=== PATIENT | male | born 1930 | race Hispanic/Latino ===

== ENCOUNTER 2016-12-30 07:24 | Day surgery (SDC) | payer MEDICARE ==
[2016-11-22 19:06] VITALS: BMI 16.4
[2016-12-30 14:43] VITALS: RESP 18; O2SAT 96
--- NOTE | 2016-12-30 14:44 | CP.SDSHP ---
Same Day Surgery H & P - History Proposed Procedure: Removal of right tunneled PICC Pre-Op Diagnosis: Completion of IV medication - Allergies Allergies: Allergies No Known Allergies Allergy (Verified 12/30/16 08:41) - Physical Exam Vital Signs: Vital Signs 12/30/16 12/30/16 12/30/16 08:21 14:34 14:42 Temperature 97.9 F 97.5 F L 98.3 F Pulse Rate 82 88 71 Respiratory 18 16 18 Rate Blood Pressure 117/77 159/70 H 160/93 H O2 Sat by Pulse 98 98 96 Oximetry Short Stay Discharge - Short Stay Discharge Admitting Diagnosis/Reason for Visit: PICC LINE, DEHYDRATION, SEPSIS Disposition: HOME/ ROUTINE Referrals: Gareth Kent MD [Primary Care Provider] -
--- NOTE | 2016-12-30 14:45 | PCM.SURG1 ---
Surgeon's Initial Post Op Note - Surgeon's Notes Surgeon: Mayte [employer]: None Type of Anesthesia: Local Pre-Operative Diagnosis: Completion of the IV medication Operative Findings: Right tunneled PICC Post-Operative Diagnosis: Completion of IV medication Operation Performed: Removal of right tunneled PICC Specimen/Specimens Removed: Right tunneled PICC Estimated Blood Loss: EBL {In ML}: 1 Date of Surgery/Procedure: 12/30/16 Time of Surgery/Procedure: 14:00
[2016-12-30 15:22] VITALS: BP 148/72; PULSE 75; TEMP 97.8
--- NOTE | 2016-12-30 16:30 | VASCULAR ---
Removal of right-sided tunneled PICC History: Completion of long-term IV access. Comparison: Images from 08/01/2016. Procedure and findings: Informed consent was obtained after explaining relative risks and benefits of the procedure. A warehouse packer image of the right-sided tunneled PICC was obtained. The right neck was then prepped and draped in the usual sterile techniques. 1 % lidocaine was used to anesthetize and hydro dissect the tunneled segment of the existing catheter. Blunt and sharp dissection was used to free the cuffed segment. Eventually the PICC was removed. Compression over the venotomy site in the right IJV was performed to achieve hemostasis. A sterile dressing was placed over the tunneling site in the right upper chest. A fluoroscopic image demonstrating removal of the catheter was obtained. Impression: Successful removal of right-sided tunneled PICC.
== END 2016-12-30 15:41 | disposition home or self-care (01) ==
LOC: H.OPSURG 07:24
PROVIDERS: ATTEND Family Medicine
DX: Z45.2 Encounter for adjustment and management of vascular access device (principal)
CPT/HCPCS: 36589; A4310

== ENCOUNTER 2017-12-25 09:54 | Inpatient (IN) | payer MEDICARE ==
[2017-12-25 09:54] VITALS: BMI 16.4
[2017-12-25] MEDS ORDERED: Iohexol 240 (50 ml) PO ONE (10:32)
[2017-12-25] MEDS ORDERED: Sodium Chloride 0.9% 1,000 ML IV STA (10:33)
[2017-12-25] MEDS ORDERED: Iohexol 240 (50 ml) ONE (10:42)
--- NOTE | 2017-12-25 10:52 | ED PDOC ---
HPI: Abdomen Time Seen by Provider: 12/25/17 10:00 Chief Complaint (Nursing): Abdominal Pain Chief Complaint (Provider): Abdominal pain, diarrhea History Per: Patient History/Exam Limitations: no limitations Onset/Duration Of Symptoms: Days (x6) Current Symptoms Are (Timing): Still Present Quality Of Discomfort: Cramping Associated Symptoms: Vomiting, Diarrhea. denies: Fever, Chills, Chest Pain Additional Complaint(s): Ravinrda Engel is an 87 year old male with a past medical history of sinus, prostate, and kidney problems, who is presenting to the ER with complains of diarrhea with associated abdominal pain and cramping, onset 6 days ago. Patient reports that his last episode of diarrhea was at 4 am, and he also states he had one episode of vomiting. He denies any fevers, chills, headache, chest pain , or shortness of breath. Patient offers no other medical complaints at this time. PMD: none provided Past Medical History Reviewed: Historical Data, Nursing Documentation, Vital Signs Vital Signs: Last Vital Signs Temp 97.3 F L 12/28/17 20:00 Pulse 72 12/28/17 22:00 Resp 22 12/28/17 22:00 BP 115/62 12/28/17 22:00 Pulse Ox 100 12/28/17 22:00 - Medical History PMH: Benign Prostatic Hyperplasia, Cardia Arrhythmia (ATRIAL FIB.), HTN, Hypothyroidism, Chronic Kidney Disease Denies: Atrial Fibrillation, Bipolar Disorder - Surgical History Surgical History: No Surg Hx - Family History Family History: States: Unknown Family Hx - Social History Current smoker - smoking cessation education provided: No Alcohol: None Drugs: Denies - Immunization History Hx Tetanus Toxoid Vaccination: No Hx Influenza Vaccination: Yes Hx Pneumococcal Vaccination: Yes - Home Medications Home Medications: Ambulatory Orders Medication Instructions Recorded Calcitriol [Rocaltrol] 0.25 mcg PO DAILY 10/18/16 Calcium Acetate [Phoslo] 667 mg PO TID 12/30/16 Folic Acid/Vit B Complex and C 1 tab PO DAILY 12/30/16 [Renal Vitamin Tablet] Levothyroxine [Synthroid] 75 mcg PO DAILY 12/30/16 Ergocalciferol (Vitamin D2) 50,000 unit PO QWK 12/25/17 [Vitamin D2] Finasteride [Proscar] 5 mg PO QPM 12/25/17 Metoprolol Succinate [Toprol XL] 25 mg PO DAILY 12/25/17 Tamsulosin [Flomax] 0.4 mg PO QPM 12/25/17 - Allergies Allergies/Adverse Reactions: Allergies Allergy/AdvReac Type Severity Reaction Status Date / Time No Known Allergies Allergy Verified 12/25/17 10:03 Review of Systems ROS Statement: Except As Marked, All Systems Reviewed And Found Negative Constitutional: Negative for: Fever, Chills Cardiovascular: Negative for: Chest Pain Respiratory: Negative for: Shortness of Breath Gastrointestinal: Positive for: Vomiting, Abdominal Pain, Diarrhea Physical Exam - Reviewed Nursing Documentation Reviewed: Yes Vital Signs Reviewed: Yes - Physical Exam Appears: Positive for: Non-toxic, No Acute Distress Head Exam: Positive for: ATRAUMATIC, NORMAL INSPECTION, NORMOCEPHALIC Skin: Positive for: Normal Color, Warm, Dry Eye Exam: Positive for: EOMI, Normal appearance, PERRL ENT: Positive for: Other (dry mucous membranes) Neck: Positive for: Normal, Painless ROM, Supple Cardiovascular/Chest: Positive for: Regular Rate, Rhythm. Negative for: Murmur Respiratory: Positive for: Normal Breath Sounds. Negative for: Respiratory Distress Gastrointestinal/Abdominal: Positive for: Normal Exam, Soft. Negative for: Tenderness Back: Positive for: Normal Inspection. Negative for: L CVA Tenderness, R CVA Tenderness, Vertebral Tenderness Extremity: Positive for: Normal ROM. Negative for: Pedal Edema, Deformity Neurologic/Psych: Positive for: Alert, Oriented. Negative for: Motor/Sensory Deficits - Laboratory Results Result Diagrams: 12/28/17 04:20 12/28/17 04:20 - ECG O2 Sat by Pulse Oximetry: 98 (RA) Pulse Ox Interpretation: Normal Medical Decision Making Medical Decision Making: Time: 10:32 Plan: --CT Abd/Pelvis --CMP --CBC --IV Fluids --Omnipaque 240 50 ml PO Labs [address] CT ordered to rule out diverticulitis and colitis. Time: 15:04 Patient feeling gassy. Will order Pepcid. Low potassium noted due to diarrhea and will replete. Awaiting CT. Discussed all findings and plan with family. Patient is aware of chronic renal insufficiency. Time: 16:[address] Perez. Patient has a high grade small bowel obstruction. Calling patient's PMD Dr. Kent. CT ABDOMEN AND PELVIS FINDINGS: LOWER THORAX: Unremarkable. LIVER: Unremarkable. No gross lesion or ductal dilatation. Incidental finding(s): Simple cyst right hepatic lobe a finding identified previously and unchanged. GALLBLADDER AND BILE DUCTS: Unremarkable. PANCREAS: Unremarkable. No gross lesion or ductal dilatation. SPLEEN: Unremarkable. ADRENALS: Unremarkable. No mass. KIDNEYS AND URETERS: Unremarkable. No hydronephrosis. No solid mass. VASCULATURE: Unremarkable. No aortic aneurysm. BOWEL: Distal high-grade small bowel obstruction associate with "Whirl sign" APPENDIX: A normal appendix is not visualized PERITONEUM: Trace intra-abdominal pelvic ascites. No free air identified. LYMPH NODES: Unremarkable. No enlarged lymph nodes. BLADDER: Anterior bladder diverticulum. Otherwise unremarkable. REPRODUCTIVE: Unremarkable. BONES: Spell er right greater right high sec [place] [facility] daycare view in view HGB OTHER FINDINGS: None. IMPRESSION: High-grade distal small bowel obstruction with secondary signs suggestive of closed loop obstruction including rotation of the mesenteries and associated vessels. Communication of results: I discussed findings directly with attending physician in the emergency department, Dr. Espinoza. Results conveyed verbally at 16:14 Time: 16:19 Dr. Kent contacted, requesting Dr. Copeland for surgery. Time: 16:[address] Copeland. Ordered fluids, gilbert, NPO, NG tube. Dr. Copeland asked I contact the surgical garment fitter. spoke with the resident who placed the NGT in the ER. pt admitted to [facility] for surgery pt made aware and nephew made aware as well of plan. Scribe Attestation: Documented by Sanna Marroquni, acting as a scribe for Cierra Espinoza MD. Provider Scribe Attestation: All medical record entries made by the Scribe were at my direction and personally dictated by me. I have reviewed the chart and agree that the record accurately reflects my personal performance of the history, physical exam, medical decision making, and the department course for this patient. I have also personally directed, reviewed, and agree with the discharge instructions and disposition. Disposition - Clinical Impression Clinical Impression: Abdominal pain, Intestinal obstruction - Patient ED Disposition Is Patient to be Admitted: Yes Counseled Patient/Family Regarding: Studies Performed, Diagnosis - Disposition Disposition Time: 14:00 Condition: GUARDED - Pt Status Changed To: Hospital Disposition Of: Inpatient - Admit Certification Admit to Inpatient:: After my assessment, the patient will require hospitalization for at least two midnights. This is because of the severity of symptoms shown, intensity of services needed, and/or the medical risk in this patient being treated as an outpatient.
[2017-12-25 11:12] LABS: BASO % 0.4 % (0.0-2.0); EOS % 0.4 % (0.0-4.0); HEMOGLOBIN 13.1 g/dL (12.0-18.0); LYMPH # 0.9 K/uL (1.0-4.3); LYMPH % 11.1 % (20.0-40.0); MEAN CELL VOLUME 98.5 fl (80.0-94.0); MEAN CORPUSCULAR HEMOGLOBIN 33.2 pg (27.0-31.0); MEAN CORPUSCULAR HGB CONC 33.7 g/dL (33.0-37.0); MEAN PLATELET VOLUME 8.9 fl (7.2-11.7); MONO # 0.9 K/uL (0.0-0.8); MONO % 11.4 % (0.0-10.0); NEUT # 5.9 K/uL (1.8-7.0); NEUT % 76.7 % (50.0-75.0); RBC 3.95 Mil/uL (4.40-5.90); RED CELL DISTRIBUTION WIDTH 12.6 % (11.5-14.5); WHITE BLOOD COUNT 7.7 K/uL (4.8-10.8)
[2017-12-25 11:24] LABS: ALB/GLOB RATIO 1.3 (1.0-2.1); ALBUMIN 3.4 g/dL (3.5-5.0)
--- NOTE | 2017-12-25 14:49 | CARD ---
APPROVED REPORT EKG Measurement Heart [id number] <Conclusion> Sinus rhythm with occasional premature ventricular complexes Otherwise normal ECG
[2017-12-25] MEDS ORDERED: Potassium Chloride 20 mEq ER Tab PO ONE (14:57)
--- NOTE | 2017-12-25 16:23 | CT ---
PROCEDURE: CT Abdomen and Pelvis with contrast HISTORY: Diarrhea, abdominal pain COMPARISON: 07/27/2016 TECHNIQUE: Oral contrast only. Hepatic and are Radiation dose: Total exam DLP = 235.29 mGy-cm. This CT exam was performed using one or more of the following dose reduction techniques: Automated exposure control, adjustment of the mA and/or kV according to patient size, and/or use of iterative reconstruction technique. FINDINGS: LOWER THORAX: Unremarkable. LIVER: Unremarkable. No gross lesion or ductal dilatation. Incidental finding(s): Simple cyst right hepatic lobe a finding identified previously and unchanged. GALLBLADDER AND BILE DUCTS: Unremarkable. PANCREAS: Unremarkable. No gross lesion or ductal dilatation. SPLEEN: Unremarkable. ADRENALS: Unremarkable. No mass. KIDNEYS AND URETERS: Unremarkable. No hydronephrosis. No solid mass. VASCULATURE: Unremarkable. No aortic aneurysm. BOWEL: Distal high-grade small bowel obstruction associate with "Whirl sign" APPENDIX: A normal appendix is not visualized PERITONEUM: Trace intra-abdominal pelvic ascites. No free air identified. LYMPH NODES: Unremarkable. No enlarged lymph nodes. BLADDER: Anterior bladder diverticulum. Otherwise unremarkable. REPRODUCTIVE: Unremarkable. BONES: Spell er right greater right high sec [facility] daycare view in view HGB OTHER FINDINGS: None. IMPRESSION: High-grade distal small bowel obstruction with secondary signs suggestive of closed loop obstruction including rotation of the mesenteries and associated vessels. Communication of results: I discussed findings directly with attending physician in the emergency department, Dr. Espinoza. Results conveyed verbally at 16:14
--- NOTE | 2017-12-25 17:10 | CP.PCM.CON ---
History of Present Illness - History of Present Illness History of Present Illness: SURGERY CONSULT NOTE FOR DR. MURRAY 87M presents with abdominal distention and discomfort. He states he has been having these symptoms for the past 6 days. He states the symptoms have been associated with diarrhea with has also been going on for 6 days. He admits to nausea and vomiting. He vomited once yesterday and it consisted of food. He denies fevers and chills. PMH: Benign Prostatic Hyperplasia, Cardia Arrhythmia (ATRIAL FIB.), HTN, Hypothyroidism, Chronic Kidney Disease PSH: Denies Social: Denies tobacco, alcohol and illicit drugs Allergies: NKDA Past Patient History - Past Medical History & Family History Past Medical History?: Yes - Past Social History Smoking Status: Former Smoker - CARDIAC Hx Cardiac Disorders: Yes - PULMONARY Hx Respiratory Disorders: No - NEUROLOGICAL Hx Neurological Disorder: No - HEENT Hx HEENT Problems: No - RENAL Hx Chronic Kidney Disease: Yes - ENDOCRINE/METABOLIC Hx Endocrine Disorders: Yes - HEMATOLOGICAL/ONCOLOGICAL Hx Blood Disorders: No - INTEGUMENTARY Hx Dermatological Problems: No - MUSCULOSKELETAL/RHEUMATOLOGICAL Hx Musculoskeletal Disorders: No - GENITOURINARY/GYNECOLOGICAL Hx Genitourinary Disorders: No - PSYCHIATRIC Hx Psychophysiologic Disorder: No - SURGICAL HISTORY Hx Surgeries: Yes Hx Cataract Extraction: Yes (Left eye) Other/Comment: HX: PROSTATE BIOPSY. HX: CMG; CYSTO 10/23/16 - ANESTHESIA Hx Anesthesia: Yes Hx Anesthesia Reactions: No Hx Malignant Hyperthermia: No Meds Allergies/Adverse Reactions: Allergies Allergy/AdvReac Type Severity Reaction Status Date / Time No Known Allergies Allergy Verified 12/25/17 10:03 Physical Exam - Constitutional Appears: Other (uncomfortable) - Head Exam Head Exam: ATRAUMATIC - Eye Exam Eye Exam: EOMI, PERRL - ENT Exam ENT Exam: Mucous Membranes Moist - Respiratory Exam Respiratory Exam: Clear to Auscultation Bilateral, NORMAL BREATHING PATTERN - Cardiovascular Exam Cardiovascular Exam: REGULAR RHYTHM, +S1, +S2 - GI/Abdominal Exam GI & Abdominal Exam: Distended, Soft, Tenderness. absent: Firm, Guarding, Rebound, Rigid - Neurological Exam Neurological exam: Alert, Oriented x3 - Psychiatric Exam Psychiatric exam: Normal Affect, Normal Mood - Skin Skin Exam: Dry, Intact, Normal Color, Warm Results - Vital Signs Recent Vital Signs: Last Vital Signs Temp 97.9 F 12/25/17 16:40 Pulse 88 12/25/17 16:40 Resp 14 12/25/17 16:40 BP 118/75 12/25/17 16:40 Pulse Ox 98 12/25/17 16:33 - Labs Result Diagrams: 12/25/17 11:03 12/25/17 11:03 Labs: Laboratory Results - last 24 hr 12/25/17 12/25/17 12/25/17 10:19 11:03 11:03 WBC 7.7 RBC 3.95 L Hgb 13.1 D Hct 38.9 MCV 98.5 H D MCH 33.2 H MCHC 33.7 RDW 12.6 Plt Count 130 MPV 8.9 Neut % (Auto) 76.7 H Lymph % (Auto) 11.1 L [place] % (Auto) 11.4 H Eos % (Auto) 0.4 Baso % (Auto) 0.4 Neut # (Auto) 5.9 Lymph # (Auto) 0.9 L [place] # (Auto) 0.9 H Eos # (Auto) 0.0 Baso # (Auto) 0.0 Sodium 139 Potassium 3.2 L Chloride 96 L Carbon Dioxide 29 Anion Gap 17 BUN 36 H Creatinine 1.6 H Est GFR ( Amer) 50 Est GFR (Non-Af Amer) 41 POC Glucose (mg/dL) 85 Random Glucose 92 Calcium 9.0 Total Bilirubin 0.8 AST 28 ALT 47 Alkaline Phosphatase 45 Total Protein 6.0 L Albumin 3.4 L Globulin 2.7 Albumin/Globulin Ratio 1.3 Assessment & Plan - Assessment and Plan (Free Text) Assessment: 87M presents with small bowel obstruction Plan: - NPO, IVF - Pain control, anti-emetic - Placement of NGT, monitor output - serial abdominal exams Further recs discuss with Dr. Dinorah Silva, PGY2
[2017-12-25] MEDS ORDERED: Sodium Chloride 0.9% 1,000 ML IV SCH (17:30)
[2017-12-25] MEDS ORDERED: Etomidate 20 mg/10ml Inj IV ONE (18:43)
[2017-12-25] MEDS ORDERED: Rocuronium 10 mg/ml (5 ml) ONE (18:43)
[2017-12-25] MEDS ORDERED: Succinylcholine 200 mg/10 ml Inj IV ONE (18:43)
[2017-12-25] MEDS ORDERED: Lidocaine 1% Inj (20ml) ONE (18:46)
[2017-12-25] MEDS ORDERED: Bupivacaine 0.5% Inj(30mL) ONE (18:46)
[2017-12-25] MEDS ORDERED: Ketamine 50 mg/ml Inj (10 ml) ONE (18:47)
[2017-12-25] MEDS ORDERED: Ciprofloxacin 400mg/200ml D5W 0 MG/0 ML BAG IVPB ONE (18:47)
[2017-12-25] MEDS ORDERED: metroNIDAZOLE 500mg/100ml NS 0 ML IVPB ONE (18:47)
[2017-12-25 18:49] LABS: PARTIAL THROMBOPLASTIN TIME 30.2 Seconds (25.6-37.1); PROTHROMBIN TIME 11.6 Seconds (9.8-13.1)
--- NOTE | 2017-12-25 18:57 | RAD ---
HISTORY: s/p NGT COMPARISON: CT abdomen and pelvis performed earlier the same day. TECHNIQUE: Chest, one view. FINDINGS: Nasogastric tube extends beyond the hemidiaphragm towards expected location of the stomach. LUNGS: No focal consolidation. Please note that chest x-ray has limited sensitivity for the detection of pulmonary masses. PLEURA: No significant pleural effusion identified. No definite pneumothorax . CARDIOVASCULAR: Heart size appears within normal limits. OSSEOUS STRUCTURES: Degenerative changes. VISUALIZED UPPER ABDOMEN: Nonspecific prominence of bowel loops within the upper abdomen. Question vague lucent appearance within the upper abdomen; free air cannot be excluded. OTHER FINDINGS: None. IMPRESSION: Nasogastric tube extends to the expected location of the stomach, distal tip excluded from view. Nonspecific prominence of bowel loops within the upper abdomen. Question vague lucent appearance within the upper abdomen; free air cannot be excluded. Correlate clinically. Findings discussed with MARGUERITE Cárdenas on 12/25/17 at 6:54 p.m..
[2017-12-25] MEDS ORDERED: cefOXitin IV 1 gm in Dextrose 2 GM/100 ML BAG IVPB ONE (19:17)
[2017-12-25] MEDS ORDERED: Lactated Ringer's 500 ML IV ONE ×4 (19:20→20:00)
[2017-12-25] MEDS ORDERED: Neostigmine 1:1000 (1 mg/ml) Inj ONE (20:24)
--- NOTE | 2017-12-25 20:31 | PCM.SURG1 ---
Surgeon's Initial Post Op Note - Surgeon's Notes Surgeon: MD Dinorah [employer] Officer: Ricardo PGY2. NOEMI HernandezY1 Pre-Operative Diagnosis: Closed loop small bowel obstruction Operative Findings: Omental band causing bowel obstruction, dilated small bowel , mesenteric torsion Post-Operative Diagnosis: Closed loop small bowel obstruction, Mesenteric torsion Operation Performed: Exploratomy laparotomy, lysis of omental band, reduction of mesenteric torsion Specimen/Specimens Removed: n/a Estimated Blood Loss: EBL {In ML}: 10 Date of Surgery/Procedure: 12/25/17 Time of Surgery/Procedure: 19:45
[2017-12-25] MEDS ORDERED: HYDROmorphone 0.5 mg/0.5 ml ISec IVP PRN ×3 (20:33→21:27)
[2017-12-25] MEDS ORDERED: HYDROmorphone 0.5 mg/0.5 ml ISec ONE (20:54)
[2017-12-25] MEDS ORDERED: Lactated Ringer's 1,000 ML IV SCH (21:30)
--- NOTE | 2017-12-25 21:33 | PCM.ANESB5 ---
Transverse Abdominis Block - Transverse Abdominis Plane Date of Procedure: 12/25/17 Anesthesiologist: Adele Pre-Procedure Diagnosis: Small Bowel Obstruction Procedure Performed: Transverse Abdominis Plane Nerve Block Left, Transverse Abdominis Plane Nerve Block Right - Procedure Transverse Abdominis Plane Nerve Block: The procedure was explained to the patient that it is for post-operative pain management and would be performed after surgery. Consent was obtained prior to surgery after a thorough discussion with the patient regarding the benefits and possible complications of transverse abdominis plane block. After the surgery had concluded and before the patient emerged from general anesthesia, time-out was held with the circulating nurse to re-confirm the appropriate block. With the patient in supine position, the ultrasound probe was placed transverse to the abdominal wall at the mid-axillary line above the iliac crest of the appropriate side. The skin, subcutaneous tissue, fat, external oblique muscle, internal oblique muscle, and the transverse abdominis muscle were identified. The general area of the block site was then prepped with Betadine three times. At this point, a # 21-gauge Stimuplex 4-inch needle was inserted posterior to and in plane with the ultrasound probe and directed anteriorly. Needle was advanced under direct ultrasound visualization until it reached the plane between the internal oblique and transverse abdominis muscles. After appropriate placement, 2mL of local anesthetic solution was injected. When the transverse abdominis plane was observed expanding in an ellipsoid way, the rest of the solution was slowly injected. A total of __18____ mL of _0.25____ % __ bupivicaine with 1:200,000 epinephrine was used for this block. The needle was then removed and sterile dressing was applied. Similarly, the same procedure was performed on the other side using the same medications. The patient had stable vital signs throughout and had no untoward complications after emergence from general anesthesia in the recovery room.
[2017-12-25] MEDS ORDERED: Lactated Ringer's 1,000 ML IV ONE (22:00)
[2017-12-25] MEDS: HYDROmorphone 0.5 mg/0.5 ml ISec IVP PRN (23:41)
[2017-12-26 00:53] LABS: ALB/GLOB RATIO 0.8 (1.0-2.1); ALBUMIN 1.4 g/dL (3.5-5.0); ALT/SGPT 30 U/L (21-72); AST/SGOT 15 U/L (17-59); BLOOD UREA NITROGEN 18 mg/dl (9-20); CALCIUM 6.2 mg/dL (8.4-10.2); GFR AFRICAN-AMERICAN > 60; GFR NON-AFRICAN AMERICAN > 60
[2017-12-26 05:08] LABS: ABG ALLEN TEST YES
[2017-12-26 05:34] LABS: ARTERIAL BLOOD GAS HCO3 25.5 mmol/L (21-28); ARTERIAL BLOOD GAS HEMOGLOBIN 12.9 g/dL (11.7-17.4); ARTERIAL BLOOD GAS O2 CAPACITY 17.4 mL/dL (16-24); ARTERIAL BLOOD GAS O2 CONTENT 17.5 ML/dL (15-23); ARTERIAL BLOOD GAS O2 SAT 100.6 % (95-98); ARTERIAL BLOOD GAS PCO2 49 mm/Hg (35-45); ARTERIAL BLOOD GAS PH 7.35 (7.35-7.45); ARTERIAL BLOOD GAS PO2 106 mm/Hg (80-100); ARTERIAL BLOOD GAS TCO2 28.6 mmol/L (22-28)
[2017-12-26] MEDS ORDERED: Lactated Ringer's 1,000 ML IV SCH ×2 (06:01→07:39)
[2017-12-26 06:07] LABS: ALB/GLOB RATIO 1.1 (1.0-2.1); ALBUMIN 2.7 g/dL (3.5-5.0); ALT/SGPT 38 U/L (21-72); AST/SGOT 35 U/L (17-59); BLOOD UREA NITROGEN 28 mg/dl (9-20); CALCIUM 8.2 mg/dL (8.4-10.2); GFR AFRICAN-AMERICAN > 60; GFR NON-AFRICAN AMERICAN 57
[2017-12-26 06:19] LABS: BASO % 0.3 % (0.0-2.0); EOS % 0.1 % (0.0-4.0); HEMOGLOBIN 12.7 g/dL (12.0-18.0); LYMPH # 0.3 K/uL (1.0-4.3); LYMPH % 2.1 % (20.0-40.0); MEAN CORPUSCULAR HEMOGLOBIN 32.6 pg (27.0-31.0); MEAN CORPUSCULAR HGB CONC 32.9 g/dL (33.0-37.0); MEAN PLATELET VOLUME 9.2 fl (7.2-11.7); MONO # 0.7 K/uL (0.0-0.8); NEUT # 13.2 K/uL (1.8-7.0); NEUT % 92.5 % (50.0-75.0); PLATELET COUNT 108 K/uL (130-400); RBC 3.89 Mil/uL (4.40-5.90); RED CELL DISTRIBUTION WIDTH 12.7 % (11.5-14.5); WHITE BLOOD COUNT 14.2 K/uL (4.8-10.8)
--- NOTE | 2017-12-26 07:34 | RAD ---
HISTORY: tachypnea COMPARISON: Portable chest 12/25/2017 FINDINGS: The nasogastric tube appears slightly retracted with the side hole at the esophagogastric junction. Consider advancing the catheter antegrade some 10 - 15 cm into the stomach further. LUNGS: Limited medial basilar atelectasis left base. PLEURA: No significant pleural effusion identified, no pneumothorax apparent. CARDIOVASCULAR: Normal. OSSEOUS STRUCTURES: No significant abnormalities. VISUALIZED UPPER ABDOMEN: Likely postoperative ileus pattern visualized in the upper abdomen once again. Clinically correlate as differential diagnosis would be bowel obstruction. Skin griffin again noted midline abdomen. OTHER FINDINGS: None. IMPRESSION: No acute infiltrate bilaterally. Limited atelectasis seen the medial left base. Nasogastric tube is retracted slightly with the side hole at the esophagogastric junction. Advancement of the catheter further into the stomach is advised following confirmation radiography. Incidental probable postoperative ileus upper abdomen. Clinically correlate further.
[2017-12-26] MEDS: HYDROmorphone 0.5 mg/0.5 ml ISec IVP PRN ×2 (07:53→17:17)
--- NOTE | 2017-12-26 08:09 | CP.PCM.PN ---
Subjective - Date & Time of Evaluation Date of Evaluation: 12/26/17 Time of Evaluation: 08:06 - Subjective Subjective: SURGERY CONSULT NOTE FOR DR. MURRAY Patient seen and evaluated at bedside. Denies of any acute overnight events. Denies of any pain today. Denies of having any F/N/V/C/SOB/CP. No other complains now. Objective - Vital Signs/Intake and Output Vital Signs (last 24 hours): Temp Pulse Resp BP Pulse Ox 99.1 F 75 20 115/72 97 12/26/17 07:55 12/26/17 07:55 12/26/17 07:55 12/26/17 07:55 12/26/17 07:55 Intake and Output: 12/26/17 12/26/17 06:59 18:59 Intake Total 2650 Output Total 489 Balance 2161 - Medications Medications: Current Medications Acetaminophen (Tylenol 650 Mg Supp) [address] Q6 PRN PRN Reason: Pain, Mild (1-3) Heparin Sodium (Porcine) (Heparin) 5,000 units SC Q8 TERRY PRN Reason: Protocol Last Admin: 12/26/17 04:15 Dose: Not Given Hydromorphone HCl (Dilaudid) 0.25 mg IVP Q4 PRN PRN Reason: Pain, severe (8-10) Last Admin: 12/26/17 07:53 Dose: 0.25 mg Lactated Ringer's (Lactated Ringer's) 1,000 mls @ 80 mls/hr IV .[id number] COUNTS INCLUDE 234 BEDS AT THE [facility] Last Admin: 12/26/17 07:58 Dose: 80 mls/hr Ondansetron HCl (Zofran Inj) 4 mg IVP Q6 PRN PRN Reason: Nausea/Vomiting Pantoprazole Sodium (Protonix Inj) 40 mg IVP DAILY COUNTS INCLUDE 234 BEDS AT THE [facility] - Labs Labs: 12/26/17 04:25 12/26/17 04:25 PT 11.6 Seconds (9.8-13.1) 12/25/17 18:27 INR 1.0 (0.9-1.2) 12/25/17 18:27 APTT 30.2 Seconds (25.6-37.1) 12/25/17 18:27 - Constitutional Appears: Well, Non-toxic, No Acute Distress - Head Exam Head Exam: ATRAUMATIC - Eye Exam Eye Exam: Normal appearance - ENT Exam ENT Exam: Normal Exam - Neck Exam Neck Exam: Full ROM - Respiratory Exam Respiratory Exam: NORMAL BREATHING PATTERN - GI/Abdominal Exam GI & Abdominal Exam: Soft, Tenderness. absent: Rigid, Hernia, Mass - Rectal Exam Rectal Exam: Deferred - Extremities Exam Extremities Exam: Normal Inspection. absent: Calf Tenderness - Back Exam Back Exam: NORMAL INSPECTION - Neurological Exam Neurological Exam: Alert, Awake, Oriented x3 - Psychiatric Exam Psychiatric exam: Normal Affect, Normal Mood - Skin Skin Exam: Intact, Normal Color, Warm Assessment and Plan - Assessment and Plan (Free Text) Assessment: 87 year old male s/p Exploratomy laparotomy, lysis of omental band, reduction of mesenteric torsion POD#1 Plan: Pain control Remove NG tube off suction Start liquid diet Monitor urine output
[2017-12-26 09:32] LABS: BANDS 9 % (0-2); EOSINOPHIL 1 % (0-7); LYMPHOCYTE 4 % (20-50); MONOCYTE 6 % (0-10); NEUTROPHIL 80 % (42-75); TOTAL CELLS COUNTED 100
[2017-12-26 09:33] LABS: PLATELET ESTIMATE NORMAL (NORMAL)
[2017-12-26 09:38] LABS: ANISOCYTOSIS SLIGHT; BURR CELLS SLIGHT; LARGE PLATELETS PRESENT; POIKILOCYTOSIS SLIGHT
--- NOTE | 2017-12-26 10:20 | CP.PCM.HP ---
History of Present Illness - History of Present Illness History of Present Illness: 87 y/o M with Hx of prostate problems, a.fib, hypothyroid, dysarthria, and CKD presented to ED c/o abd pain and NMNM diarrhea for 6 days. He had 1 NBNB vomiting. As per patient pain progressively increased in intensity over the past week. Denies CP, SOB, palpitations or fever. CT abd at ED showed high grade SBO EKG: PVCs normal sinus rhythm CXR no active disease CMP: CKD St 3A, Hypokalemia likely to GI losses Present on Admission - Present on Admission Any Indicators Present on Admission: No Review of Systems - Review of Systems All systems: reviewed and no additional remarkable complaints except - Gastrointestinal Gastrointestinal: Abdominal Pain, Diarrhea, Vomiting Past Patient History - Past Medical History & Family History Past Medical History?: Yes - Past Social History Smoking Status: Former Smoker - CARDIAC Hx Cardiac Disorders: Yes Hx Atrial Fibrillation: Yes Hx Hypertension: Yes (pt denies) - PULMONARY Hx Respiratory Disorders: No - NEUROLOGICAL Hx Neurological Disorder: No - HEENT Hx HEENT Problems: No - RENAL Hx Chronic Kidney Disease: Yes - ENDOCRINE/METABOLIC Hx Endocrine Disorders: Yes Hx Hypothyroidism: Yes - HEMATOLOGICAL/ONCOLOGICAL Hx Blood Disorders: No - INTEGUMENTARY Hx Dermatological Problems: No - MUSCULOSKELETAL/RHEUMATOLOGICAL Hx Musculoskeletal Disorders: No Hx Falls: No - GASTROINTESTINAL Hx Gastrointestinal Disorders: No - GENITOURINARY/GYNECOLOGICAL Hx Genitourinary Disorders: Yes Hx Prostate Problems: Yes Other/Comment: BPH - PSYCHIATRIC Hx Psychophysiologic Disorder: No - SURGICAL HISTORY Hx Surgeries: Yes Hx Cataract Extraction: Yes (Left eye) Hx Tonsillectomy: Yes Other/Comment: HX: PROSTATE BIOPSY. HX: CMG; CYSTO 10/23/16 - ANESTHESIA Hx Anesthesia: Yes Hx Anesthesia Reactions: No Hx Malignant Hyperthermia: No Meds Allergies/Adverse Reactions: Allergies Allergy/AdvReac Type Severity Reaction Status Date / Time No Known Allergies Allergy Verified 12/25/17 10:03 Physical Exam - Constitutional Appears: In Acute Distress (pain), Chronically Ill - Eye Exam Eye Exam: EOMI, PERRL - ENT Exam ENT Exam: Mucous Membranes Moist - Respiratory Exam Respiratory Exam: Clear to Auscultation Bilateral, NORMAL BREATHING PATTERN. absent: Rales, Respiratory Distress - Cardiovascular Exam Cardiovascular Exam: +S1, +S2. absent: Gallop - GI/Abdominal Exam GI & Abdominal Exam: Distended (mild), Guarding, Tenderness. absent: Rebound - Extremities Exam Extremities exam: Positive for: normal capillary refill. Negative for: calf tenderness, pedal edema, tenderness - Back Exam Back exam: absent: CVA tenderness (L), CVA tenderness (R) - Neurological Exam Neurological exam: Alert, Oriented x3 - Psychiatric Exam Psychiatric exam: Normal Affect, Normal Mood - Skin Skin Exam: Normal Color, Warm Results - Vital Signs Recent Vital Signs: Last Vital Signs Temp 99.1 F 12/26/17 07:55 Pulse 72 12/26/17 08:59 Resp 18 12/26/17 08:59 BP 120/75 12/26/17 08:59 Pulse Ox 99 12/26/17 08:59 - Labs Result Diagrams: 12/26/17 04:25 12/26/17 04:25 Labs: Laboratory Results - last 24 hr 12/25/17 12/25/17 12/25/17 10:19 11:03 11:03 WBC 7.7 RBC 3.95 L Hgb 13.1 D Hct 38.9 MCV 98.5 H D MCH 33.2 H MCHC 33.7 RDW 12.6 Plt Count 130 MPV 8.9 Neut % (Auto) 76.7 H Lymph % (Auto) 11.1 L [place] % (Auto) 11.4 H Eos % (Auto) 0.4 Baso % (Auto) 0.4 Neut # (Auto) 5.9 Lymph # (Auto) 0.9 L [place] # (Auto) 0.9 H Eos # (Auto) 0.0 Baso # (Auto) 0.0 Neutrophils % (Manual) Band Neutrophils % Lymphocytes % (Manual) Monocytes % (Manual) Eosinophils % (Manual) Platelet Estimate Large Platelets Poikilocytosis (manual Anisocytosis (manual) Valentin Cells PT INR APTT pCO2 pO2 HCO3 ABG pH ABG Total CO2 ABG O2 Saturation ABG O2 Content ABG Base Excess ABG Hemoglobin ABG Carboxyhemoglobin POC ABG HHb (Measured) ABG Methemoglobin ABG O2 Capacity Jose Test A-a O2 Difference Hgb O2 Saturation Vent Mode FiO2 Sodium 139 Potassium 3.2 L Chloride 96 L Carbon Dioxide 29 Anion Gap 17 BUN 36 H Creatinine 1.6 H Est GFR ( Amer) 50 Est GFR (Non-Af Amer) 41 POC Glucose (mg/dL) 85 Random Glucose 92 Lactic Acid Calcium 9.0 Total Bilirubin 0.8 AST 28 ALT 47 Alkaline Phosphatase 45 Total Protein 6.0 L Albumin 3.4 L Globulin 2.7 Albumin/Globulin Ratio 1.3 Blood Type Antibody Screen BBK History Checked 12/25/17 12/25/17 12/25/17 18:00 18:08 18:27 WBC RBC Hgb Hct MCV MCH MCHC RDW Plt Count MPV Neut % (Auto) Lymph % (Auto) [place] % (Auto) Eos % (Auto) Baso % (Auto) Neut # (Auto) Lymph # (Auto) [place] # (Auto) Eos # (Auto) Baso # (Auto) Neutrophils % (Manual) Band Neutrophils % Lymphocytes % (Manual) Monocytes % (Manual) Eosinophils % (Manual) Platelet Estimate Large Platelets Poikilocytosis (manual Anisocytosis (manual) Rex Cells PT 11.6 INR 1.0 APTT 30.2 pCO2 pO2 HCO3 ABG pH ABG Total CO2 ABG O2 Saturation ABG O2 Content ABG Base Excess ABG Hemoglobin ABG Carboxyhemoglobin POC ABG HHb (Measured) ABG Methemoglobin ABG O2 Capacity Jose Test A-a O2 Difference Hgb O2 Saturation Vent Mode FiO2 Sodium Potassium Chloride Carbon Dioxide Anion Gap BUN Creatinine Est GFR ( Amer) Est GFR (Non-Af Amer) POC Glucose (mg/dL) Random Glucose Lactic Acid 1.3 Calcium Total Bilirubin AST ALT Alkaline Phosphatase Total Protein Albumin Globulin Albumin/Globulin Ratio Blood Type B POSITIVE Antibody Screen Negative BBK History Checked Patient has bt 12/26/17 12/26/17 12/26/17 00:31 04:25 04:25 WBC 14.2 H D RBC 3.89 L Hgb 12.7 Hct 38.5 MCV 99.0 H MCH 32.6 H MCHC 32.9 L RDW 12.7 Plt Count 108 L D MPV 9.2 Neut % (Auto) 92.5 H Lymph % (Auto) 2.1 L [place] % (Auto) 5.0 Eos % (Auto) 0.1 Baso % (Auto) 0.3 Neut # (Auto) 13.2 H Lymph # (Auto) 0.3 L [place] # (Auto) 0.7 Eos # (Auto) 0.0 Baso # (Auto) 0.0 Neutrophils % (Manual) 80 H Band Neutrophils % 9 H Lymphocytes % (Manual) 4 L Monocytes % (Manual) 6 Eosinophils % (Manual) 1 Platelet Estimate Normal Large Platelets Present Poikilocytosis (manual Slight Anisocytosis (manual) Slight Rex Cells Slight PT INR APTT pCO2 pO2 HCO3 ABG pH ABG Total CO2 ABG O2 Saturation ABG O2 Content ABG Base Excess ABG Hemoglobin ABG Carboxyhemoglobin POC ABG HHb (Measured) ABG Methemoglobin ABG O2 Capacity Jose Test A-a O2 Difference Hgb O2 Saturation Vent Mode FiO2 Sodium 141 140 Potassium 3.0 L 4.0 Chloride 105 101 Carbon Dioxide 18 L 27 Anion Gap 21 H 16 BUN 18 28 H Creatinine 0.7 L 1.2 Est GFR ( Amer) > 60 > 60 Est GFR (Non-Af Amer) > 60 57 POC Glucose (mg/dL) Random Glucose 54 L 70 L Lactic Acid Calcium 6.2 L 8.2 L Total Bilirubin 0.6 1.1 AST 15 L D 35 ALT 30 38 Alkaline Phosphatase < 20 L D 37 L D Total Protein 3.2 L 5.1 L Albumin 1.4 L D 2.7 L D Globulin 1.8 L 2.4 Albumin/Globulin Ratio 0.8 L 1.1 Blood Type Antibody Screen BBK History Checked 12/26/17 04:53 WBC RBC Hgb Hct MCV MCH MCHC RDW Plt Count MPV Neut % (Auto) Lymph % (Auto) [place] % (Auto) Eos % (Auto) Baso % (Auto) Neut # (Auto) Lymph # (Auto) [place] # (Auto) Eos # (Auto) Baso # (Auto) Neutrophils % (Manual) Band Neutrophils % Lymphocytes % (Manual) Monocytes % (Manual) Eosinophils % (Manual) Platelet Estimate Large Platelets Poikilocytosis (manual Anisocytosis (manual) Valentin Cells PT INR APTT pCO2 49 H pO2 106 H HCO3 25.5 ABG pH 7.35 ABG Total CO2 28.6 H ABG O2 Saturation 100.6 H ABG O2 Content 17.5 ABG Base Excess 0.8 ABG Hemoglobin 12.9 ABG Carboxyhemoglobin 2.7 H POC ABG HHb (Measured) -0.6 L ABG Methemoglobin 2.2 ABG O2 Capacity 17.4 Jose Test Yes A-a O2 Difference 32.0 Hgb O2 Saturation 95.6 Vent Mode N/c FiO2 28.0 Sodium Potassium Chloride Carbon Dioxide Anion Gap BUN Creatinine Est GFR ( Amer) Est GFR (Non-Af Amer) POC Glucose (mg/dL) Random Glucose Lactic Acid Calcium Total Bilirubin AST ALT Alkaline Phosphatase Total Protein Albumin Globulin Albumin/Globulin Ratio Blood Type Antibody Screen BBK History Checked Assessment & Plan - Assessment and Plan (Free Text) Assessment: 87 y/o admitted for SBO Surgery consult stat NPO, bowel rest Pain control IV fluids Supportive treatment EKG: Sinus rhythm with unifocal PVCs Medically cleared for Sx CKD St 3A: Monitor Hypothyroid: C/w home med BPH: C/w home meds Hx of afib: Rate and rhythm controlled. C/W low dose BB Hypokalemia: potassium replaced at ED/Monitor
[2017-12-26] MEDS ORDERED: Dextrose 50% SYRINGE Inj (50 ml) IVP PRN (10:28)
[2017-12-26] MEDS ORDERED: Glucagon Recombinant 1 mg Inj IM PRN (10:28)
--- NOTE | 2017-12-26 10:37 | CP.PCM.PN ---
Subjective - Date & Time of Evaluation Date of Evaluation: 12/26/17 Time of Evaluation: 09:40 - Subjective Subjective: POD1 S/P SBO. Stable Alert and awake Pain controlled Denies nausea or vomiting Denies CP, palpitations, SOB NG tube in place Afebrile Objective - Vital Signs/Intake and Output Vital Signs (last 24 hours): Temp Pulse Resp BP Pulse Ox 99.1 F 72 18 120/75 99 12/26/17 07:55 12/26/17 08:59 12/26/17 08:59 12/26/17 08:59 12/26/17 08:59 Intake and Output: 12/26/17 12/26/17 06:59 18:59 Intake Total 2650 Output Total 489 85 Balance 2161 -85 - Medications Medications: Current Medications Acetaminophen (Tylenol 650 Mg Supp) 650 mg VA Q6 PRN PRN Reason: Pain, Mild (1-3) Dextrose (Dextrose 50% Inj) 0 ml IVP STAT PRN; Protocol PRN Reason: Hypoglycemia Protocol Finasteride (Proscar) 5 mg PO QPM [facility] Glucagon (Glucagen Diagnostic Kit) 0 mg IM STAT PRN; Protocol PRN Reason: Hypoglycemia Protocol Heparin Sodium (Porcine) (Heparin) 5,000 units SC Q8 TERRY PRN Reason: Protocol Last Admin: 12/26/17 09:40 Dose: 5,000 units Hydromorphone HCl (Dilaudid) 0.25 mg IVP Q4 PRN PRN Reason: Pain, severe (8-10) Last Admin: 12/26/17 07:53 Dose: 0.25 mg Lactated Ringer's (Lactated Ringer's) 1,000 mls @ 80 mls/hr IV .[id number] [facility] Last Admin: 12/26/17 07:58 Dose: 80 mls/hr Levothyroxine Sodium (Synthroid) 75 mcg PO DAILY@0630 [facility] Metoprolol Succinate (Toprol Xl) 25 mg PO DAILY [facility] Ondansetron HCl (Zofran Inj) 4 mg IVP Q6 PRN PRN Reason: Nausea/Vomiting Pantoprazole Sodium (Protonix Inj) 40 mg IVP DAILY [facility] Last Admin: 12/26/17 09:41 Dose: 40 mg Tamsulosin HCl (Flomax) 0.4 mg PO QPM [facility] - Labs Labs: 12/26/17 04:25 12/26/17 04:25 PT 11.6 Seconds (9.8-13.1) 12/25/17 18:27 INR 1.0 (0.9-1.2) 12/25/17 18:27 APTT 30.2 Seconds (25.6-37.1) 12/25/17 18:27 - Constitutional Appears: Non-toxic, Chronically Ill - Eye Exam Eye Exam: EOMI, PERRL - ENT Exam ENT Exam: Mucous Membranes Moist - Respiratory Exam Respiratory Exam: Clear to Ausculation Bilateral, NORMAL BREATHING PATTERN. absent: Decreased Breath Sounds, Rales, Respiratory Distress - Cardiovascular Exam Cardiovascular Exam: +S1, +S2. absent: Gallop - GI/Abdominal Exam GI & Abdominal Exam: Distended (Slightly), Tenderness. absent: Guarding, Rigid , Rebound - Extremities Exam Extremities Exam: Normal Capillary Refill. absent: Calf Tenderness, Pedal Edema - Neurological Exam Neurological Exam: Alert, Awake, Oriented x3 - Psychiatric Exam Psychiatric exam: Normal Affect, Normal Mood - Skin Skin Exam: Normal Color, Warm Assessment and Plan - Assessment and Plan (Free Text) Assessment: POD1 SBO C/W Supportive treatment Surgery consult appreciated I&O Advance diet as tolerated as per Sx team C/W home meds Hypokalemia resolved Transfer to Telemetry unit
--- NOTE | 2017-12-26 15:10 | PQF GENQUE ---
Dr. Kent, Is there an associated diagnosis to go along with the following lab findings? BUN: 36->18->28 Creatinine:1.6->0.7->1.2 GFR : 50/41->>60/>60->60/57 OR: Disagree OR: Other explanation of clinical finding H and P: diagnoses include: Stage 3 CKD 12/25: post-op note; Operation Performed: Exploratomy laparotomy, lysis of omental band, reduction of mesenteric torsion IVF's This form is a permanent part of the medical record Clarification of your documentation is requested to better reflect the severity of illness and intensity of treatment of your patient. Indicators present [] Specify: [] [] Specify: [] [] Specify: [] [] Specify: [] Location in the medical record that reflects the above clinical findings: [] Treatment Provided: [] PHYSICIAN'S RESPONSE Based on your medical judgment of the clinical indicators outlined above please clarify the following: [] Practitioner response [] If unable to determine, please check the box, sign and date. Present On Admission (POA) Indicator: [] Present at the time of admission [] Not present at the time of admission [] Clinically Undetermined In responding to this query, please exercise your independent professional judgment. The fact that a question is asked does not imply that any particular answer is desired or expected. Thank you for your clarification on this documentation. If you have any questions please call. * Thank you, Kalli Levine RN ext. #[phone] MTDD
[2017-12-26] MEDS ORDERED: Influenza Vaccine(65YR UP)/PF 180 MCG/0.5 ML SYRINGE IM ONE (15:32)
[2017-12-26] MEDS ORDERED: Pneumococcal 23-Valent Vaccine IM ONE (15:32)
--- NOTE | 2017-12-27 05:08 | CP.PCM.PN ---
Subjective - Date & Time of Evaluation Date of Evaluation: 12/27/17 Time of Evaluation: 05:06 - Subjective Subjective: SURGERY PROGRESS NOTE FOR DR. MURRAY 87M seen and examined at bedside. Patient states is pain is controlled. denies nausea/vomiting, but admits to hiccups. He states he has been having flatus but denies bowel movements. Tolerating liquid diet. Objective - Vital Signs/Intake and Output Vital Signs (last 24 hours): Temp Pulse Resp BP Pulse Ox 98.3 F 79 29 H 131/78 97 12/27/17 01:00 12/27/17 01:00 12/27/17 01:00 12/27/17 01:00 12/27/17 01:00 Intake and Output: 12/26/17 12/27/17 18:59 06:59 Intake Total 1840 Output Total 760 155 Balance 1080 -155 - Medications Medications: Current Medications Acetaminophen (Tylenol 325mg Tab) 650 mg PO Q6 PRN PRN Reason: Fever >100.4 F Dextrose (Dextrose 50% Inj) 0 ml IVP STAT PRN; Protocol PRN Reason: Hypoglycemia Protocol Finasteride (Proscar) 5 mg PO QPM [facility] Last Admin: 12/26/17 17:21 Dose: 5 mg Glucagon (Glucagen Diagnostic Kit) 0 mg IM STAT PRN; Protocol PRN Reason: Hypoglycemia Protocol Heparin Sodium (Porcine) (Heparin) 5,000 units SC Q8 TERRY PRN Reason: Protocol Last Admin: 12/26/17 17:21 Dose: 5,000 units Hydromorphone HCl (Dilaudid) 0.25 mg IVP Q4 PRN PRN Reason: Pain, severe (8-10) Last Admin: 12/26/17 17:17 Dose: 0.25 mg Levothyroxine Sodium (Synthroid) 75 mcg PO DAILY@0630 [facility] Metoprolol Succinate (Toprol Xl) 25 mg PO DAILY [facility] Ondansetron HCl (Zofran Inj) 4 mg IVP Q6 PRN PRN Reason: Nausea/Vomiting Pantoprazole Sodium (Protonix Inj) 40 mg IVP DAILY [facility] Last Admin: 12/26/17 09:41 Dose: 40 mg Tamsulosin HCl (Flomax) 0.4 mg PO QPM [facility] Last Admin: 12/26/17 17:20 Dose: 0.4 mg - Labs Labs: 12/26/17 04:25 12/26/17 04:25 PT 11.6 Seconds (9.8-13.1) 12/25/17 18:27 INR 1.0 (0.9-1.2) 12/25/17 18:27 APTT 30.2 Seconds (25.6-37.1) 12/25/17 18:27 - Constitutional Appears: Non-toxic, No Acute Distress - Respiratory Exam Respiratory Exam: Clear to Ausculation Bilateral, NORMAL BREATHING PATTERN - Cardiovascular Exam Cardiovascular Exam: REGULAR RHYTHM, +S1, +S2 - GI/Abdominal Exam GI & Abdominal Exam: Soft, Tenderness (mildly tender). absent: Firm, Guarding, Rigid, Rebound Additional comments: incision clean dry intact abdomen mildly distended, but reduced from previous days - Neurological Exam Neurological Exam: Alert, Awake, Oriented x3 - Psychiatric Exam Psychiatric exam: Normal Affect, Normal Mood - Skin Skin Exam: Dry, Intact, Normal Color, Warm Assessment and Plan - Assessment and Plan (Free Text) Assessment: 87M s/p ex-laparotomy, lysis of omental band, detorsion of small bowel mesentery POD2 Plan: Await bowel movement pain control, anti-emetics Advance diet as tolerated Monitor urine output Further recs discuss with Dr. Dinorah Silva, PGY2
[2017-12-27] MEDS: Levothyroxine 75 MCG TAB PO SCH (05:33)
[2017-12-27 05:38] LABS: BASO % 0.2 % (0.0-2.0); EOS % 0.1 % (0.0-4.0); HEMOGLOBIN 12.9 g/dL (12.0-18.0); LYMPH # 0.4 K/uL (1.0-4.3); LYMPH % 2.8 % (20.0-40.0); MEAN CELL VOLUME 98.4 fl (80.0-94.0); MEAN CORPUSCULAR HGB CONC 33.6 g/dL (33.0-37.0); MEAN PLATELET VOLUME 9.7 fl (7.2-11.7); MONO # 1.6 K/uL (0.0-0.8); MONO % 11.2 % (0.0-10.0); NEUT # 12.4 K/uL (1.8-7.0); NEUT % 85.7 % (50.0-75.0); RBC 3.92 Mil/uL (4.40-5.90); RED CELL DISTRIBUTION WIDTH 12.8 % (11.5-14.5); WHITE BLOOD COUNT 14.5 K/uL (4.8-10.8)
[2017-12-27 05:51] LABS: BLOOD UREA NITROGEN 26 mg/dl (9-20); CALCIUM 8.8 mg/dL (8.4-10.2); GFR AFRICAN-AMERICAN > 60; GFR NON-AFRICAN AMERICAN 52
[2017-12-27] MEDS: Metoprolol Succinate 25 mg XL Tab PO SCH (09:29)
--- NOTE | 2017-12-27 17:04 | CP.PCM.PN ---
Subjective - Date & Time of Evaluation Date of Evaluation: 12/27/17 Time of Evaluation: 12:30 - Subjective Subjective: Patient complains of reflux sx Has no fever but noted to have elevated WBC. Has minimal bs. Tolerated clear liquids. Objective - Vital Signs/Intake and Output Vital Signs (last 24 hours): Temp Pulse Resp BP Pulse Ox 98.1 F 90 27 H 131/73 99 12/27/17 16:13 12/27/17 16:13 12/27/17 16:13 12/27/17 16:13 12/27/17 16:13 Intake and Output: 12/27/17 12/27/17 06:59 18:59 Intake Total 150 Output Total 605 300 Balance -605 -150 - Medications Medications: Current Medications Acetaminophen (Tylenol 325mg Tab) 650 mg PO Q6 PRN PRN Reason: Fever >100.4 F Dextrose (Dextrose 50% Inj) 0 ml IVP STAT PRN; Protocol PRN Reason: Hypoglycemia Protocol Finasteride (Proscar) 5 mg PO QPM [facility] Last Admin: 12/26/17 17:21 Dose: 5 mg Glucagon (Glucagen Diagnostic Kit) 0 mg IM STAT PRN; Protocol PRN Reason: Hypoglycemia Protocol Heparin Sodium (Porcine) (Heparin) 5,000 units SC Q8 TERRY PRN Reason: Protocol Last Admin: 12/27/17 09:28 Dose: 5,000 units Hydromorphone HCl (Dilaudid) 0.25 mg IVP Q4 PRN PRN Reason: Pain, severe (8-10) Last Admin: 12/26/17 17:17 Dose: 0.25 mg Cefazolin Sodium 1 gm/ (Dextrose) 100 mls @ 100 mls/hr IVPB Q12 TERRY PRN Reason: Protocol Metronidazole (Flagyl 500mg/100ml Ns) 100 mls @ 100 mls/hr IVPB Q8 TERRY PRN Reason: Protocol Levothyroxine Sodium (Synthroid) 75 mcg PO DAILY@0630 [facility] Last Admin: 12/27/17 05:33 Dose: 75 mcg Metoclopramide HCl (Reglan) 5 mg PO BID [facility] Metoprolol Succinate (Toprol Xl) 25 mg PO DAILY [facility] Last Admin: 12/27/17 09:29 Dose: 25 mg Ondansetron HCl (Zofran Inj) 4 mg IVP Q6 PRN PRN Reason: Nausea/Vomiting Last Admin: 12/27/17 05:33 Dose: 4 mg Pantoprazole Sodium (Protonix Inj) 40 mg IVP DAILY [facility] Last Admin: 12/27/17 09:29 Dose: 40 mg Tamsulosin HCl (Flomax) 0.4 mg PO QPM [facility] Last Admin: 12/26/17 17:20 Dose: 0.4 mg - Labs Labs: 12/27/17 04:39 12/27/17 04:39 PT 11.6 Seconds (9.8-13.1) 12/25/17 18:27 INR 1.0 (0.9-1.2) 12/25/17 18:27 APTT 30.2 Seconds (25.6-37.1) 12/25/17 18:27 Assessment and Plan - Assessment and Plan (Free Text) Plan: start empirical Ancef and flagyl repeat cbc cmp start reglan 5 mg bid OOB to chair phys therapy
[2017-12-27] MEDS: metroNIDAZOLE 500mg/100ml NS 100 ML IVPB SCH (17:56)
[2017-12-28] MEDS: metroNIDAZOLE 500mg/100ml NS 100 ML IVPB SCH ×3 (00:08→18:04)
[2017-12-28] MEDS ORDERED: Albuterol 0.083% Inhal Sol (2.5 mg/3 mL) UD INH STA (04:54)
[2017-12-28] MEDS: Levothyroxine 75 MCG TAB PO SCH (05:40)
[2017-12-28 06:12] LABS: BASO % 0.2 % (0.0-2.0); EOS % 0.1 % (0.0-4.0); HEMOGLOBIN 12.5 g/dL (12.0-18.0); LYMPH # 0.5 K/uL (1.0-4.3); MEAN CELL VOLUME 98.2 fl (80.0-94.0); MEAN CORPUSCULAR HEMOGLOBIN 32.7 pg (27.0-31.0); MEAN CORPUSCULAR HGB CONC 33.3 g/dL (33.0-37.0); MEAN PLATELET VOLUME 9.9 fl (7.2-11.7); MONO # 1.4 K/uL (0.0-0.8); MONO % 11.1 % (0.0-10.0); NEUT # 10.4 K/uL (1.8-7.0); NEUT % 84.6 % (50.0-75.0); RBC 3.82 Mil/uL (4.40-5.90); RED CELL DISTRIBUTION WIDTH 12.8 % (11.5-14.5); WHITE BLOOD COUNT 12.3 K/uL (4.8-10.8)
[2017-12-28 06:29] LABS: ALBUMIN 2.8 g/dL (3.5-5.0); CALCIUM 8.7 mg/dL (8.4-10.2)
[2017-12-28] MEDS: Metoprolol Succinate 25 mg XL Tab PO SCH (08:36)
--- NOTE | 2017-12-28 08:38 | CP.PCM.PN ---
Subjective - Date & Time of Evaluation Date of Evaluation: 12/28/17 Time of Evaluation: 08:37 - Subjective Subjective: Started having wheezing Has no hx of asthma. Has no chest pain Has no fever. On Metoprolol Had one short run of V tach Had not had any b, yet Had urinary retention in the past 24 hrs Objective - Vital Signs/Intake and Output Vital Signs (last 24 hours): Temp Pulse Resp BP Pulse Ox 98.1 F 90 19 116/86 89 L 12/28/17 08:00 12/28/17 08:36 12/28/17 08:00 12/28/17 08:36 12/28/17 08:00 Intake and Output: 12/28/17 12/28/17 06:59 18:59 Intake Total 320 50 Output Total 350 Balance -30 50 - Medications Medications: Current Medications Acetaminophen (Tylenol 325mg Tab) 650 mg PO Q6 PRN PRN Reason: Fever >100.4 F Acetylcysteine (Mucomyst 10% 4ml) 2 ml IH RBID TERRY Albuterol Sulfate (Albuterol 0.083% Inhal [place] (2.5 Mg/3 Ml) Ud) 2.5 mg INH RQ4 PRN PRN Reason: Shortness of Breath Dextrose (Dextrose 50% Inj) 0 ml IVP STAT PRN; Protocol PRN Reason: Hypoglycemia Protocol Finasteride (Proscar) 5 mg PO QPM [facility] Last Admin: 12/27/17 17:51 Dose: 5 mg Furosemide (Lasix) 40 mg IVP ONCE ONE Stop: 12/28/17 08:29 Glucagon (Glucagen Diagnostic Kit) 0 mg IM STAT PRN; Protocol PRN Reason: Hypoglycemia Protocol Heparin Sodium (Porcine) (Heparin) 5,000 units SC Q8 TERRY PRN Reason: Protocol Last Admin: 12/28/17 00:08 Dose: 5,000 units Hydromorphone HCl (Dilaudid) 0.25 mg IVP Q4 PRN PRN Reason: Pain, severe (8-10) Last Admin: 12/26/17 17:17 Dose: 0.25 mg Cefazolin Sodium 1 gm/ (Dextrose) 100 mls @ 100 mls/hr IVPB Q12 TERRY PRN Reason: Protocol Last Admin: 12/27/17 20:55 Dose: 100 mls/hr Metronidazole (Flagyl 500mg/100ml Ns) 100 mls @ 100 mls/hr IVPB Q8 TERRY PRN Reason: Protocol Last Admin: 12/28/17 00:08 Dose: 100 mls/hr Sodium Chloride (Sodium Chloride 0.9%) 1,000 mls @ 80 mls/hr IV .[id number] [facility] Stop: 12/29/17 08:35 Levothyroxine Sodium (Synthroid) 75 mcg PO DAILY@0630 [facility] Last Admin: 12/28/17 05:40 Dose: 75 mcg Metoclopramide HCl (Reglan) 5 mg PO BID [facility] Last Admin: 12/28/17 08:36 Dose: 5 mg Metoprolol Succinate (Toprol Xl) 25 mg PO DAILY [facility] Last Admin: 12/28/17 08:36 Dose: 25 mg Ondansetron HCl (Zofran Inj) 4 mg IVP Q6 PRN PRN Reason: Nausea/Vomiting Last Admin: 12/28/17 04:20 Dose: 4 mg Pantoprazole Sodium (Protonix Inj) 40 mg IVP DAILY [facility] Last Admin: 12/27/17 09:29 Dose: 40 mg Tamsulosin HCl (Flomax) 0.4 mg PO QPM [facility] Last Admin: 12/27/17 17:51 Dose: 0.4 mg - Labs Labs: 12/28/17 04:20 12/28/17 04:20 PT 11.6 Seconds (9.8-13.1) 12/25/17 18:27 INR 1.0 (0.9-1.2) 12/25/17 18:27 APTT 30.2 Seconds (25.6-37.1) 12/25/17 18:27 - Head Exam Head Exam: NORMAL INSPECTION - Eye Exam Eye Exam: Normal appearance - Respiratory Exam Respiratory Exam: Wheezes - Cardiovascular Exam Cardiovascular Exam: Irregular Rhythm - GI/Abdominal Exam GI & Abdominal Exam: Normal Bowel Sounds - Neurological Exam Neurological Exam: Awake, Oriented x3 - Psychiatric Exam Psychiatric exam: Normal Mood Assessment and Plan (1) Intestinal obstruction Status: Acute (2) Hypothyroidism Status: Acute (3) HTN (hypertension) Status: Acute (4) Asthma attack Status: Acute (5) Pneumonia Status: Acute - Assessment and Plan (Free Text) Plan: Cont meds Copnt antibiotics solumedrol neb tx cardiology eval Pulmonary eval
[2017-12-28] MEDS ORDERED: Sodium Chloride 0.9% 1,000 ML IV SCH (08:45)
--- NOTE | 2017-12-28 08:53 | RAD ---
HISTORY: Abdominal pain, recent surgery postoperative evaluation COMPARISON: No prior. FINDINGS: BOWEL: Supine and erect views of the abdomen were obtained. Surgical griffin are seen overlying the abdomen. Residual oral contrast is seen in the in the bowel. Mild diffuse small bowel dilatation is noted as well as some probable mild air within the colon. Finding may suggest postoperative ileus although partial small bowel obstruction is not excluded. Further clinical follow-up is suggested. No appreciable free intraperitoneal air. Lung bases are grossly clear. Bony structures are intact. BONES: Intact. OTHER FINDINGS: None. IMPRESSION: Diffuse dilated small bowel but some additional probable air within the colon. Finding probably reflects postoperative ileus although partial small bowel obstruction is not excluded. Further clinical follow-up is suggested. Study was placed in the PA review folder.
--- NOTE | 2017-12-28 09:30 | CP.PCM.PN ---
Subjective - Date & Time of Evaluation Date of Evaluation: 12/28/17 Time of Evaluation: 09:23 - Subjective Subjective: SURGERY NOTE FOR DR. MURRAY 87M seen and examined at bedside. Patient was straight cath'd yesterday after failed voided trial, 300cc output. States he is passing flatus but no bowel movement yet. Tolerating liquid diet but no having enough input. Denies pain, nausea, or vomiting. Objective - Vital Signs/Intake and Output Vital Signs (last 24 hours): Temp Pulse Resp BP Pulse Ox 98.1 F 90 19 116/86 89 L 12/28/17 08:00 12/28/17 08:36 12/28/17 08:00 12/28/17 08:36 12/28/17 08:00 Intake and Output: 12/28/17 12/28/17 06:59 18:59 Intake Total 320 50 Output Total 350 Balance -30 50 - Medications Medications: Current Medications Acetaminophen (Tylenol 325mg Tab) 650 mg PO Q6 PRN PRN Reason: Fever >100.4 F Acetylcysteine (Mucomyst 10% 4ml) 2 ml IH RBID TERRY Albuterol Sulfate (Albuterol 0.083% Inhal [place] (2.5 Mg/3 Ml) Ud) 2.5 mg INH RQ4 PRN PRN Reason: Shortness of Breath Dextrose (Dextrose 50% Inj) 0 ml IVP STAT PRN; Protocol PRN Reason: Hypoglycemia Protocol Finasteride (Proscar) 5 mg PO QPM [facility] Last Admin: 12/27/17 17:51 Dose: 5 mg Glucagon (Glucagen Diagnostic Kit) 0 mg IM STAT PRN; Protocol PRN Reason: Hypoglycemia Protocol Heparin Sodium (Porcine) (Heparin) 5,000 units SC Q8 TERRY PRN Reason: Protocol Last Admin: 12/28/17 00:08 Dose: 5,000 units Hydromorphone HCl (Dilaudid) 0.25 mg IVP Q4 PRN PRN Reason: Pain, severe (8-10) Last Admin: 12/26/17 17:17 Dose: 0.25 mg Cefazolin Sodium 1 gm/ (Dextrose) 100 mls @ 100 mls/hr IVPB Q12 TERRY PRN Reason: Protocol Last Admin: 12/28/17 08:37 Dose: 100 mls/hr Metronidazole (Flagyl 500mg/100ml Ns) 100 mls @ 100 mls/hr IVPB Q8 TERRY PRN Reason: Protocol Last Admin: 12/28/17 08:38 Dose: 100 mls/hr Sodium Chloride (Sodium Chloride 0.9%) 1,000 mls @ 80 mls/hr IV .[id number] [facility] Stop: 12/29/17 08:35 Levothyroxine Sodium (Synthroid) 75 mcg PO DAILY@0630 [facility] Last Admin: 12/28/17 05:40 Dose: 75 mcg Metoclopramide HCl (Reglan) 5 mg PO BID [facility] Last Admin: 12/28/17 08:36 Dose: 5 mg Metoprolol Succinate (Toprol Xl) 25 mg PO DAILY [facility] Last Admin: 12/28/17 08:36 Dose: 25 mg Ondansetron HCl (Zofran Inj) 4 mg IVP Q6 PRN PRN Reason: Nausea/Vomiting Last Admin: 12/28/17 04:20 Dose: 4 mg Pantoprazole Sodium (Protonix Inj) 40 mg IVP DAILY [facility] Last Admin: 12/28/17 08:39 Dose: 40 mg Tamsulosin HCl (Flomax) 0.4 mg PO QPM [facility] Last Admin: 12/27/17 17:51 Dose: 0.4 mg - Labs Labs: 12/28/17 04:20 12/28/17 04:20 PT 11.6 Seconds (9.8-13.1) 12/25/17 18:27 INR 1.0 (0.9-1.2) 12/25/17 18:27 APTT 30.2 Seconds (25.6-37.1) 12/25/17 18:27 - Constitutional Appears: Well, Non-toxic, No Acute Distress - Respiratory Exam Respiratory Exam: Rales, NORMAL BREATHING PATTERN - Cardiovascular Exam Cardiovascular Exam: REGULAR RHYTHM, +S1, +S2 - GI/Abdominal Exam GI & Abdominal Exam: Soft. absent: Distended, Firm, Guarding, Rigid, Tenderness , Rebound Additional comments: incision CDI, griffin in place - Neurological Exam Neurological Exam: Alert, Awake, Oriented x3 - Psychiatric Exam Psychiatric exam: Normal Affect, Normal Mood - Skin Skin Exam: Dry, Intact, Normal Color, Warm Assessment and Plan - Assessment and Plan (Free Text) Assessment: 87M s/p ex-laparotomy, lysis of omental band, detorsion of small bowel mesentery POD3 Plan: - IVF, continue CLD - out of bed, ambulating - await bowel function - monitor urine output Further recs discuss with Dr Dinorah Silva, PGY2
--- NOTE | 2017-12-28 10:15 | RAD ---
HISTORY: wheezing COMPARISON: 12/26/2017 FINDINGS: LUNGS: There is possible mild new patchy alveolar density or volume loss at the right lung base when compared to the prior study. PLEURA: No significant pleural effusion identified, no pneumothorax apparent. CARDIOVASCULAR: Unchanged. OSSEOUS STRUCTURES: No significant abnormalities. VISUALIZED UPPER ABDOMEN: Normal. OTHER FINDINGS: None. IMPRESSION: Mild new patchy alveolar infiltrate or volume loss at the right lung base when compared to the prior study.
--- NOTE | 2017-12-28 12:28 | CP.PCM.CON ---
History of Present Illness - History of Present Illness History of Present Illness: I was asked to evaluate patient by Dr Kent. Patient is an 87 year ld male with PMH HTN, hypercholesterolemia, COPD chronic LV systolic dysfunction who presents with abdominal pain. He was found to have a bowel obstruction and went urgently to the ER. The patient has been managed in ICU developed dyspnea and wheezing. He had a period of SVT/PAF. He is currently comfortable in bed. He denies chest pain. Review of Systems - Constitutional Constitutional: absent: As Per HPI, Anorexia, Chills, Daytime Sleepiness, Excessive Sweating, Fatigue, Fever, Frequent Falls, Headache, Increased Appetite , Lethargy, Malaise, Night Sweats, Snoring, Sleep Apnea, Weight Gain, Weight Loss, Weakness, Other - EENT Eyes: absent: As Per HPI, Blind Spots, Blurred Vision, Change in Vision, Decreased Night Vision, Diplopia, Discharge, Dry Eye, Exophthalmos, Floaters, Irritation, Itchy Eyes, Loss of Peripheral Vision, Pain, Photophobia, Requires Corrective Lenses, Sees Flashes, Spots in Vision, Tunnel Vision, Other Visual Disturbances, Loss of Vision, Other Ears: absent: As Per HPI, Decreased Hearing, Ear Discharge, Ear Pain, Tinnitus, Abnormal Hearing, Disequilibrium, Dizziness, Other Nose/Mouth/Throat: absent: As Per HPI, Epistaxis, Nasal Congestion, Nasal Discharge, Nasal Obstruction, Nasal Trauma, Nose Pain, Post Nasal Drip, Sinus Pain, Sinus Pressure, Bleeding Gums, Change in Voice, Dental Pain, Dry Mouth, Dysphagia, Halitosis, Hoarsness, Lip Swelling, Mouth Lesions, Mouth Pain, Odynophagia, Sore Throat, Throat Swelling, Tongue Swelling, Facial Pain, Neck Pain, Neck Mass, Other - Cardiovascular Cardiovascular: Irregular Heart Rhythm, Palpitations - Respiratory Respiratory: absent: As Per HPI, Cough, Dyspnea, Hemoptysis, Dyspnea on Exertion , Wheezing, Snoring, Stridor, Pain on Inspiration, Chest Congestion, Excessive Mucous Production, Change in Mucous Color, Pain with Coughing, Other - Gastrointestinal Gastrointestinal: absent: As Per HPI, Abdominal Pain, Belching, Bloating, Change in Bowel Habits, Change in Stool Character, Coffee Ground Emesis, Constipation, Cramping, Diarrhea, Dyspepsia, Dysphagia, Early Satiety, Excessive Flatus, Fecal Incontinence, Heartburn, Hematemesis, Hematochezia, Loose Stools, Melena, Nausea, Odynophagia, Temesmus, Vomiting, Other - Genitourinary Genitourinary: absent: As Per HPI, Change in Urinary Stream, Difficulty Urinating, Dysuria, Flank Pain, Hematuria, Pyuria, Nocturia, Urinary Incontinence, Urinary Frequency, Urinary Hesitance, Urinary Urgency, Voiding Freq/Small Amts, Freq UTI, Hx Renal/Bladder Calculi, Hx /Renal Surgery, Bladder Distension, Other - Musculoskeletal Musculoskeletal: absent: As Per HPI, Abnormal Gait, Arthralgias, Atrophy, Back Pain, Deformity, Joint Swelling, Limited Range of Motion, Loss of Height, Muscle Cramps, Muscle Weakness, Myalgias, Neck Pain, Numbness, Radiating Pain into Limb, Stiffness, Tingling, Other - Integumentary Integumentary: absent: As Per HPI, Acne, Alopecia, Bleeding Lesions, Change in Hair, Change in Nails, Change in Pigmentation, Changing Lesions, Dry Skin, Erythema, Furuncle, Hirsutism, Lesions, New Lesions, Non-Healing Lesions, Photosensitivity, Pruritus, Rash, Skin Pain, Skin Ulcer, Sores, Striae, Swelling , Unusual Bruising, Wounds, Jaundice, Other - Neurological Neurological: absent: As Per HPI, Abnormal Gait, Abnormal Hearing, Abnormal Movements, Abnormal Speech, Behavioral Changes, Burning Sensations, Confusion, Convulsions, Disequilibrium, Dizziness, Numbness, Focal Weakness, Frequent Falls , Headaches, Lack of Coordination, Loss of Vision, Memory Loss, Paresthesias, Radicular Pain, Restless Legs, Sensory Deficit, Syncope, Tingling, Tremor, Vertigo, Weakness, Other Visual Disturbances, Other - Psychiatric Psychiatric: absent: As Per HPI, Abnormal Sleep Pattern, Anhedonia, Anxiety, Auditory Hallucinations, Behavioral Changes, Change in Appetite, Change in Libido, Confusion, Depression, Difficulty Concentrating, Hallucinations, Homicidal Ideation, Hopelessness, Irritability, Memory Loss, Mood Swings, Panic Attacks, Paranoia, Suicidal Ideation, Visual Hallucinations, Tactile Hallucinations, Other - Endocrine Endocrine: absent: As Per HPI, Change in Body Appearance, Change in Libido, Cold Intolorance, Deepening of Voice, Excessive Sweating, Fatigue, Flushing, Heat Intolorance, Increase in Ring/Shoe/Hat Size, Palpitations, Polydipsia, Polyphagia, Polyuria, Other - Hematologic/Lymphatic Hematologic: absent: As Per HPI, Easy Bleeding, Easy Bruising, Lymphadenopathy, Other Past Patient History - Past Medical History & Family History Past Medical History?: Yes - Past Social History Smoking Status: Former Smoker - CARDIAC Hx Cardiac Disorders: Yes Hx Atrial Fibrillation: Yes Hx Hypertension: Yes (pt denies) - PULMONARY Hx Respiratory Disorders: No - NEUROLOGICAL Hx Neurological Disorder: No - HEENT Hx HEENT Problems: No - RENAL Hx Chronic Kidney Disease: Yes - ENDOCRINE/METABOLIC Hx Endocrine Disorders: Yes Hx Hypothyroidism: Yes - HEMATOLOGICAL/ONCOLOGICAL Hx Blood Disorders: No - INTEGUMENTARY Hx Dermatological Problems: No - MUSCULOSKELETAL/RHEUMATOLOGICAL Hx Musculoskeletal Disorders: No Hx Falls: No - GASTROINTESTINAL Hx Gastrointestinal Disorders: No - GENITOURINARY/GYNECOLOGICAL Hx Genitourinary Disorders: Yes Hx Prostate Problems: Yes Other/Comment: BPH - PSYCHIATRIC Hx Psychophysiologic Disorder: No - SURGICAL HISTORY Hx Surgeries: Yes Hx Cataract Extraction: Yes (Left eye) Hx Tonsillectomy: Yes Other/Comment: HX: PROSTATE BIOPSY. HX: CMG; CYSTO 10/23/16 - ANESTHESIA Hx Anesthesia: Yes Hx Anesthesia Reactions: No Hx Malignant Hyperthermia: No Meds Allergies/Adverse Reactions: Allergies Allergy/AdvReac Type Severity Reaction Status Date / Time No Known Allergies Allergy Verified 12/25/17 10:03 - Medications Medications: Current Medications Acetaminophen (Tylenol 325mg Tab) 650 mg PO Q6 PRN PRN Reason: Fever >100.4 F Acetylcysteine (Mucomyst 10% 4ml) 2 ml IH RBID TERRY Albuterol Sulfate (Albuterol 0.083% Inhal [place] (2.5 Mg/3 Ml) Ud) 2.5 mg INH RQ4 PRN PRN Reason: Shortness of Breath Dextrose (Dextrose 50% Inj) 0 ml IVP STAT PRN; Protocol PRN Reason: Hypoglycemia Protocol Finasteride (Proscar) 5 mg PO QPM [facility] Last Admin: 12/27/17 17:51 Dose: 5 mg Glucagon (Glucagen Diagnostic Kit) 0 mg IM STAT PRN; Protocol PRN Reason: Hypoglycemia Protocol Heparin Sodium (Porcine) (Heparin) 5,000 units SC Q8 TERRY PRN Reason: Protocol Last Admin: 12/28/17 09:49 Dose: 5,000 units Hydromorphone HCl (Dilaudid) 0.25 mg IVP Q4 PRN PRN Reason: Pain, severe (8-10) Last Admin: 12/26/17 17:17 Dose: 0.25 mg Cefazolin Sodium 1 gm/ (Dextrose) 100 mls @ 100 mls/hr IVPB Q12 TERRY PRN Reason: Protocol Last Admin: 12/28/17 08:37 Dose: 100 mls/hr Metronidazole (Flagyl 500mg/100ml Ns) 100 mls @ 100 mls/hr IVPB Q8 TERRY PRN Reason: Protocol Last Admin: 12/28/17 08:38 Dose: 100 mls/hr Sodium Chloride (Sodium Chloride 0.9%) 1,000 mls @ 80 mls/hr IV .[id number] [facility] Stop: 12/29/17 08:35 Levothyroxine Sodium (Synthroid) 75 mcg PO DAILY@0630 [facility] Last Admin: 12/28/17 05:40 Dose: 75 mcg Metoclopramide HCl (Reglan) 5 mg PO BID [facility] Last Admin: 12/28/17 08:36 Dose: 5 mg Metoprolol Succinate (Toprol Xl) 25 mg PO DAILY [facility] Last Admin: 12/28/17 08:36 Dose: 25 mg Ondansetron HCl (Zofran Inj) 4 mg IVP Q6 PRN PRN Reason: Nausea/Vomiting Last Admin: 12/28/17 04:20 Dose: 4 mg Pantoprazole Sodium (Protonix Inj) 40 mg IVP DAILY [facility] Last Admin: 12/28/17 08:39 Dose: 40 mg Tamsulosin HCl (Flomax) 0.4 mg PO QPM [facility] Last Admin: 12/27/17 17:51 Dose: 0.4 mg Physical Exam - Constitutional Appears: Chronically Ill - Head Exam Head Exam: NORMAL INSPECTION - Eye Exam Eye Exam: Normal appearance - ENT Exam ENT Exam: Mucous Membranes Moist - Neck Exam Neck exam: Positive for: Full Rom - Respiratory Exam Respiratory Exam: Decreased Breath Sounds - Cardiovascular Exam Cardiovascular Exam: REGULAR RHYTHM - GI/Abdominal Exam GI & Abdominal Exam: Normal Bowel Sounds - Rectal Exam Rectal Exam: Deferred - Extremities Exam Extremities exam: Negative for: pedal edema - Back Exam Back exam: NORMAL INSPECTION - Neurological Exam Neurological exam: Alert, Oriented x3 - Psychiatric Exam Psychiatric exam: Normal Affect - Skin Skin Exam: Normal Color Results - Vital Signs Recent Vital Signs: Last Vital Signs Temp 98.1 F 12/28/17 12:00 Pulse 84 12/28/17 12:00 Resp 21 12/28/17 12:00 BP 113/79 12/28/17 12:00 Pulse Ox 96 12/28/17 12:00 - Labs Result Diagrams: 12/28/17 04:20 12/28/17 04:20 Labs: Laboratory Results - last 24 hr 12/28/17 12/28/17 04:20 04:20 WBC 12.3 H RBC 3.82 L Hgb 12.5 Hct 37.5 MCV 98.2 H MCH 32.7 H MCHC 33.3 RDW 12.8 Plt Count 134 MPV 9.9 Neut % (Auto) 84.6 H Lymph % (Auto) 4.0 L [place] % (Auto) 11.1 H Eos % (Auto) 0.1 Baso % (Auto) 0.2 Neut # (Auto) 10.4 H Lymph # (Auto) 0.5 L [place] # (Auto) 1.4 H Eos # (Auto) 0.0 Baso # (Auto) 0.0 Sodium 139 Potassium 3.8 Chloride 100 Carbon Dioxide 28 Anion Gap 15 BUN 37 H Creatinine 1.5 Est GFR ( Amer) 54 Est GFR (Non-Af Amer) 44 Random Glucose 127 H Calcium 8.7 Total Bilirubin 0.5 AST 38 ALT 46 Alkaline Phosphatase 39 Total Protein 5.6 L Albumin 2.8 L Globulin 2.8 Albumin/Globulin Ratio 1.0 - EKG Data EKG Interpreted by: Myself EKG shows normal: Sinus rhythm Assessment & Plan (1) Left ventricular systolic dysfunction, chronic Assessment and Plan: will need to repeat echocardiogram. Echo form 2016 reveals severe LV dysfunction. If persistent LV dysfunction patient would be a candidate for AICD. He may not be optimal candidate for AICD at this time givne recent bowel surgery. He may need Lifevest untill recovery of bowel function. I will reeval after echo. continue betablocker. Status: Acute (2) HTN (hypertension) Status: Acute
--- NOTE | 2017-12-28 14:37 | CP.PCM.CON ---
History of Present Illness - History of Present Illness History of Present Illness: pt is a 87 YOM with h/o prox afib and HTN, was admitted on 12/25 with abdominal pain and had SBO, undewent laparotomy which was uneventful, pt was extuabted same day, he was admitted to tele but physically in ICU due to unavailability of tele bed. He has been stable but this morning had an episode of SOB, with tachypnea and wheezing and was in afib for short period of time . As patient was physically in ICU , I examine the patient, had ronchi bilaterally but no crackles, no pain , no fever. He was given nebulizor and steroids and after an hour he became asymptomatic and now back in SR. He was seen by sexologist Dr Jensen. No clinical signs of PE as pt improved. Review of Systems - Review of Systems Systems not reviewed;Unavailable: Respiratory Distress - Constitutional Constitutional: As Per HPI - EENT Eyes: As Per HPI - Cardiovascular Cardiovascular: As Per HPI - Respiratory Respiratory: Dyspnea - Gastrointestinal Gastrointestinal: As Per HPI - Genitourinary Genitourinary: As Per HPI Past Patient History - Past Medical History & Family History Past Medical History?: Yes - Past Social History Smoking Status: Former Smoker - CARDIAC Hx Cardiac Disorders: Yes Hx Atrial Fibrillation: Yes Hx Hypertension: Yes (pt denies) - PULMONARY Hx Respiratory Disorders: No - NEUROLOGICAL Hx Neurological Disorder: No - HEENT Hx HEENT Problems: No - RENAL Hx Chronic Kidney Disease: Yes - ENDOCRINE/METABOLIC Hx Endocrine Disorders: Yes Hx Hypothyroidism: Yes - HEMATOLOGICAL/ONCOLOGICAL Hx Blood Disorders: No - INTEGUMENTARY Hx Dermatological Problems: No - MUSCULOSKELETAL/RHEUMATOLOGICAL Hx Musculoskeletal Disorders: No Hx Falls: No - GASTROINTESTINAL Hx Gastrointestinal Disorders: No - GENITOURINARY/GYNECOLOGICAL Hx Genitourinary Disorders: Yes Hx Prostate Problems: Yes Other/Comment: BPH - PSYCHIATRIC Hx Psychophysiologic Disorder: No - SURGICAL HISTORY Hx Surgeries: Yes Hx Cataract Extraction: Yes (Left eye) Hx Tonsillectomy: Yes Other/Comment: HX: PROSTATE BIOPSY. HX: CMG; CYSTO 10/23/16 - ANESTHESIA Hx Anesthesia: Yes Hx Anesthesia Reactions: No Hx Malignant Hyperthermia: No Meds Allergies/Adverse Reactions: Allergies Allergy/AdvReac Type Severity Reaction Status Date / Time No Known Allergies Allergy Verified 12/25/17 10:03 - Medications Medications: Current Medications Acetaminophen (Tylenol 325mg Tab) 650 mg PO Q6 PRN PRN Reason: Fever >100.4 F Acetylcysteine (Mucomyst 10% 4ml) 2 ml IH RBID [facility] Albuterol Sulfate (Albuterol 0.083% Inhal [place] (2.5 Mg/3 Ml) Ud) 2.5 mg INH RQ4 PRN PRN Reason: Shortness of Breath Dextrose (Dextrose 50% Inj) 0 ml IVP STAT PRN; Protocol PRN Reason: Hypoglycemia Protocol Finasteride (Proscar) 5 mg PO QPM [facility] Last Admin: 12/27/17 17:51 Dose: 5 mg Glucagon (Glucagen Diagnostic Kit) 0 mg IM STAT PRN; Protocol PRN Reason: Hypoglycemia Protocol Heparin Sodium (Porcine) (Heparin) 5,000 units SC Q8 TERRY PRN Reason: Protocol Last Admin: 12/28/17 09:49 Dose: 5,000 units Hydromorphone HCl (Dilaudid) 0.25 mg IVP Q4 PRN PRN Reason: Pain, severe (8-10) Last Admin: 12/26/17 17:17 Dose: 0.25 mg Cefazolin Sodium 1 gm/ (Dextrose) 100 mls @ 100 mls/hr IVPB Q12 TERRY PRN Reason: Protocol Last Admin: 12/28/17 08:37 Dose: 100 mls/hr Metronidazole (Flagyl 500mg/100ml Ns) 100 mls @ 100 mls/hr IVPB Q8 [facility] PRN Reason: Protocol Last Admin: 12/28/17 08:38 Dose: 100 mls/hr Sodium Chloride (Sodium Chloride 0.9%) 1,000 mls @ 80 mls/hr IV .[id number] [facility] Stop: 12/29/17 08:35 Levothyroxine Sodium (Synthroid) 75 mcg PO DAILY@0630 [facility] Last Admin: 12/28/17 05:40 Dose: 75 mcg Metoclopramide HCl (Reglan) 5 mg PO BID [facility] Last Admin: 12/28/17 08:36 Dose: 5 mg Metoprolol Succinate (Toprol Xl) 25 mg PO DAILY [facility] Last Admin: 12/28/17 08:36 Dose: 25 mg Ondansetron HCl (Zofran Inj) 4 mg IVP Q6 PRN PRN Reason: Nausea/Vomiting Last Admin: 12/28/17 04:20 Dose: 4 mg Pantoprazole Sodium (Protonix Inj) 40 mg IVP DAILY [facility] Last Admin: 12/28/17 08:39 Dose: 40 mg Tamsulosin HCl (Flomax) 0.4 mg PO QPM [facility] Last Admin: 12/27/17 17:51 Dose: 0.4 mg Physical Exam - Head Exam Head Exam: ATRAUMATIC - Eye Exam Pupil Exam: NORMAL ACCOMODATION - Neck Exam Neck exam: Positive for: Full Rom - Respiratory Exam Respiratory Exam: Rhonchi, Wheezes - Cardiovascular Exam Cardiovascular Exam: Tachycardia - GI/Abdominal Exam GI & Abdominal Exam: Soft Results - Vital Signs Recent Vital Signs: Last Vital Signs Temp 98.1 F 12/28/17 12:00 Pulse 84 12/28/17 12:00 Resp 21 12/28/17 12:00 BP 113/79 12/28/17 12:00 Pulse Ox 96 12/28/17 12:00 - Labs Result Diagrams: 12/28/17 04:20 12/28/17 04:20 Labs: Laboratory Results - last 24 hr 12/28/17 12/28/17 04:20 04:20 WBC 12.3 H RBC 3.82 L Hgb 12.5 Hct 37.5 MCV 98.2 H MCH 32.7 H MCHC 33.3 RDW 12.8 Plt Count 134 MPV 9.9 Neut % (Auto) 84.6 H Lymph % (Auto) 4.0 L [place] % (Auto) 11.1 H Eos % (Auto) 0.1 Baso % (Auto) 0.2 Neut # (Auto) 10.4 H Lymph # (Auto) 0.5 L [place] # (Auto) 1.4 H Eos # (Auto) 0.0 Baso # (Auto) 0.0 Sodium 139 Potassium 3.8 Chloride 100 Carbon Dioxide 28 Anion Gap 15 BUN 37 H Creatinine 1.5 Est GFR ( Amer) 54 Est GFR (Non-Af Amer) 44 Random Glucose 127 H Calcium 8.7 Total Bilirubin 0.5 AST 38 ALT 46 Alkaline Phosphatase 39 Total Protein 5.6 L Albumin 2.8 L Globulin 2.8 Albumin/Globulin Ratio 1.0 Assessment & Plan - Assessment and Plan (Free Text) Assessment: Pt had episode of bronchospasm and a fib, bronchspasm improved with bronchodilators/nebulizors and in SR now. Clinical findings not suggesting PE, although patient is po-op. He is aymptomatic now, . 1-Episode of bronchospams: acute: resolved 2-Prox a fib 3-Po-Op, s/p laparotomy for SMO Plan Pt is stable, does not need to transfer to ICU, will keep in tele and will stay in ICU till bed in tele available Continue current meds, reviewed CXR ordered and reviewed. Nebulizors and steroid given and also gave one dose of lasix 40 mg .
[2017-12-28] MEDS: Albuterol 0.083% Inhal Sol (2.5 mg/3 mL) UD INH PRN (19:12)
[2017-12-28] MEDS: Acetylcysteine 10% 4 ML IH SCH (19:12)
[2017-12-29] MEDS: metroNIDAZOLE 500mg/100ml NS 100 ML IVPB SCH ×3 (01:20→17:28)
[2017-12-29 05:24] LABS: HEMOGLOBIN 11.1 g/dL (12.0-18.0); MEAN CORPUSCULAR HEMOGLOBIN 33.1 pg (27.0-31.0); MEAN CORPUSCULAR HGB CONC 33.5 g/dL (33.0-37.0); RBC 3.34 Mil/uL (4.40-5.90); RED CELL DISTRIBUTION WIDTH 12.8 % (11.5-14.5)
[2017-12-29 05:32] LABS: ALB/GLOB RATIO 1.1 (1.0-2.1); ALBUMIN 2.6 g/dL (3.5-5.0); CALCIUM 8.4 mg/dL (8.4-10.2)
[2017-12-29] MEDS: Levothyroxine 75 MCG TAB PO SCH (06:25)
[2017-12-29] MEDS: Acetylcysteine 10% 4 ML IH SCH ×2 (08:28→19:25)
[2017-12-29] MEDS: Albuterol 0.083% Inhal Sol (2.5 mg/3 mL) UD INH PRN ×2 (08:29→19:25)
[2017-12-29] MEDS ORDERED: Sodium Chloride 3% for Inhalation 4 ML VIAL.NEB IH PRN (08:41)
--- NOTE | 2017-12-29 09:03 | PCM.OP ---
Operative Report - Operative Report Date of Surgery/Procedure: 12/25/17 Time of Surgery/Procedure: 21:00 Surgeon: Dr. Sen Copeland [employer] Associate: Dr. Hunter Anesthesia/Sedation: general/Dr. 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 2-Reduction of 360 degree rotation of mesenteric torsion. 3- Drain ascites. Brief History: This is an 87 year old man admitted through the ED with abdominal pain and CT scan evidence of closed lop obstruction. No previous abdominal surgery, however, had pelvis radiation for prostate cancer. Description of the Procedure: The patient was brought to the operating room and after induction of general endotracheal anesthesia he waas prepped and drapped in the usual sterile manner. A generous midline incision was made and the subcutaneous tissue and periotneum was enterd with electrocautery. Immediately approximately 1000 cc of ascites was drained from the abdomen. After careful and gentle exploration a closed loop was discoverd in the left upper quadrant with an omental band. This was lysed with electrocautery. the bowel was released and was viable. The bowel was run from the ligament of Treitz and approxiamtely at the distal end of the jejunum it was noticed that the mesentery was completely in torsion for 360 degrees. The torsion was gently reduced and the bowel was released. The remainder of the small bowel and colon was run and exmained. The bowel was deemed vialble throughout. The bowel was placed back into the abdomianl cavity and the facia was clsoed with continuous 1PDS. Greg were placed on the sklin and a clean dressing was applied. The patient tolerated the procedure, was awakened, extubated and brought to the recovery room in stable condition. Estimated Blood Loss: 20 cc Blood Replaced: 1000 cc crystalloids Sponge/Instrument Count: correct Complications: none Discharge & Condition: stable
--- NOTE | 2017-12-29 09:38 | CP.PCM.PN ---
Subjective - Date & Time of Evaluation Date of Evaluation: 12/29/17 Time of Evaluation: 07:00 - Subjective Subjective: Patient seen and examined this morning. Patient found to have SVTs yesterday. Seen by cardiology, at this time they are recommending echocardiogram and possible lifevest. Patient denies abdominal pain. Denies nausea/vomiting. Reports he is ambulating to bathroom. Objective - Vital Signs/Intake and Output Vital Signs (last 24 hours): Temp Pulse Resp BP Pulse Ox 98.8 F 61 25 H 99/57 L 97 12/29/17 04:00 12/29/17 06:00 12/29/17 06:00 12/29/17 06:00 12/29/17 06:00 Intake and Output: 12/29/17 12/29/17 06:59 18:59 Intake Total 0 Balance 0 - Medications Medications: Current Medications Acetaminophen (Tylenol 325mg Tab) 650 mg PO Q6 PRN PRN Reason: Fever >100.4 F Acetylcysteine (Mucomyst 10% 4ml) 2 ml IH RBID [facility] Last Admin: 12/29/17 08:28 Dose: 2 ml Albuterol Sulfate (Albuterol 0.083% Inhal Kaykay (2.5 Mg/3 Ml) Ud) 2.5 mg INH RQ4 PRN PRN Reason: Shortness of Breath Last Admin: 12/29/17 08:29 Dose: 2.5 mg Dextrose (Dextrose 50% Inj) 0 ml IVP STAT PRN; Protocol PRN Reason: Hypoglycemia Protocol Finasteride (Proscar) 5 mg PO QPM [facility] Last Admin: 12/28/17 18:06 Dose: 5 mg Glucagon (Glucagen Diagnostic Kit) 0 mg IM STAT PRN; Protocol PRN Reason: Hypoglycemia Protocol Heparin Sodium (Porcine) (Heparin) 5,000 units SC Q8 TERRY PRN Reason: Protocol Last Admin: 12/29/17 01:43 Dose: 5,000 units Cefazolin Sodium 1 gm/ (Dextrose) 100 mls @ 100 mls/hr IVPB Q12 TERRY PRN Reason: Protocol Last Admin: 12/28/17 21:30 Dose: 100 mls/hr Metronidazole (Flagyl 500mg/100ml Ns) 100 mls @ 100 mls/hr IVPB Q8 TERRY PRN Reason: Protocol Last Admin: 03/19/18 01:20 Dose: 100 mls/hr Levothyroxine Sodium (Synthroid) 75 mcg PO DAILY@0630 [facility] Last Admin: 12/29/17 06:25 Dose: 75 mcg Metoclopramide HCl (Reglan) 5 mg PO BID [facility] Last Admin: 12/28/17 18:07 Dose: 5 mg Metoprolol Succinate (Toprol Xl) 25 mg PO DAILY [facility] Last Admin: 12/28/17 08:36 Dose: 25 mg Ondansetron HCl (Zofran Inj) 4 mg IVP Q6 PRN PRN Reason: Nausea/Vomiting Last Admin: 12/28/17 04:20 Dose: 4 mg Pantoprazole Sodium (Protonix Inj) 40 mg IVP DAILY [facility] Last Admin: 12/28/17 08:39 Dose: 40 mg Tamsulosin HCl (Flomax) 0.4 mg PO QPM [facility] Last Admin: 12/28/17 18:05 Dose: 0.4 mg - Labs Labs: 12/29/17 04:20 12/29/17 04:20 PT 11.6 Seconds (9.8-13.1) 12/25/17 18:27 INR 1.0 (0.9-1.2) 12/25/17 18:27 APTT 30.2 Seconds (25.6-37.1) 12/25/17 18:27 - Constitutional Appears: No Acute Distress - Head Exam Head Exam: NORMOCEPHALIC - Eye Exam Eye Exam: EOMI, Normal appearance - ENT Exam ENT Exam: Mucous Membranes Moist - Respiratory Exam Respiratory Exam: NORMAL BREATHING PATTERN - Cardiovascular Exam Cardiovascular Exam: +S1, +S2 - GI/Abdominal Exam GI & Abdominal Exam: Soft - Neurological Exam Neurological Exam: Alert, Awake, Oriented x3 - Psychiatric Exam Psychiatric exam: Normal Mood - Skin Skin Exam: Normal Color, Warm Assessment and Plan - Assessment and Plan (Free Text) Assessment: 87M s/p ex-laparotomy, lysis of omental band, detorsion of small bowel mesentery POD4 Plan: - Regular diet -Encourage incentive spirometer use - Patient to be out of bed to chair -Encourage ambulation -PT - monitor urine output -Cardio recs appreciated -DVT ppx -Further recs per Dr. Dinorah Mcallister PGY2
[2017-12-29] MEDS: Metoprolol Succinate 25 mg XL Tab PO SCH (10:08)
--- NOTE | 2017-12-29 10:39 | CON ---
DATE: HISTORY OF PRESENT ILLNESS: Mr. Engel is an 87-year-old male who was referred for pulmonary evaluation by Dr. Kent. He was admitted with intestinal obstruction and status post surgical resection of the bowel. He is referred for pulmonary evaluation because of new onset pneumonia, right lung. He has been lying in bed for the past several days and has not moved around so much. Chest x-ray incidentally shows new pneumonia right lower lobe. PAST MEDICAL HISTORY: The patient has past medical history of hypertension, hyperlipidemia, chronic obstructive pulmonary disease, and questionable coronary artery disease. FAMILY HISTORY: Noncontributory. SOCIAL HISTORY: He used to smoke, quit several years ago. Does not use drugs. Does not use alcohol. 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 REVIEW OF SYSTEMS: Essentially unremarkable except for abdominal pain. PHYSICAL EXAMINATION: GENERAL: The patient is alert and oriented, appears to be comfortable at present, lying in bed. VITAL SIGNS: Blood pressure of 99/57 with the pulse of 61, respiratory rate of 20-25 per minute. He is afebrile. O2 sat is 97% on room air. SKIN: Shows fair turgor. HEENT: Pupils are equal and reactive to light and accommodation. Mouth shows fair hygiene. NECK: JVP flat. LUNGS: Fair aeration bilaterally with mild bilateral basal dullness and rales. HEART: S1 and S2. ABDOMEN: Soft and nontender. No organomegaly. There is a scar of abdominal surgery noted at the mid abdomen with surgical griffin in place. There are normoactive bowel sounds. EXTREMITIES: Show no edema or cyanosis. CENTRAL NERVOUS SYSTEM: Grossly intact. LABORATORY DATA: WBC 9.0, hemoglobin 11.1, and platelet count 125,000. Sodium of 137, potassium of 3.8, BUN of 43, and creatinine of 1.6. Arterial blood gas; pH of 7.35, pCO2 of 49, pO2 of 106, and O2 sat of 100%. Chest x-ray is remarkable for mild infiltrates of volume loss right lung at the base when compare to prior studies. IMPRESSION: New onset pneumonia, right base, probably secondary to aspiration. The patient was status post abdominal surgery. The patient also has history of mild chronic obstructive pulmonary disease and hypertension. PLAN: I encouraged the patient to get out of bed, bedside incentive spirometry, oxygen p.r.n., we will obtain sputum for Gram-stain and cultures as the patient is able to expectorate sputum. We will continue to follow with you. Further therapy will depend on findings. The patient is already on IV antibiotics. Rancho Cabral MD
--- NOTE | 2017-12-29 12:30 | CP.CCUPN ---
CCU Subjective - Physician Review Subjective (Free Text): 12/29/17 12:27 Today: Saturday, November 18, 2017 The patient was Seen/interviewed and examined by me at the bedside during ICU round, Medical records reviewed and Management issues were discussed and formulated with the house staff. Events reviewed Mr. Engel is 87 Years old Male with PMHx of proximal A-Fib and HTN, was admitted on 12/25 with abdominal pain and had SBO Underwent laparotomy which was uneventful, pt was extuabted same day, he was admitted to tele but physically in ICU due to unavailability of tele bed and has been stable. 12/28 morning had an episode of SOB, with tachypnea and wheezing and was in afib for short period of time. He was given nebulizor and steroids and after an hour he became asymptomatic and now back in SR. He was seen by pastor Dr Jensen. No clinical signs of PE as pt improved. BP has been stable, no fever, electrolytes are improving, also leukocytosis resolving. Sitting comfortable in chair using I Spirometry Echo done this morning Patient stable for transfer out of ICU to telemetry Pain controlled CCU Objective - Vital Signs / Intake & Output Vital Signs (Last 4 hours): Vital Signs Temp Pulse Resp BP Pulse Ox 12/29/17 12:00 98.3 F 83 25 H 113/58 L 93 L 12/29/17 10:08 82 100/54 L 12/29/17 10:00 78 14 100/54 L 100 Intake and Output (Last 8hrs): Intake & Output 12/28/17 12/29/17 12/29/17 22:59 06:59 14:59 Intake Total 0 320 Balance 0 320 Intake: IV 0 Oral 320 - Physical Exam Physical Exam Limitations: Positive for: Clinical Condition Head: Positive for: Atraumatic, Normocephalic Pupils: Positive for: PERRL Extroacular Muscles: Positive for: EOMI Conjunctiva: Positive for: Normal. Negative for: Injected Mouth: Positive for: Moist Mucous Membranes Nose (Internal): Positive for: Normal Inspection Neck: Positive for: Normal Range of Motion, Trachea Midline. Negative for: Meningeal Signs, MIDLINE TENDERNESS, Paraspinal Tenderness, JVD, Lymphadenopathy , Bruit, Other Respiratory/Chest: Positive for: Clear to Auscultation. Negative for: Respiratory Distress Cardiovascular: Positive for: Regular Rate and Rhythm, Normal S1, S2. Negative for: Murmurs Abdomen: Positive for: Distention, Normal Bowel Sounds. Negative for: Peritoneal Signs, Guarding Upper Extremity: Positive for: Normal Inspection, NORMAL PULSES. Negative for: Edema Lower Extremity: Positive for: Normal Inspection, NORMAL PULSES. Negative for: Edema, CALF TENDERNESS Neurological: Positive for: GCS=15, CN II-XII Intact - Medications Active Medications: Active Medications Generic Name Dose Route Start Last Admin Trade Name Freq PRN Reason Stop Dose Admin Acetaminophen 650 mg 12/26/17 17:02 Tylenol 325mg Tab PO Q6 PRN Fever >100.4 F Acetylcysteine 2 ml 12/28/17 20:00 12/29/17 08:28 Mucomyst 10% 4ml IH 2 ml RBID TERRY Administration Albuterol Sulfate 2.5 mg 12/28/17 08:35 12/29/17 08:29 Albuterol 0.083% Inhal Kaykay (2.5 Mg/3 Ml) Ud INH 2.5 mg RQ4 PRN Administration Shortness of Breath Dextrose 0 ml 12/26/17 10:28 Dextrose 50% Inj IVP STAT PRN Hypoglycemia Protocol Protocol Finasteride 5 mg 12/26/17 18:00 12/28/17 18:06 Proscar PO 5 mg QPM TERRY Administration Glucagon 0 mg 12/26/17 10:28 Glucagen Diagnostic Kit IM STAT PRN Hypoglycemia Protocol Protocol Heparin Sodium (Porcine) 5,000 units 12/26/17 01:00 12/29/17 10:06 Heparin SC 5,000 units Q8 TERRY Administration Protocol Cefazolin Sodium 1 gm/ 100 mls @ 100 mls/hr 12/27/17 21:00 12/29/17 10:04 Dextrose IVPB 100 mls/hr Q12 TERRY Administration Protocol Metronidazole 100 mls @ 100 mls/hr 12/27/17 17:00 12/29/17 10:06 Flagyl 500mg/100ml Ns IVPB 100 mls/hr Q8 TERRY Administration Protocol Levothyroxine Sodium 75 mcg 12/27/17 06:30 12/29/17 06:25 Synthroid PO 75 mcg DAILY@0630 TERRY Administration Metoclopramide HCl 5 mg 12/27/17 17:00 12/29/17 10:07 Reglan PO 5 mg BID TERRY Administration Metoprolol Succinate 25 mg 12/27/17 09:00 12/29/17 10:08 Toprol Xl PO 25 mg DAILY TERRY Administration Ondansetron HCl 4 mg 12/25/17 21:33 12/28/17 04:20 Zofran Inj IVP 4 mg Q6 PRN Administration Nausea/Vomiting Pantoprazole Sodium 40 mg 12/26/17 09:00 12/29/17 10:07 Protonix Inj IVP 40 mg DAILY TERRY Administration Tamsulosin HCl 0.4 mg 12/26/17 18:00 12/28/17 18:05 Flomax PO 0.4 mg QPM TERRY Administration - Patient Studies Lab Studies: Lab Studies 12/29/17 12/29/17 Range/Units 04:20 04:20 WBC 9.0 (4.8-10.8) K/uL RBC 3.34 L (4.40-5.90) Mil/uL Hgb 11.1 L (12.0-18.0) g/dL Hct 33.1 L (35.0-51.0) % MCV 99.0 H (80.0-94.0) fl MCH 33.1 H (27.0-31.0) pg MCHC 33.5 (33.0-37.0) g/dL RDW 12.8 (11.5-14.5) % Plt Count 125 L (130-400) K/uL Sodium 137 (132-148) mmol/l Potassium 3.8 (3.6-5.0) MMOL/L Chloride 101 (98-107) mmol/L Carbon Dioxide 27 (22-30) mmol/L Anion Gap 13 (10-20) BUN 43 H (9-20) mg/dl Creatinine 1.6 H (0.8-1.5) mg/dl Est GFR ( Amer) 50 Est GFR (Non-Af Amer) 41 Random Glucose 156 H (75-110) mg/dL Calcium 8.4 (8.4-10.2) mg/dL Total Bilirubin 0.4 (0.2-1.3) mg/dl AST 23 (17-59) U/L ALT 40 (21-72) U/L Alkaline Phosphatase 32 L (38-126) U/L Total Protein 5.0 L (6.3-8.2) G/DL Albumin 2.6 L (3.5-5.0) g/dL Globulin 2.4 (2.2-3.9) gm/dL Albumin/Globulin Ratio 1.1 (1.0-2.1) Laboratory Results - last 24 hr 12/29/17 12/29/17 04:20 04:20 WBC 9.0 RBC 3.34 L Hgb 11.1 L Hct 33.1 L MCV 99.0 H MCH 33.1 H MCHC 33.5 RDW 12.8 Plt Count 125 L Sodium 137 Potassium 3.8 Chloride 101 Carbon Dioxide 27 Anion Gap 13 BUN 43 H Creatinine 1.6 H Est GFR ( Amer) 50 Est GFR (Non-Af Amer) 41 Random Glucose 156 H Calcium 8.4 Total Bilirubin 0.4 AST 23 ALT 40 Alkaline Phosphatase 32 L Total Protein 5.0 L Albumin 2.6 L Globulin 2.4 Albumin/Globulin Ratio 1.1 Fingerstick Blood Sugar Results: 101 Review of Systems - Cardiovascular Cardiovascular: absent: As Per HPI, Acrocyanosis, Chest Pain, Chest Pain at Rest , Chest Pain with Activity, Claudication, Diaphoresis, Dyspnea, Dyspnea on Exertion, Edema, Irregular Heart Rhythm, Pain Radiating to Arm/Neck/Jaw, Leg Edema, Leg Ulcers, Lightheadedness, Orthopnea, Palpitations, Paroxysmal Nocturnal Dyspnea, Pedal Edema, Radiating Pain, Rapid Heart Rate, Slow Heart Rate, Syncope, Other, UNREMARKABLE - Respiratory Respiratory: absent: As Per HPI, Cough, Dyspnea, Hemoptysis, Dyspnea on Exertion , Wheezing, Snoring, Stridor, Pain on Inspiration, Chest Congestion, Excessive Mucous Production, Change in Mucous Color, Pain with Coughing, Other, UNREMARKABLE Critical Care Progress Note - Extremities/Vascular Does the Patient have a Central Venous Catheter?: No Does the Patient need a Central Venous Catheter?: No Does the Patient have a [place] Catheter?: No Does the Patient need a [place] Catheter?: No - Nutrition Nutrition: Nutrition Category Date Time Status Regular Diet [DIET] Diets 12/27/17 Lunch Active Assessment/Plan (1) Intestinal obstruction Current Visit: Yes Status: Acute Comment: S/p Exploratomy laparotomy, lysis of omental band, reduction of mesenteric torsion Clinically improving Out of bed to chair Incentive spirometer PT (2) Asthma attack Current Visit: Yes Status: Acute Comment: Patient received nebulizor and steroids and after an hour he became asymptomatic (3) Left ventricular systolic dysfunction, chronic Current Visit: Yes Status: Acute Comment: Repeat Echo done this gayatrig, the most recent form 2016 shows severe LV dysfunction. Pt dwill need Lifevest untill recovery of bowel function as per cardiology Toprol Xl 25 mg PO DAILY (4) Pneumonia Current Visit: Yes Status: Acute Comment: Continue current meds, Antibiotics Pulmonary consult Sputum collection (5) HTN (hypertension) Current Visit: Yes Status: Acute Comment: Toprol Xl 25 mg PO DAILY
--- NOTE | 2017-12-29 16:33 | CARD ---
APPROVED REPORT EXAM: Two-dimensional and M-mode echocardiogram with Doppler and color Doppler. Other Information Quality : PoorRhythm : NSR Technically limited study due to No Echo Window. INDICATION Abnormal EKG/Arrhythmia Mitral Valve E/A ratio0.0 TDI E/Lateral E'0.0E/Medial E'0.0 LEFT VENTRICLE The left ventricle is normal to mildly dilated in size. There is normal left ventricular wall thickness. The left ventricle is not seen well enough to assess its function. The anterior wall appears to have good contraction but the other segments of the LV are not seen well enough to comment on. Pulsed mitral flow studies were not performed. too poor study to comment on too poor study to comment on too poor study to comment on. too poor study to comment on RIGHT VENTRICLE The right ventricle appears enlarged on the 2D study. There is normal right ventricular wall thickness. too poor study to assess well ATRIA The left atrium size is normal. The right atrium size is normal. The interatrial septum is intact with no evidence for an atrial septal defect. AORTIC VALVE The aortic valve is normal in structure. No aortic regurgitation is present. There is no aortic valvular stenosis. MITRAL VALVE The mitral valve is normal in structure. There is no evidence of mitral valve prolapse. There is no mitral valve stenosis. There is no mitral valve regurgitation noted. TRICUSPID VALVE The tricuspid valve is not well visualized. There is no tricuspid valve regurgitation noted. not seen well not seen well PULMONIC VALVE not visualized doppler studies of the PV were not performed GREAT VESSELS The aortic root is normal in size. The IVC was not visualized. PERICARDIAL EFFUSION The pericardium appears normal. There is no pleural effusion. <Conclusion> The study is of poor quality as a good echo window could not be obtained. The left ventricle is normal to mildly dilated in size. There is normal left ventricular wall thickness. The left ventricle is not seen well enough to assess its function. The right ventricle appears dilated. The aortic and mitral valves appear normal. Consider a mugascan if a LVEF is needed clinically.
--- NOTE | 2017-12-29 19:05 | CP.PCM.PN ---
Subjective - Date & Time of Evaluation Date of Evaluation: 12/29/17 Time of Evaluation: 18:55 - Subjective Subjective: no new complaints. Objective - Vital Signs/Intake and Output Vital Signs (last 24 hours): Temp Pulse Resp BP Pulse Ox 98.5 F 83 14 117/70 93 L 12/29/17 16:00 12/29/17 17:45 12/29/17 17:45 12/29/17 17:45 12/29/17 17:45 Intake and Output: 12/29/17 12/29/17 06:59 18:59 Intake Total 0 320 Balance 0 320 - Medications Medications: Current Medications Acetaminophen (Tylenol 325mg Tab) 650 mg PO Q6 PRN PRN Reason: Fever >100.4 F Acetylcysteine (Mucomyst 10% 4ml) 2 ml IH RBID REPLACED BY [facility] Last Admin: 12/29/17 08:28 Dose: 2 ml Albuterol Sulfate (Albuterol 0.083% Inhal Kaykay (2.5 Mg/3 Ml) Ud) 2.5 mg INH RQ4 PRN PRN Reason: Shortness of Breath Last Admin: 12/29/17 08:29 Dose: 2.5 mg Dextrose (Dextrose 50% Inj) 0 ml IVP STAT PRN; Protocol PRN Reason: Hypoglycemia Protocol Finasteride (Proscar) 5 mg PO QPM [facility]PL[facility] Last Admin: 12/29/17 17:31 Dose: 5 mg Glucagon (Glucagen Diagnostic Kit) 0 mg IM STAT PRN; Protocol PRN Reason: Hypoglycemia Protocol Heparin Sodium (Porcine) (Heparin) 5,000 units SC Q8 TERRY PRN Reason: Protocol Last Admin: 12/29/17 17:29 Dose: 5,000 units Cefazolin Sodium 1 gm/ (Dextrose) 100 mls @ 100 mls/hr IVPB Q12 TERRY PRN Reason: Protocol Last Admin: 12/29/17 10:04 Dose: 100 mls/hr Metronidazole (Flagyl 500mg/100ml Ns) 100 mls @ 100 mls/hr IVPB Q8 TERRY PRN Reason: Protocol Last Admin: 12/29/17 17:28 Dose: 100 mls/hr Levothyroxine Sodium (Synthroid) 75 mcg PO DAILY@0630 [facility]PL[facility] Last Admin: 12/29/17 06:25 Dose: 75 mcg Metoclopramide HCl (Reglan) 5 mg PO BID [facility]PL[facility] BY [facility] Last Admin: 03/19/18 17:30 Dose: 5 mg Metoprolol Succinate (Toprol Xl) 25 mg PO DAILY REPLACED BY [facility] Last Admin: 12/29/17 10:08 Dose: 25 mg Ondansetron HCl (Zofran Inj) 4 mg IVP Q6 PRN PRN Reason: Nausea/Vomiting Last Admin: 12/28/17 04:20 Dose: 4 mg Pantoprazole Sodium (Protonix Inj) 40 mg IVP DAILY REPLACED BY [facility] Last Admin: 12/29/17 10:07 Dose: 40 mg Tamsulosin HCl (Flomax) 0.4 mg PO QPM REPLACED BY [facility] Last Admin: 12/29/17 17:31 Dose: 0.4 mg - Labs Labs: 12/29/17 04:20 12/29/17 04:20 PT 11.6 Seconds (9.8-13.1) 12/25/17 18:27 INR 1.0 (0.9-1.2) 12/25/17 18:27 APTT 30.2 Seconds (25.6-37.1) 12/25/17 18:27 - Constitutional Appears: Non-toxic - Head Exam Head Exam: NORMAL INSPECTION - Eye Exam Eye Exam: Normal appearance - ENT Exam ENT Exam: Mucous Membranes Moist - Neck Exam Neck Exam: Normal Inspection - Respiratory Exam Respiratory Exam: NORMAL BREATHING PATTERN - Cardiovascular Exam Cardiovascular Exam: REGULAR RHYTHM - GI/Abdominal Exam GI & Abdominal Exam: Normal Bowel Sounds - Rectal Exam Rectal Exam: Deferred - Extremities Exam Extremities Exam: absent: Pedal Edema - Back Exam Back Exam: NORMAL INSPECTION - Neurological Exam Neurological Exam: Alert - Psychiatric Exam Psychiatric exam: Normal Affect - Skin Skin Exam: Normal Color Assessment and Plan (1) Left ventricular systolic dysfunction, chronic Assessment & Plan: The echocardiogram is of poor quality. There does not appear to be severe LV dysfunction by echocardiogram. I will continue with current medical therapy no indication for AICD at this time. Status: Acute (2) HTN (hypertension) Status: Acute
--- NOTE | 2017-12-29 23:57 | CP.PCM.PN ---
Subjective - Date & Time of Evaluation Date of Evaluation: 12/29/17 Time of Evaluation: 11:20 - Subjective Subjective: Patient feels better Has no wheezing Has not had any bm yet Objective - Vital Signs/Intake and Output Vital Signs (last 24 hours): Temp Pulse Resp BP Pulse Ox 99.0 F 84 18 106/65 93 L 12/29/17 21:05 12/29/17 21:05 12/29/17 21:05 12/29/17 21:05 12/29/17 21:05 Intake and Output: 12/29/17 12/30/17 18:59 06:59 Intake Total 320 Balance 320 - Medications Medications: Current Medications Acetaminophen (Tylenol 325mg Tab) 650 mg PO Q6 PRN PRN Reason: Fever >100.4 F Acetylcysteine (Mucomyst 10% 4ml) 2 ml IH RBID [facility] Last Admin: 12/29/17 19:25 Dose: 2 ml Albuterol Sulfate (Albuterol 0.083% Inhal Kaykay (2.5 Mg/3 Ml) Ud) 2.5 mg INH RQ4 PRN PRN Reason: Shortness of Breath Last Admin: 12/29/17 19:25 Dose: 2.5 mg Dextrose (Dextrose 50% Inj) 0 ml IVP STAT PRN; Protocol PRN Reason: Hypoglycemia Protocol Finasteride (Proscar) 5 mg PO QPM [facility] Last Admin: 12/29/17 17:31 Dose: 5 mg Glucagon (Glucagen Diagnostic Kit) 0 mg IM STAT PRN; Protocol PRN Reason: Hypoglycemia Protocol Heparin Sodium (Porcine) (Heparin) 5,000 units SC Q8 TERRY PRN Reason: Protocol Last Admin: 12/29/17 17:29 Dose: 5,000 units Cefazolin Sodium 1 gm/ (Dextrose) 100 mls @ 100 mls/hr IVPB Q12 TERRY PRN Reason: Protocol Last Admin: 12/29/17 21:27 Dose: 100 mls/hr Metronidazole (Flagyl 500mg/100ml Ns) 100 mls @ 100 mls/hr IVPB Q8 TERRY PRN Reason: Protocol Last Admin: 12/29/17 17:28 Dose: 100 mls/hr Levothyroxine Sodium (Synthroid) 75 mcg PO DAILY@0630 [facility] Last Admin: 12/29/17 06:25 Dose: 75 mcg Metoclopramide HCl (Reglan) 5 mg PO BID [facility] Last Admin: 12/29/17 17:30 Dose: 5 mg Metoprolol Succinate (Toprol Xl) 25 mg PO DAILY [facility] Last Admin: 12/29/17 10:08 Dose: 25 mg Ondansetron HCl (Zofran Inj) 4 mg IVP Q6 PRN PRN Reason: Nausea/Vomiting Last Admin: 12/28/17 04:20 Dose: 4 mg Pantoprazole Sodium (Protonix Inj) 40 mg IVP DAILY [facility] Last Admin: 12/29/17 10:07 Dose: 40 mg Tamsulosin HCl (Flomax) 0.4 mg PO QPM [facility] Last Admin: 12/29/17 17:31 Dose: 0.4 mg - Labs Labs: 12/29/17 04:20 12/29/17 04:20 PT 11.6 Seconds (9.8-13.1) 12/25/17 18:27 INR 1.0 (0.9-1.2) 12/25/17 18:27 APTT 30.2 Seconds (25.6-37.1) 12/25/17 18:27 Assessment and Plan (1) Intestinal obstruction Status: Acute (2) Hypothyroidism Status: Acute (3) HTN (hypertension) Status: Acute (4) Asthma attack Status: Acute (5) Pneumonia Status: Acute
[2017-12-30] MEDS: metroNIDAZOLE 500mg/100ml NS 100 ML IVPB SCH ×2 (00:06→08:18)
[2017-12-30] MEDS: Levothyroxine 75 MCG TAB PO SCH (06:49)
[2017-12-30] MEDS: Albuterol 0.083% Inhal Sol (2.5 mg/3 mL) UD INH PRN (07:29)
[2017-12-30] MEDS: Acetylcysteine 10% 4 ML IH SCH (07:29)
--- NOTE | 2017-12-30 07:52 | CP.PCM.PN ---
Subjective - Date & Time of Evaluation Date of Evaluation: 12/30/17 Time of Evaluation: 07:50 - Subjective Subjective: SURGERY NOTE FOR DR. COPELAND Patient seen and examined this morning. Patient is out of ICU. Patient denies abdominal pain. Reports that he had bowel movements. Denies of F/N/V/C/SOB/CP/ headache. Reports he has been ambulating. No new complains. Objective - Vital Signs/Intake and Output Vital Signs (last 24 hours): Temp Pulse Resp BP Pulse Ox 98.3 F 71 20 103/60 97 12/30/17 05:00 12/30/17 05:00 12/30/17 05:00 12/30/17 05:00 12/30/17 05:00 - Medications Medications: Current Medications Acetaminophen (Tylenol 325mg Tab) 650 mg PO Q6 PRN PRN Reason: Fever >100.4 F Acetylcysteine (Mucomyst 10% 4ml) 2 ml IH RBID [facility]END[facility] TO [facility] Last Admin: 12/30/17 07:29 Dose: 2 ml Albuterol Sulfate (Albuterol 0.083% Inhal Kaykay (2.5 Mg/3 Ml) Ud) 2.5 mg INH RQ4 PRN PRN Reason: Shortness of Breath Last Admin: 12/30/17 07:29 Dose: 2.5 mg Dextrose (Dextrose 50% Inj) 0 ml IVP STAT PRN; Protocol PRN Reason: Hypoglycemia Protocol Finasteride (Proscar) 5 mg PO QPM [facility] Last Admin: 12/29/17 17:31 Dose: 5 mg Glucagon (Glucagen Diagnostic Kit) 0 mg IM STAT PRN; Protocol PRN Reason: Hypoglycemia Protocol Heparin Sodium (Porcine) (Heparin) 5,000 units SC Q8 [facility] PRN Reason: Protocol Last Admin: 12/30/17 00:05 Dose: 5,000 units Cefazolin Sodium 1 gm/ (Dextrose) 100 mls @ 100 mls/hr IVPB Q12 [facility] PRN Reason: Protocol Last Admin: 12/29/17 21:27 Dose: 100 mls/hr Metronidazole (Flagyl 500mg/100ml Ns) 100 mls @ 100 mls/hr IVPB Q8 [facility] PRN Reason: Protocol Last Admin: 12/30/17 00:06 Dose: 100 mls/hr Levothyroxine Sodium (Synthroid) 75 mcg PO DAILY@0630 [facility] Last Admin: 12/30/17 06:49 Dose: 75 mcg Metoclopramide HCl (Reglan) 5 mg PO BID [facility] Last Admin: 12/29/17 17:30 Dose: 5 mg Metoprolol Succinate (Toprol Xl) 25 mg PO DAILY [facility] Last Admin: 12/29/17 10:08 Dose: 25 mg Ondansetron HCl (Zofran Inj) 4 mg IVP Q6 PRN PRN Reason: Nausea/Vomiting Last Admin: 12/28/17 04:20 Dose: 4 mg Pantoprazole Sodium (Protonix Inj) 40 mg IVP DAILY [facility] Last Admin: 12/29/17 10:07 Dose: 40 mg Tamsulosin HCl (Flomax) 0.4 mg PO QPM [facility] Last Admin: 12/29/17 17:31 Dose: 0.4 mg - Labs Labs: 12/29/17 04:20 12/29/17 04:20 PT 11.6 Seconds (9.8-13.1) 12/25/17 18:27 INR 1.0 (0.9-1.2) 12/25/17 18:27 APTT 30.2 Seconds (25.6-37.1) 12/25/17 18:27 - Constitutional Appears: Well, Non-toxic, No Acute Distress - Head Exam Head Exam: ATRAUMATIC - Eye Exam Eye Exam: Normal appearance - ENT Exam ENT Exam: Normal Exam - Neck Exam Neck Exam: Normal Inspection - Respiratory Exam Respiratory Exam: NORMAL BREATHING PATTERN - GI/Abdominal Exam GI & Abdominal Exam: Soft. absent: Rigid, Hernia, Mass - Rectal Exam Rectal Exam: Deferred - Extremities Exam Extremities Exam: Normal Inspection - Neurological Exam Neurological Exam: Alert, Awake, Oriented x3 - Psychiatric Exam Psychiatric exam: Normal Affect, Normal Mood - Skin Skin Exam: Intact, Normal Color, Warm Assessment and Plan - Assessment and Plan (Free Text) Assessment: 87M s/p ex-laparotomy, lysis of omental band, detorsion of small bowel mesentery POD5 Plan: -Regular diet -Encourage incentive spirometer use -Patient to be out of bed to chair -Encourage ambulation -PT -monitor urine output -Cardio recs appreciated -DVT ppx -Further recs per Dr. Copeland
[2017-12-30 08:00] VITALS: RESP 18
[2017-12-30] MEDS: Metoprolol Succinate 25 mg XL Tab PO SCH (08:17)
--- NOTE | 2017-12-30 09:39 | CP.PCM.PN ---
Subjective - Date & Time of Evaluation Date of Evaluation: 12/30/17 Time of Evaluation: 09:39 - Subjective Subjective: DENIES CHEAT PAINS/SOB NO COUGH AMBULATING WITH PT Objective - Vital Signs/Intake and Output Vital Signs (last 24 hours): Temp Pulse Resp BP Pulse Ox 98.3 F 79 18 112/69 96 12/30/17 08:00 12/30/17 08:17 12/30/17 08:00 12/30/17 08:17 12/30/17 08:00 - Medications Medications: Current Medications Acetaminophen (Tylenol 325mg Tab) 650 mg PO Q6 PRN PRN Reason: Fever >100.4 F Acetylcysteine (Mucomyst 10% 4ml) 2 ml IH RBID [facility] Last Admin: 12/30/17 07:29 Dose: 2 ml Albuterol Sulfate (Albuterol 0.083% Inhal Kaykay (2.5 Mg/3 Ml) Ud) 2.5 mg INH RQ4 PRN PRN Reason: Shortness of Breath Last Admin: 12/30/17 07:29 Dose: 2.5 mg Dextrose (Dextrose 50% Inj) 0 ml IVP STAT PRN; Protocol PRN Reason: Hypoglycemia Protocol Finasteride (Proscar) 5 mg PO QPM [facility] Last Admin: 12/29/17 17:31 Dose: 5 mg Glucagon (Glucagen Diagnostic Kit) 0 mg IM STAT PRN; Protocol PRN Reason: Hypoglycemia Protocol Heparin Sodium (Porcine) (Heparin) 5,000 units SC Q8 [facility] PRN Reason: Protocol Last Admin: 12/30/17 08:17 Dose: 5,000 units Cefazolin Sodium 1 gm/ (Dextrose) 100 mls @ 100 mls/hr IVPB Q12 [facility] PRN Reason: Protocol Last Admin: 12/30/17 08:19 Dose: 100 mls/hr Metronidazole (Flagyl 500mg/100ml Ns) 100 mls @ 100 mls/hr IVPB Q8 [facility] PRN Reason: Protocol Last Admin: 12/30/17 08:18 Dose: 100 mls/hr Levothyroxine Sodium (Synthroid) 75 mcg PO DAILY@0630 [facility] Last Admin: 12/30/17 06:49 Dose: 75 mcg Metoclopramide HCl (Reglan) 5 mg PO BID [facility] Last Admin: 12/30/17 08:17 Dose: 5 mg Metoprolol Succinate (Toprol Xl) 25 mg PO DAILY [facility] Last Admin: 12/30/17 08:17 Dose: 25 mg Ondansetron HCl (Zofran Inj) 4 mg IVP Q6 PRN PRN Reason: Nausea/Vomiting Last Admin: 12/28/17 04:20 Dose: 4 mg Pantoprazole Sodium (Protonix Inj) 40 mg IVP DAILY [facility] Last Admin: 12/30/17 08:17 Dose: 40 mg Tamsulosin HCl (Flomax) 0.4 mg PO QPM [facility] Last Admin: 12/29/17 17:31 Dose: 0.4 mg - Labs Labs: 12/29/17 04:20 12/29/17 04:20 PT 11.6 Seconds (9.8-13.1) 12/25/17 18:27 INR 1.0 (0.9-1.2) 12/25/17 18:27 APTT 30.2 Seconds (25.6-37.1) 12/25/17 18:27 - Constitutional Appears: No Acute Distress - Head Exam Head Exam: ATRAUMATIC, NORMAL INSPECTION, NORMOCEPHALIC - Eye Exam Eye Exam: EOMI, Normal appearance, PERRL Pupil Exam: NORMAL ACCOMODATION, PERRL - ENT Exam ENT Exam: Mucous Membranes Moist, Normal Exam - Neck Exam Neck Exam: Full ROM, Normal Inspection. absent: Lymphadenopathy - Respiratory Exam Respiratory Exam: Clear to Ausculation Bilateral, NORMAL BREATHING PATTERN - Cardiovascular Exam Cardiovascular Exam: REGULAR RHYTHM, +S1, +S2. absent: Murmur - GI/Abdominal Exam GI & Abdominal Exam: Soft, Normal Bowel Sounds. absent: Tenderness - Rectal Exam Rectal Exam: NORMAL INSPECTION - Extremities Exam Extremities Exam: Full ROM, Normal Capillary Refill, Normal Inspection. absent : Joint Swelling, Pedal Edema - Back Exam Back Exam: NORMAL INSPECTION - Neurological Exam Neurological Exam: Alert, Awake, CN II-XII Intact, Normal Gait, Oriented x3 - Psychiatric Exam Psychiatric exam: Normal Affect, Normal Mood - Skin Skin Exam: Dry, Intact, Normal Color, Warm Assessment and Plan - Assessment and Plan (Free Text) Assessment: APIRATION PNEUMONIA--IMPROVING Plan: CONTINUE CURRENT RX
[2017-12-30] MEDS ORDERED: Pneumococcal 23-Valent Vaccine IM ONE (12:11)
[2017-12-30 12:19] VITALS: BP 98/57; PULSE 78; TEMP 98; O2SAT 94
--- NOTE | 2017-12-30 13:40 | CP.PCM.DIS ---
Provider - Provider Date of Admission: 12/25/17 16:24 Attending physician: Gareth Kent MD Consults: Surgery Cardio Pulmonology Time Spent in preparation of Discharge (in minutes): 30 Diagnosis - Discharge Diagnosis (1) Intestinal obstruction Status: Acute Comment: Post op. Improving (2) Pneumonia Status: Acute Comment: Poss aspiration pneumonia, On IV abx, improving (3) HTN (hypertension) Status: Chronic Comment: Controlled Hospital Course - Lab Results Lab Results: Micro Results 12/29/17 10:28 Blood-Venous Blood Culture - Preliminary NO GROWTH AFTER 24 HOURS 12/26/17 07:59 Nose MRSA Culture (Admit) - Final MRSA NOT DETECTED Most Recent Lab Values WBC 9.0 K/uL (4.8-10.8) 12/29/17 04:20 RBC 3.34 Mil/uL (4.40-5.90) L 12/29/17 04:20 Hgb 11.1 g/dL (12.0-18.0) L 12/29/17 04:20 Hct 33.1 % (35.0-51.0) L 12/29/17 04:20 MCV 99.0 fl (80.0-94.0) H 12/29/17 04:20 MCH 33.1 pg (27.0-31.0) H 12/29/17 04:20 MCHC 33.5 g/dL (33.0-37.0) 12/29/17 04:20 RDW 12.8 % (11.5-14.5) 12/29/17 04:20 Plt Count 125 K/uL (130-400) L 12/29/17 04:20 MPV 9.9 fl (7.2-11.7) 12/28/17 04:20 Neut % (Auto) 84.6 % (50.0-75.0) H 12/28/17 04:20 Lymph % (Auto) 4.0 % (20.0-40.0) L 12/28/17 04:20 [place] % (Auto) 11.1 % (0.0-10.0) H 12/28/17 04:20 Eos % (Auto) 0.1 % (0.0-4.0) 12/28/17 04:20 Baso % (Auto) 0.2 % (0.0-2.0) 12/28/17 04:20 Neut # (Auto) 10.4 K/uL (1.8-7.0) H 12/28/17 04:20 Lymph # (Auto) 0.5 K/uL (1.0-4.3) L 12/28/17 04:20 [place] # (Auto) 1.4 K/uL (0.0-0.8) H 12/28/17 04:20 Eos # (Auto) 0.0 K/uL (0.0-0.7) 12/28/17 04:20 Baso # (Auto) 0.0 K/uL (0.0-0.2) 12/28/17 04:20 Neutrophils % (Manual) 80 % (42-75) H 12/26/17 04:25 Band Neutrophils % 9 % (0-2) H 12/26/17 04:25 Lymphocytes % (Manual) 4 % (20-50) L 12/26/17 04:25 Monocytes % (Manual) 6 % (0-10) 12/26/17 04:25 Eosinophils % (Manual) 1 % (0-7) 12/26/17 04:25 Platelet Estimate Normal (NORMAL) 12/26/17 04:25 Large Platelets Present 12/26/17 04:25 Poikilocytosis (manual Slight 12/26/17 04:25 Anisocytosis (manual) Slight 12/26/17 04:25 [place] Cells Slight 12/26/17 04:25 PT 11.6 Seconds (9.8-13.1) 12/25/17 18:27 INR 1.0 (0.9-1.2) 12/25/17 18:27 APTT 30.2 Seconds (25.6-37.1) 12/25/17 18:27 pCO2 49 mm/Hg (35-45) H 12/26/17 04:53 pO2 106 mm/Hg (80-100) H 12/26/17 04:53 HCO3 25.5 mmol/L (21-28) 12/26/17 04:53 ABG pH 7.35 (7.35-7.45) 12/26/17 04:53 ABG Total CO2 28.6 mmol/L (22-28) H 12/26/17 04:53 ABG O2 Saturation 100.6 % (95-98) H 12/26/17 04:53 ABG O2 Content 17.5 ML/dL (15-23) 12/26/17 04:53 ABG Base Excess 0.8 mmol/L (-2.0-3.0) 12/26/17 04:53 ABG Hemoglobin 12.9 g/dL (11.7-17.4) 12/26/17 04:53 ABG Carboxyhemoglobin 2.7 % (0.5-1.5) H 12/26/17 04:53 POC ABG HHb (Measured) -0.6 % (0.0-5.0) L 12/26/17 04:53 ABG Methemoglobin 2.2 % (0.0-3.0) 12/26/17 04:53 ABG O2 Capacity 17.4 mL/dL (16-24) 12/26/17 04:53 Jose Test Yes 12/26/17 04:53 A-a O2 Difference 32.0 mm/Hg 12/26/17 04:53 Hgb O2 Saturation 95.6 % (95.0-98.0) 12/26/17 04:53 Vent Mode N/c 12/26/17 04:53 FiO2 28.0 % 12/26/17 04:53 Sodium 137 mmol/l (132-148) 12/29/17 04:20 Potassium 3.8 MMOL/L (3.6-5.0) 12/29/17 04:20 Chloride 101 mmol/L (98-107) 12/29/17 04:20 Carbon Dioxide 27 mmol/L (22-30) 12/29/17 04:20 Anion Gap 13 (10-20) 12/29/17 04:20 BUN 43 mg/dl (9-20) H 12/29/17 04:20 Creatinine 1.6 mg/dl (0.8-1.5) H 12/29/17 04:20 Est GFR ( Amer) 50 12/29/17 04:20 Est GFR (Non-Af Amer) 41 12/29/17 04:20 POC Glucose (mg/dL) 131 mg/dL (65-110) H 12/30/17 11:01 Random Glucose 156 mg/dL (75-110) H 12/29/17 04:20 Lactic Acid 1.3 MMOL/L (0.7-2.1) 12/25/17 18:08 Calcium 8.4 mg/dL (8.4-10.2) 12/29/17 04:20 Total Bilirubin 0.4 mg/dl (0.2-1.3) 12/29/17 04:20 AST 23 U/L (17-59) 12/29/17 04:20 ALT 40 U/L (21-72) 12/29/17 04:20 Alkaline Phosphatase 32 U/L (38-126) L 12/29/17 04:20 Total Protein 5.0 G/DL (6.3-8.2) L 12/29/17 04:20 Albumin 2.6 g/dL (3.5-5.0) L 12/29/17 04:20 Globulin 2.4 gm/dL (2.2-3.9) 12/29/17 04:20 Albumin/Globulin Ratio 1.1 (1.0-2.1) 12/29/17 04:20 Blood Type B POSITIVE 12/25/17 18:00 Antibody Screen Negative 12/25/17 18:00 BBK History Checked Patient has bt 12/25/17 18:00 - Hospital Course Hospital Course: 87 y/o M was admitted to hosp for abd pain and happened to have a SBO, he underwent Sx treatment successfully and while in the hosp developed acute onset SOB, CXR showed R/base infiltrates, patient was already on IV abx for poss sepsis on admission and was treated with symptomatically. He improved from SOB and progressed well s/p bowel Sx and today he is decided to be transferred to TCU for PT and to cont IV abx. Discharge Exam - Head Exam Head Exam: ATRAUMATIC, NORMAL INSPECTION, NORMOCEPHALIC - Eye Exam Eye Exam: EOMI, PERRL - ENT Exam ENT Exam: Mucous Membranes Moist - Respiratory Exam Respiratory Exam: UNREMARKABLE. absent: Decreased Breath Sounds, Respiratory Distress - Cardiovascular Exam Cardiovascular Exam: REGULAR RHYTHM, +S1, +S2. absent: Gallop - GI/Abdominal Exam GI & Abdominal Exam: Normal Bowel Sounds, Soft, Tenderness (MIld, diffuse). absent: Distended, Guarding, Rebound - Neurological Exam Neurological exam: Alert, Oriented x3 - Psychiatric Exam Psychiatric exam: Normal Affect, Normal Mood - Skin Skin Exam: Normal Color, Warm Discharge Plan - Discharge Medications Prescriptions: ceFAZolin 1 gm in NS [Ancef 1GM in NS] 1 gm IV Q12 #14 bag metroNIDAZOLE 500mg/100ml NS [Flagyl 500MG/100ML NS] 500 mg IVPB Q8 #21 bag Pantoprazole [Protonix] 40 mg PO DAILY #30 ect - Follow Up Plan Condition: STABLE Disposition: REHAB FACILITY/REHAB UNIT Additional Instructions: pt. cleared for discharge to TCU today Al[place] cont. iv abx Referrals: Gareth Kent MD [Family Provider] - Sen Copeland MD [Medical Doctor] - Rancho Cabral MD [Staff Provider] -
== END 2017-12-30 15:00 | DRG 335 ==
LOC: H.ER 09:54 → H.ERHOLD 16:24 → H.ICU/CCU 22:10 → H.TEL 12-29 21:05
PROVIDERS: ADMIT Family Medicine; ATTEND Family Medicine
PROC: 0W9G00Z Drainage of Peritoneal Cavity with Drainage Device, Open Approach (ICD-10-PCS; 2017-12-25)
PROC: 3E0T3BZ Introduction of Anesthetic Agent into Peripheral Nerves and Plexi, Percutaneous Approach (ICD-10-PCS; 2017-12-25)
PROC: 3E0T33Z Introduction of Anti-inflammatory into Peripheral Nerves and Plexi, Percutaneous Approach (ICD-10-PCS; 2017-12-25)
PROC: 0DNU0ZZ Release Omentum, Open Approach (ICD-10-PCS; principal; 2017-12-25 19:00)
PROC: 0DN80ZZ Release Small Intestine, Open Approach (ICD-10-PCS; 2017-12-25 19:00)
PROC: 3E0234Z Introduction of Serum, Toxoid and Vaccine into Muscle, Percutaneous Approach (ICD-10-PCS; 2017-12-30)
DX: K56.699 Other intestinal obstruction unspecified as to partial versus complete obstruction (principal); J69.0 Pneumonitis due to inhalation of food and vomit; I47.2 Ventricular tachycardia; R18.8 Other ascites; K56.2 Volvulus; I48.0 Paroxysmal atrial fibrillation; N18.3 Chronic kidney disease, stage 3 (moderate); I12.9 Hypertensive chronic kidney disease with stage 1 through stage 4 chronic kidney disease, or unspecified chronic kidney disease; J98.01 Acute bronchospasm; R33.9 Retention of urine, unspecified; E87.6 Hypokalemia; J44.9 Chronic obstructive pulmonary disease, unspecified; I49.3 Ventricular premature depolarization; E78.5 Hyperlipidemia, unspecified; E03.9 Hypothyroidism, unspecified; E78.00 Pure hypercholesterolemia, unspecified; N40.0 Benign prostatic hyperplasia without lower urinary tract symptoms; I51.9 Heart disease, unspecified; Z23 Encounter for immunization; Z85.46 Personal history of malignant neoplasm of prostate; Z92.3 Personal history of irradiation; Z87.891 Personal history of nicotine dependence

== ENCOUNTER 2017-12-30 14:08 | Inpatient (IN) | payer OTHER, MEDICARE ==
[2017-12-30 15:25] VITALS: BMI 16.7
[2017-12-30] MEDS ORDERED: Sodium Chloride 3% for Inhalation 4 ML VIAL.NEB IH PRN (16:11)
[2017-12-30] MEDS ORDERED: metroNIDAZOLE 500mg/100ml NS IVPB SCH (17:00)
[2017-12-30] MEDS: ceFAZolin 1 GM in Sodium Chloride 0.9% 100 ML IVPB SCH (17:13)
[2017-12-30] MEDS: metroNIDAZOLE 500mg/100ml NS 100 ML IVPB SCH (21:15)
[2017-12-31] MEDS: metroNIDAZOLE 500mg/100ml NS 100 ML IVPB SCH ×3 (04:25→21:11)
[2017-12-31] MEDS: ceFAZolin 1 GM in Sodium Chloride 0.9% 100 ML IVPB SCH ×2 (04:26→16:43)
[2017-12-31] MEDS: Pantoprazole 40 mg EC Tab PO SCH (08:15)
[2017-12-31] MEDS: Metoprolol Succinate 25 mg XL Tab PO SCH (08:15)
[2017-12-31] MEDS ORDERED: Levothyroxine 75 MCG TAB PO SCH (09:00)
[2017-12-31] MEDS: Levothyroxine 75 MCG TAB PO SCH (09:33)
--- NOTE | 2017-12-31 09:45 | CP.PCM.HP ---
History of Present Illness - History of Present Illness History of Present Illness: 87 y/o M with Hx of prostate problems, a.fib, hypothyroid, dysarthria, and CKD was admitted to hosp after c/o abd pain and NMNM diarrhea for 6 days. He had 1 NBNB vomiting. As per patient pain progressively increased in intensity over the past week. Denies CP, SOB, palpitations or fever. CT abd at ED showed high grade SBO. He underwent Sx treatment successfully and while in the hosp developed acute onset SOB, CXR showed R/base infiltrates, patient was already on IV abx for poss sepsis on admission and was treated with symptomatically. He improved from SOB and progressed well s/p bowel Sx and yesterday he transferred to TCU for PT and to cont IV abx. Today patient is feeling better, sitting at bedside reading/writing. No acute distress. Still c/ o mild abd pain. + Bm Yesterday + flatus. Denies SOB, CP. Afebrile Present on Admission - Present on Admission Any Indicators Present on Admission: No Review of Systems - Review of Systems All systems: reviewed and no additional remarkable complaints except - Gastrointestinal Gastrointestinal: Abdominal Pain (Mild) Past Patient History - Past Medical History & Family History Past Medical History?: Yes - Past Social History Smoking Status: Former Smoker - CARDIAC Hx Atrial Fibrillation: No Hx Cardia Arrhythmia: Yes (ATRIAL FIB.) Hx Hypertension: Yes - PULMONARY Hx Respiratory Disorders: No - NEUROLOGICAL Hx Neurological Disorder: No - HEENT Hx HEENT Problems: No - RENAL Hx Chronic Kidney Disease: Yes - ENDOCRINE/METABOLIC Hx Hypothyroidism: Yes - HEMATOLOGICAL/ONCOLOGICAL Hx Blood Disorders: No Hx AIDS: No Hx Human Immunodeficiency Virus (HIV): No - INTEGUMENTARY Hx Dermatological Problems: No - MUSCULOSKELETAL/RHEUMATOLOGICAL Hx Musculoskeletal Disorders: No Hx Falls: No - GASTROINTESTINAL Hx Gastrointestinal Disorders: No - GENITOURINARY/GYNECOLOGICAL Hx Genitourinary Disorders: Yes Hx Prostate Problems: Yes Other/Comment: BPH - PSYCHIATRIC Hx Bipolar Disorder: No Hx Substance Use: No - SURGICAL HISTORY Hx Surgeries: Yes Hx Cataract Extraction: Yes (Left eye) Hx Tonsillectomy: Yes Other/Comment: HX: PROSTATE BIOPSY. HX: CMG; CYSTO 10/23/16. s/p small bowel resection 12/25/17 - ANESTHESIA Hx Anesthesia: Yes Hx Anesthesia Reactions: No Hx Malignant Hyperthermia: No Has any member of the family had a problem w/ anesthesia?: No Meds Allergies/Adverse Reactions: Allergies Allergy/AdvReac Type Severity Reaction Status Date / Time No Known Allergies Allergy Verified 12/30/17 15:23 Physical Exam - Constitutional Appears: Non-toxic, No Acute Distress - Eye Exam Eye Exam: EOMI, PERRL - ENT Exam ENT Exam: Mucous Membranes Moist - Respiratory Exam Respiratory Exam: Clear to Auscultation Bilateral, NORMAL BREATHING PATTERN. absent: Decreased Breath Sounds, Rales - Cardiovascular Exam Cardiovascular Exam: +S1, +S2. absent: Gallop - GI/Abdominal Exam GI & Abdominal Exam: Normal Bowel Sounds, Soft, Tenderness (Mild, diffuse). absent: Distended, Guarding, Rigid - Extremities Exam Extremities exam: Positive for: normal capillary refill, pedal pulses present. Negative for: calf tenderness, pedal edema, tenderness - Neurological Exam Neurological exam: Alert, Oriented x3, Reflexes Normal - Psychiatric Exam Psychiatric exam: Normal Affect, Normal Mood - Skin Skin Exam: Normal Color, Warm Results - Vital Signs Recent Vital Signs: Last Vital Signs Temp 98.6 F 12/31/17 08:42 Pulse 83 12/31/17 08:42 Resp 20 12/31/17 08:42 BP 127/71 12/31/17 08:42 Pulse Ox 91 L 12/31/17 08:42 Assessment & Plan - Assessment and Plan (Free Text) Assessment: S/P SBO with Sx repair Suspected CAP with sepsis Sepsis resolved Bcx no growth Doing well C/W IV abx as per ID 7 more days ID consult appreciated C/w Current meds Encouraged ambulation Stool softener PRN for constipation PT/OT
[2018-01-01] MEDS: ceFAZolin 1 GM in Sodium Chloride 0.9% 100 ML IVPB SCH ×2 (04:21→16:53)
[2018-01-01] MEDS: metroNIDAZOLE 500mg/100ml NS 100 ML IVPB SCH ×3 (04:21→21:26)
[2018-01-01] MEDS: Levothyroxine 75 MCG TAB PO SCH (05:29)
[2018-01-01 06:03] LABS: BASO % 0.3 % (0.0-2.0); EOS # 0.3 K/uL (0.0-0.7); EOS % 3.6 % (0.0-4.0); HEMOGLOBIN 11.3 g/dL (12.0-18.0); LYMPH # 0.9 K/uL (1.0-4.3); MEAN CELL VOLUME 97.6 fl (80.0-94.0); MEAN CORPUSCULAR HEMOGLOBIN 32.7 pg (27.0-31.0); MEAN CORPUSCULAR HGB CONC 33.5 g/dL (33.0-37.0); MEAN PLATELET VOLUME 8.5 fl (7.2-11.7); MONO # 0.8 K/uL (0.0-0.8); MONO % 10.5 % (0.0-10.0); NEUT # 5.3 K/uL (1.8-7.0); NEUT % 73.6 % (50.0-75.0); RBC 3.44 Mil/uL (4.40-5.90); RED CELL DISTRIBUTION WIDTH 13.4 % (11.5-14.5); WHITE BLOOD COUNT 7.2 K/uL (4.8-10.8)
[2018-01-01 06:37] LABS: BLOOD UREA NITROGEN 25 mg/dl (9-20); GFR AFRICAN-AMERICAN > 60; GFR NON-AFRICAN AMERICAN > 60
[2018-01-01] MEDS ORDERED: Potassium Chloride 20 mEq ER Tab PO ONE (08:15)
[2018-01-01] MEDS: Metoprolol Succinate 25 mg XL Tab PO SCH (09:12)
[2018-01-01] MEDS: Pantoprazole 40 mg EC Tab PO SCH (09:13)
--- NOTE | 2018-01-01 11:05 | CP.PCM.PN ---
Subjective - Date & Time of Evaluation Date of Evaluation: 01/01/18 Time of Evaluation: 10:45 - Subjective Subjective: Stable, sitting in chair at bedside in not acute distress. No changes in urination or stools. +BM, +Flatus. Denies nausea, vomiting, CP. Admits abd at times, mild as well as SOB improved with duonebs. Afebrile Objective - Vital Signs/Intake and Output Vital Signs (last 24 hours): Temp Pulse Resp BP Pulse Ox 98.1 F 75 20 111/73 95 01/01/18 07:44 01/01/18 09:12 01/01/18 07:44 01/01/18 09:12 01/01/18 07:44 - Medications Medications: Current Medications Acetaminophen (Tylenol 325mg Tab) 650 mg PO Q6 PRN PRN Reason: Fever >100.4 F Albuterol Sulfate (Albuterol 0.083% Inhal [place] (2.5 Mg/3 Ml) Ud) 2.5 mg INH RQ4 PRN PRN Reason: Shortness of Breath Docusate Sodium (Colace) 100 mg PO BID [facility] Last Admin: 01/01/18 09:12 Dose: 100 mg Finasteride (Proscar) 5 mg PO QPM [facility] Last Admin: 12/31/17 17:57 Dose: 5 mg Heparin Sodium (Porcine) (Heparin) 5,000 units SC Q8 [facility] PRN Reason: Protocol Last Admin: 01/01/18 09:13 Dose: 5,000 units Cefazolin Sodium 1 gm/ Sodium (Chloride) 100 mls @ 100 mls/hr IVPB Q12@0500, 1700 [facility] PRN Reason: Protocol Last Admin: 01/01/18 04:21 Dose: 100 mls/hr Metronidazole (Flagyl 500mg/100ml Ns) 100 mls @ 100 mls/hr IVPB Q8@0500,1300, 2100 [facility] PRN Reason: Protocol Last Admin: 01/01/18 04:21 Dose: 100 mls/hr Levothyroxine Sodium (Synthroid) 75 mcg PO DAILY@0630 [facility] Last Admin: 01/01/18 05:29 Dose: 75 mcg Metoclopramide HCl (Reglan) 5 mg PO BID [facility] Last Admin: 12/31/17 16:44 Dose: 5 mg Metoprolol Succinate (Toprol Xl) 25 mg PO DAILY [facility] Last Admin: 01/01/18 09:12 Dose: 25 mg Ondansetron HCl (Zofran Inj) 4 mg IVP Q6 PRN PRN Reason: Nausea/Vomiting Pantoprazole Sodium (Protonix Ec Tab) 40 mg PO DAILY [facility] Last Admin: 01/01/18 09:13 Dose: 40 mg Tamsulosin HCl (Flomax) 0.4 mg PO QPM [facility] Last Admin: 12/31/17 17:57 Dose: 0.4 mg - Labs Labs: 01/01/18 05:54 01/01/18 05:54 - Constitutional Appears: Non-toxic, No Acute Distress - Head Exam Head Exam: NORMAL INSPECTION - Eye Exam Eye Exam: PERRL - ENT Exam ENT Exam: Mucous Membranes Moist - Respiratory Exam Respiratory Exam: Decreased Breath Sounds (R/base), NORMAL BREATHING PATTERN. absent: Rales, Wheezes, Respiratory Distress - Cardiovascular Exam Cardiovascular Exam: REGULAR RHYTHM, +S1, +S2, Murmur. absent: Gallop - GI/Abdominal Exam GI & Abdominal Exam: Soft, Tenderness (Mild, diffuse), Normal Bowel Sounds. absent: Distended, Firm, Guarding, Rigid, Rebound - Extremities Exam Extremities Exam: Normal Capillary Refill. absent: Calf Tenderness, Pedal Edema , Tenderness - Neurological Exam Neurological Exam: Alert, Awake, Oriented x3 - Psychiatric Exam Psychiatric exam: Normal Affect, Normal Mood - Skin Skin Exam: Normal Color, Warm Assessment and Plan - Assessment and Plan (Free Text) Assessment: S/P SBO/laparotomy POD7 Aspiration pneumonia C/W IV abx C/W Duonebs PRN Encouraged ambulation C/W PT(doing well) Medically stable tolerating PO Surgery consult appreciated
--- NOTE | 2018-01-01 13:41 | CP.PCM.CON ---
History of Present Illness - History of Present Illness History of Present Illness: CONSULT FOR DR. 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 Patient did well post-op and is now in reha Denies any pain, nausea, vomiting. Admits to bowel function and he is tolerating diet. Past Patient History - Past Medical History & Family History Past Medical History?: Yes - Past Social History Smoking Status: Former Smoker - CARDIAC Hx Atrial Fibrillation: No Hx Cardia Arrhythmia: Yes (ATRIAL FIB.) Hx Hypertension: Yes - PULMONARY Hx Respiratory Disorders: No - NEUROLOGICAL Hx Neurological Disorder: No - HEENT Hx HEENT Problems: No - RENAL Hx Chronic Kidney Disease: Yes - ENDOCRINE/METABOLIC Hx Hypothyroidism: Yes - HEMATOLOGICAL/ONCOLOGICAL Hx Blood Disorders: No Hx AIDS: No Hx Human Immunodeficiency Virus (HIV): No - INTEGUMENTARY Hx Dermatological Problems: No - MUSCULOSKELETAL/RHEUMATOLOGICAL Hx Musculoskeletal Disorders: No Hx Falls: No - GASTROINTESTINAL Hx Gastrointestinal Disorders: No - GENITOURINARY/GYNECOLOGICAL Hx Genitourinary Disorders: Yes Hx Prostate Problems: Yes Other/Comment: BPH - PSYCHIATRIC Hx Bipolar Disorder: No Hx Substance Use: No - SURGICAL HISTORY Hx Surgeries: Yes Hx Cataract Extraction: Yes (Left eye) Hx Tonsillectomy: Yes Other/Comment: HX: PROSTATE BIOPSY. HX: CMG; CYSTO 10/23/16. s/p small bowel resection 12/25/17 - ANESTHESIA Hx Anesthesia: Yes Hx Anesthesia Reactions: No Hx Malignant Hyperthermia: No Has any member of the family had a problem w/ anesthesia?: No Meds Allergies/Adverse Reactions: Allergies Allergy/AdvReac Type Severity Reaction Status Date / Time No Known Allergies Allergy Verified 12/30/17 15:23 - Medications Medications: Current Medications Acetaminophen (Tylenol 325mg Tab) 650 mg PO Q6 PRN PRN Reason: Fever >100.4 F Albuterol Sulfate (Albuterol 0.083% Inhal [place] (2.5 Mg/3 Ml) Ud) 2.5 mg INH RQ4 PRN PRN Reason: Shortness of Breath Docusate Sodium (Colace) 100 mg PO BID [facility] Last Admin: 01/01/18 09:12 Dose: 100 mg Finasteride (Proscar) 5 mg PO QPM [facility] Last Admin: 12/31/17 17:57 Dose: 5 mg Heparin Sodium (Porcine) (Heparin) 5,000 units SC Q8 [facility] PRN Reason: Protocol Last Admin: 01/01/18 09:13 Dose: 5,000 units Cefazolin Sodium 1 gm/ Sodium (Chloride) 100 mls @ 100 mls/hr IVPB Q12@0500, 1700 [facility] PRN Reason: Protocol Last Admin: 01/01/18 04:21 Dose: 100 mls/hr Metronidazole (Flagyl 500mg/100ml Ns) 100 mls @ 100 mls/hr IVPB Q8@0500,1300, 2100 [facility] PRN Reason: Protocol Last Admin: 01/01/18 12:00 Dose: 100 mls/hr Levothyroxine Sodium (Synthroid) 75 mcg PO DAILY@0630 [facility] Last Admin: 01/01/18 05:29 Dose: 75 mcg Metoclopramide HCl (Reglan) 5 mg PO BID [facility] Last Admin: 01/01/18 10:30 Dose: 5 mg Metoprolol Succinate (Toprol Xl) 25 mg PO DAILY [facility] Last Admin: 01/01/18 09:12 Dose: 25 mg Ondansetron HCl (Zofran Inj) 4 mg IVP Q6 PRN PRN Reason: Nausea/Vomiting Pantoprazole Sodium (Protonix Ec Tab) 40 mg PO DAILY [facility] Last Admin: 01/01/18 09:13 Dose: 40 mg Tamsulosin HCl (Flomax) 0.4 mg PO QPM [facility] Last Admin: 12/31/17 17:57 Dose: 0.4 mg Results - Vital Signs Recent Vital Signs: Last Vital Signs Temp 98.1 F 01/01/18 07:44 Pulse 92 H 01/01/18 10:37 Resp 20 01/01/18 07:44 BP 111/73 01/01/18 09:12 Pulse Ox 96 01/01/18 10:37 - Labs Result Diagrams: 01/01/18 05:54 01/01/18 05:54 Labs: Laboratory Results - last 24 hr 01/01/18 01/01/18 05:54 05:54 WBC 7.2 RBC 3.44 L Hgb 11.3 L Hct 33.6 L MCV 97.6 H MCH 32.7 H MCHC 33.5 RDW 13.4 Plt Count 162 MPV 8.5 Neut % (Auto) 73.6 Lymph % (Auto) 12.0 L [place] % (Auto) 10.5 H Eos % (Auto) 3.6 Baso % (Auto) 0.3 Neut # (Auto) 5.3 Lymph # (Auto) 0.9 L [place] # (Auto) 0.8 Eos # (Auto) 0.3 Baso # (Auto) 0.0 Sodium 144 Potassium 3.3 L Chloride 109 H Carbon Dioxide 26 Anion Gap 12 BUN 25 H Creatinine 1.1 Est GFR ( Amer) > 60 Est GFR (Non-Af Amer) > 60 Random Glucose 88 Calcium 8.0 L Assessment & Plan - Assessment and Plan (Free Text) Assessment: 87M s/p ex-laparotomy revealing closed loop SBO with mesenteric torsion which was reduced. POD7 Plan: Plan to remove griffin over the weekend Discussed with Dr. Dinorah Silva, PGY2
[2018-01-02] MEDS: ceFAZolin 1 GM in Sodium Chloride 0.9% 100 ML IVPB SCH (04:40)
[2018-01-02] MEDS: Levothyroxine 75 MCG TAB PO SCH (06:33)
[2018-01-02] MEDS: metroNIDAZOLE 500mg/100ml NS 100 ML IVPB SCH ×3 (06:33→20:22)
[2018-01-02] MEDS: Metoprolol Succinate 25 mg XL Tab PO SCH (08:48)
[2018-01-02] MEDS: Pantoprazole 40 mg EC Tab PO SCH (08:48)
[2018-01-02] MEDS: Albuterol 0.083% Inhal Sol (2.5 mg/3 mL) UD INH PRN ×2 (14:24→19:20)
--- NOTE | 2018-01-02 16:07 | CP.PCM.PN ---
Subjective - Date & Time of Evaluation Date of Evaluation: 01/02/18 Time of Evaluation: 12:00 - Subjective Subjective: Doing better. Stable. No acute events overnight. No acute distress. + Flatus. + BM. Denies CP, palpitations. SOB improved Objective - Vital Signs/Intake and Output Vital Signs (last 24 hours): Temp Pulse Resp BP Pulse Ox 98.2 F 78 18 120/70 98 01/02/18 07:57 01/02/18 10:42 01/02/18 07:57 01/02/18 08:48 01/02/18 10:42 - Medications Medications: Current Medications Acetaminophen (Tylenol 325mg Tab) 650 mg PO Q6 PRN PRN Reason: Fever >100.4 F Albuterol Sulfate (Albuterol 0.083% Inhal [place] (2.5 Mg/3 Ml) Ud) 2.5 mg INH RQ4 PRN PRN Reason: Shortness of Breath Last Admin: 01/02/18 14:24 Dose: 2.5 mg Docusate Sodium (Colace) 100 mg PO BID [facility] Last Admin: 01/02/18 08:47 Dose: 100 mg Finasteride (Proscar) 5 mg PO QPM [facility] Last Admin: 01/01/18 17:10 Dose: 5 mg Heparin Sodium (Porcine) (Heparin) 5,000 units SC Q8 [facility] PRN Reason: Protocol Last Admin: 01/02/18 08:50 Dose: 5,000 units Metronidazole (Flagyl 500mg/100ml Ns) 100 mls @ 100 mls/hr IVPB Q8@0500,1300, 2100 [facility] PRN Reason: Protocol Last Admin: 01/02/18 12:04 Dose: 100 mls/hr Cefazolin Sodium 1 gm/ (Dextrose) 100 mls @ 100 mls/hr IVPB Q12@0500,1700 [facility] PRN Reason: Protocol Levothyroxine Sodium (Synthroid) 75 mcg PO DAILY@0630 [facility] Last Admin: 01/02/18 06:33 Dose: 75 mcg Metoclopramide HCl (Reglan) 5 mg PO BID [facility] Last Admin: 01/02/18 08:51 Dose: 5 mg Metoprolol Succinate (Toprol Xl) 25 mg PO DAILY [facility] Last Admin: 01/02/18 08:48 Dose: 25 mg Ondansetron HCl (Zofran Inj) 4 mg IVP Q6 PRN PRN Reason: Nausea/Vomiting Pantoprazole Sodium (Protonix Ec Tab) 40 mg PO DAILY [facility] Last Admin: 01/02/18 08:48 Dose: 40 mg Tamsulosin HCl (Flomax) 0.4 mg PO QPM [facility] Last Admin: 01/01/18 17:11 Dose: 0.4 mg - Labs Labs: 01/01/18 05:54 01/01/18 05:54 - Constitutional Appears: Non-toxic, No Acute Distress - Eye Exam Eye Exam: EOMI, PERRL - ENT Exam ENT Exam: Mucous Membranes Moist - Respiratory Exam Respiratory Exam: Decreased Breath Sounds, NORMAL BREATHING PATTERN. absent: Rales, Rhonchi, Wheezes, Respiratory Distress, Stridor - Cardiovascular Exam Cardiovascular Exam: REGULAR RHYTHM, +S1, +S2. absent: Gallop - GI/Abdominal Exam GI & Abdominal Exam: Soft, Tenderness (Mild). absent: Distended, Guarding, Rigid, Rebound Additional comments: Stiches in place. Wound clean and dry - Extremities Exam Extremities Exam: absent: Pedal Edema, Tenderness - Neurological Exam Neurological Exam: Alert, Awake, Oriented x3 - Psychiatric Exam Psychiatric exam: Normal Affect, Normal Mood - Skin Skin Exam: Warm. absent: Petechiae, Rash, Urticaria Assessment and Plan - Assessment and Plan (Free Text) Assessment: Aspiration pneumonia S/P laparotmy SOB Surgery on board: Plan to remove stitches over the weekend Stable C/W Abx C/W PT Encouraged ambulation
[2018-01-02] MEDS ORDERED: methylPREDNISolone 125 MG in Sodium Chloride 0.9% 50 ML IVPB ONE (18:37)
[2018-01-03] MEDS: Albuterol 0.083% Inhal Sol (2.5 mg/3 mL) UD INH PRN ×2 (00:34→07:44)
[2018-01-03] MEDS: metroNIDAZOLE 500mg/100ml NS 100 ML IVPB SCH ×3 (05:00→21:19)
[2018-01-03] MEDS: Levothyroxine 75 MCG TAB PO SCH (06:30)
[2018-01-03 07:30] LABS: BLOOD UREA NITROGEN 24 mg/dl (9-20); CALCIUM 7.9 mg/dL (8.4-10.2); GFR AFRICAN-AMERICAN > 60; GFR NON-AFRICAN AMERICAN > 60
[2018-01-03] MEDS: Pantoprazole 40 mg EC Tab PO SCH (08:23)
[2018-01-03] MEDS: Metoprolol Succinate 25 mg XL Tab PO SCH (08:24)
[2018-01-03] MEDS: Albuterol 0.083% Inhal Sol (2.5 mg/3 mL) UD INH SCH ×3 (15:45→23:48)
[2018-01-03] MEDS: MethylPREDNISolone 40 mg Vial IVP SCH (18:03)
--- NOTE | 2018-01-03 18:18 | RAD ---
HISTORY: COMPARISON: Comparison chest dated 12/28/2017. TECHNIQUE: Chest PA and lateral FINDINGS: LUNGS: Findings suggest underlying COPD. Minor bibasilar atelectasis and or scarring changes left greater than right PLEURA: Mild biapical pleural thickening. No significant pleural effusion identified. No pneumothorax apparent. CARDIOVASCULAR: Heart size within range of normal. Aorta is slightly ectatic and uncoiled. OSSEOUS STRUCTURES: Minor multilevel degenerative spondylosis of the thoracic spine. . VISUALIZED UPPER ABDOMEN: Normal. OTHER FINDINGS: None. IMPRESSION: Findings suggest underlying COPD. Mild left basilar atelectasis and or scarring. Mild biapical pleural thickening.
[2018-01-04] MEDS: Albuterol 0.083% Inhal Sol (2.5 mg/3 mL) UD INH SCH ×6 (04:20→23:32)
[2018-01-04] MEDS: metroNIDAZOLE 500mg/100ml NS 100 ML IVPB SCH ×3 (05:11→21:20)
[2018-01-04] MEDS: Levothyroxine 75 MCG TAB PO SCH ×2 (05:23→05:31)
[2018-01-04] MEDS: Metoprolol Succinate 25 mg XL Tab PO SCH (08:21)
[2018-01-04] MEDS: Pantoprazole 40 mg EC Tab PO SCH (08:22)
[2018-01-04] MEDS: MethylPREDNISolone 40 mg Vial IVP SCH (08:36)
[2018-01-04] MEDS ORDERED: MethylPREDNISolone 40 mg Vial IVP SCH (09:00)
[2018-01-04] MEDS ORDERED: methylPREDNISolone 30 MG in Sodium Chloride 0.9% 50 ML IVPB SCH (09:00)
[2018-01-04] MEDS: Nasal Spray(Ocean spray) NAS SCH (16:43)
[2018-01-05] MEDS: Albuterol 0.083% Inhal Sol (2.5 mg/3 mL) UD INH SCH ×5 (05:13→19:12)
[2018-01-05] MEDS: Levothyroxine 75 MCG TAB PO SCH (05:51)
[2018-01-05] MEDS: Nasal Spray(Ocean spray) NAS SCH ×3 (08:15→16:32)
[2018-01-05] MEDS: Pantoprazole 40 mg EC Tab PO SCH (08:21)
[2018-01-05] MEDS: Metoprolol Succinate 25 mg XL Tab PO SCH (08:21)
[2018-01-05] MEDS: MethylPREDNISolone 40 mg Vial IVP SCH (08:28)
[2018-01-05 15:22] VITALS: RESP 20
--- NOTE | 2018-01-05 22:38 | CP.PCM.PN ---
Subjective - Date & Time of Evaluation Date of Evaluation: 01/03/18 Time of Evaluation: 10:20 - Subjective Subjective: Patient is doing well Has no chest pain or SOB Has no fever Has occasional cough and wheeze Objective - Vital Signs/Intake and Output Vital Signs (last 24 hours): Temp Pulse Resp BP Pulse Ox 98.4 F 83 20 113/68 95 01/05/18 19:13 01/05/18 19:13 01/05/18 19:13 01/05/18 19:13 01/05/18 19:13 - Medications Medications: Current Medications Acetaminophen (Tylenol 325mg Tab) 650 mg PO Q6 PRN PRN Reason: Fever >100.4 F Albuterol Sulfate (Albuterol 0.083% Inhal [place] (2.5 Mg/3 Ml) Ud) 2.5 mg INH RQ4 [facility] Last Admin: 01/05/18 19:12 Dose: 2.5 mg Docusate Sodium (Colace) 100 mg PO BID [facility] Last Admin: 01/05/18 16:32 Dose: Not Given Finasteride (Proscar) 5 mg PO QPM [facility] Last Admin: 01/05/18 18:31 Dose: 5 mg Heparin Sodium (Porcine) (Heparin) 5,000 units SC Q8 [facility] PRN Reason: Protocol Last Admin: 01/05/18 16:31 Dose: 5,000 units Levothyroxine Sodium (Synthroid) 75 mcg PO DAILY@0630 [facility] Last Admin: 01/05/18 05:51 Dose: 75 mcg Methylprednisolone (Solu-Medrol) 30 mg IVP DAILY [facility] Last Admin: 01/05/18 08:28 Dose: 30 mg Metoclopramide HCl (Reglan) 5 mg PO BID [facility] Last Admin: 01/05/18 16:30 Dose: 5 mg Metoprolol Succinate (Toprol Xl) 25 mg PO DAILY [facility] Last Admin: 01/05/18 08:21 Dose: 25 mg Ondansetron HCl (Zofran Inj) 4 mg IVP Q6 PRN PRN Reason: Nausea/Vomiting Pantoprazole Sodium (Protonix Ec Tab) 40 mg PO DAILY [facility] Last Admin: 01/05/18 08:21 Dose: 40 mg Sodium Chloride ([place] Nasal [place]) 1 sprays YADI TID [facility] Last Admin: 01/05/18 16:32 Dose: 1 unit Tamsulosin HCl (Flomax) 0.4 mg PO QPM [facility] Last Admin: 01/05/18 18:31 Dose: 0.4 mg - Labs Labs: 01/01/18 05:54 01/03/18 05:10 - Head Exam Head Exam: NORMAL INSPECTION - Eye Exam Eye Exam: Normal appearance - ENT Exam ENT Exam: Mucous Membranes Moist - Respiratory Exam Respiratory Exam: Decreased Breath Sounds, Rhonchi - Cardiovascular Exam Cardiovascular Exam: REGULAR RHYTHM Assessment and Plan (1) Acute urinary retention Status: Acute (2) Pneumonia Status: Acute (3) HTN (hypertension) Status: Chronic (4) Asthma Status: Acute (5) GERD (gastroesophageal reflux disease) Status: Acute - Assessment and Plan (Free Text) Plan: Cont meds Cont tx Cont PT
--- NOTE | 2018-01-05 22:40 | CP.PCM.PN ---
Subjective - Date & Time of Evaluation Date of Evaluation: 01/04/18 Time of Evaluation: 10:40 - Subjective Subjective: Patient remains stable Has no chest pain or SOB Afebrile Objective - Vital Signs/Intake and Output Vital Signs (last 24 hours): Temp Pulse Resp BP Pulse Ox 98.4 F 83 20 113/68 95 01/05/18 19:13 01/05/18 19:13 01/05/18 19:13 01/05/18 19:13 01/05/18 19:13 - Medications Medications: Current Medications Acetaminophen (Tylenol 325mg Tab) 650 mg PO Q6 PRN PRN Reason: Fever >100.4 F Albuterol Sulfate (Albuterol 0.083% Inhal [place] (2.5 Mg/3 Ml) Ud) 2.5 mg INH RQ4 [facility] Last Admin: 01/05/18 19:12 Dose: 2.5 mg Docusate Sodium (Colace) 100 mg PO BID [facility] Last Admin: 01/05/18 16:32 Dose: Not Given Finasteride (Proscar) 5 mg PO QPM [facility] Last Admin: 01/05/18 18:31 Dose: 5 mg Heparin Sodium (Porcine) (Heparin) 5,000 units SC Q8 [facility] PRN Reason: Protocol Last Admin: 01/05/18 16:31 Dose: 5,000 units Levothyroxine Sodium (Synthroid) 75 mcg PO DAILY@0630 [facility] Last Admin: 01/05/18 05:51 Dose: 75 mcg Methylprednisolone (Solu-Medrol) 30 mg IVP DAILY [facility] Last Admin: 01/05/18 08:28 Dose: 30 mg Metoclopramide HCl (Reglan) 5 mg PO BID [facility] Last Admin: 01/05/18 16:30 Dose: 5 mg Metoprolol Succinate (Toprol Xl) 25 mg PO DAILY [facility] Last Admin: 01/05/18 08:21 Dose: 25 mg Ondansetron HCl (Zofran Inj) 4 mg IVP Q6 PRN PRN Reason: Nausea/Vomiting Pantoprazole Sodium (Protonix Ec Tab) 40 mg PO DAILY [facility] Last Admin: 01/05/18 08:21 Dose: 40 mg Sodium Chloride ([place] Nasal [place]) 1 sprays YADI TID [facility] Last Admin: 01/05/18 16:32 Dose: 1 unit Tamsulosin HCl (Flomax) 0.4 mg PO QPM [facility] Last Admin: 01/05/18 18:31 Dose: 0.4 mg - Labs Labs: 01/01/18 05:54 01/03/18 05:10 - Head Exam Head Exam: NORMAL INSPECTION - Eye Exam Eye Exam: Normal appearance - Respiratory Exam Respiratory Exam: Clear to Ausculation Bilateral - Cardiovascular Exam Cardiovascular Exam: REGULAR RHYTHM - GI/Abdominal Exam GI & Abdominal Exam: Normal Bowel Sounds - Neurological Exam Neurological Exam: Awake, Oriented x3 Assessment and Plan (1) Acute urinary retention Status: Acute (2) Pneumonia Status: Acute (3) HTN (hypertension) Status: Chronic (4) Asthma Status: Acute (5) GERD (gastroesophageal reflux disease) Status: Acute - Assessment and Plan (Free Text) Plan: Cont meds Cont tx Cont Phys therapy
--- NOTE | 2018-01-05 22:42 | CP.PCM.PN ---
Subjective - Date & Time of Evaluation Date of Evaluation: 01/05/18 Time of Evaluation: 10:50 - Subjective Subjective: Patient remains stable Doing well with therapy Has no fever. Objective - Vital Signs/Intake and Output Vital Signs (last 24 hours): Temp Pulse Resp BP Pulse Ox 98.4 F 83 20 113/68 95 01/05/18 19:13 01/05/18 19:13 01/05/18 19:13 01/05/18 19:13 01/05/18 19:13 - Medications Medications: Current Medications Acetaminophen (Tylenol 325mg Tab) 650 mg PO Q6 PRN PRN Reason: Fever >100.4 F Albuterol Sulfate (Albuterol 0.083% Inhal [place] (2.5 Mg/3 Ml) Ud) 2.5 mg INH RQ4 [facility] Last Admin: 01/05/18 19:12 Dose: 2.5 mg Docusate Sodium (Colace) 100 mg PO BID [facility] Last Admin: 01/05/18 16:32 Dose: Not Given Finasteride (Proscar) 5 mg PO QPM [facility] Last Admin: 01/05/18 18:31 Dose: 5 mg Heparin Sodium (Porcine) (Heparin) 5,000 units SC Q8 [facility] PRN Reason: Protocol Last Admin: 01/05/18 16:31 Dose: 5,000 units Levothyroxine Sodium (Synthroid) 75 mcg PO DAILY@0630 [facility] Last Admin: 01/05/18 05:51 Dose: 75 mcg Methylprednisolone (Solu-Medrol) 30 mg IVP DAILY [facility] Last Admin: 01/05/18 08:28 Dose: 30 mg Metoclopramide HCl (Reglan) 5 mg PO BID [facility] Last Admin: 01/05/18 16:30 Dose: 5 mg Metoprolol Succinate (Toprol Xl) 25 mg PO DAILY [facility] Last Admin: 01/05/18 08:21 Dose: 25 mg Ondansetron HCl (Zofran Inj) 4 mg IVP Q6 PRN PRN Reason: Nausea/Vomiting Pantoprazole Sodium (Protonix Ec Tab) 40 mg PO DAILY [facility] Last Admin: 01/05/18 08:21 Dose: 40 mg Sodium Chloride ([place] Nasal [place]) 1 sprays YADI TID [facility] Last Admin: 01/05/18 16:32 Dose: 1 unit Tamsulosin HCl (Flomax) 0.4 mg PO QPM [facility] Last Admin: 01/05/18 18:31 Dose: 0.4 mg - Labs Labs: 01/01/18 05:54 01/03/18 05:10 - Head Exam Head Exam: NORMAL INSPECTION - Eye Exam Eye Exam: Normal appearance - Respiratory Exam Respiratory Exam: NORMAL BREATHING PATTERN - Cardiovascular Exam Cardiovascular Exam: REGULAR RHYTHM - GI/Abdominal Exam GI & Abdominal Exam: Normal Bowel Sounds Assessment and Plan (1) Acute urinary retention Status: Acute (2) Pneumonia Status: Acute (3) HTN (hypertension) Status: Chronic (4) Asthma Status: Acute (5) GERD (gastroesophageal reflux disease) Status: Acute - Assessment and Plan (Free Text) Plan: Con tmeds Con ttx Cont PT
[2018-01-06] MEDS: Albuterol 0.083% Inhal Sol (2.5 mg/3 mL) UD INH SCH ×7 (00:09→23:58)
[2018-01-06] MEDS: Levothyroxine 75 MCG TAB PO SCH (06:22)
[2018-01-06] MEDS: Pantoprazole 40 mg EC Tab PO SCH (08:00)
[2018-01-06] MEDS: Nasal Spray(Ocean spray) NAS SCH ×4 (08:00→17:12)
[2018-01-06] MEDS: MethylPREDNISolone 40 mg Vial IVP SCH (08:01)
[2018-01-06] MEDS: Metoprolol Succinate 25 mg XL Tab PO SCH (08:02)
--- NOTE | 2018-01-06 12:15 | CP.PCM.PN ---
Subjective - Date & Time of Evaluation Date of Evaluation: 01/06/18 Time of Evaluation: 11:25 - Subjective Subjective: Stable, no acute distress, no events overnight. Stool softeners stopped due to lose stools. Patient feeling "good". Denies CP, SOB, abd pain, Greg removed by Sx. Objective - Vital Signs/Intake and Output Vital Signs (last 24 hours): Temp Pulse Resp BP Pulse Ox 98.4 F 72 20 117/65 93 L 01/06/18 09:00 01/06/18 09:00 01/06/18 09:00 01/06/18 09:00 01/06/18 09:00 - Medications Medications: Current Medications Acetaminophen (Tylenol 325mg Tab) 650 mg PO Q6 PRN PRN Reason: Fever >100.4 F Albuterol Sulfate (Albuterol 0.083% Inhal [place] (2.5 Mg/3 Ml) Ud) 2.5 mg INH RQ4 [facility] Last Admin: 01/06/18 11:32 Dose: 2.5 mg Docusate Sodium (Colace) 100 mg PO BID [facility] Last Admin: 01/06/18 07:59 Dose: 100 mg Finasteride (Proscar) 5 mg PO QPM [facility] Last Admin: 01/05/18 18:31 Dose: 5 mg Heparin Sodium (Porcine) (Heparin) 5,000 units SC Q8 [facility] PRN Reason: Protocol Last Admin: 01/06/18 07:59 Dose: 5,000 units Levothyroxine Sodium (Synthroid) 75 mcg PO DAILY@0630 [facility] Last Admin: 01/06/18 06:22 Dose: 75 mcg Methylprednisolone (Solu-Medrol) 30 mg IVP DAILY [facility] Last Admin: 01/06/18 08:01 Dose: 30 mg Metoclopramide HCl (Reglan) 5 mg PO BID [facility] Last Admin: 01/06/18 07:59 Dose: 5 mg Metoprolol Succinate (Toprol Xl) 25 mg PO DAILY [facility] Last Admin: 01/06/18 08:02 Dose: 25 mg Ondansetron HCl (Zofran Inj) 4 mg IVP Q6 PRN PRN Reason: Nausea/Vomiting Pantoprazole Sodium (Protonix Ec Tab) 40 mg PO DAILY [facility] Last Admin: 01/06/18 08:00 Dose: 40 mg Sodium Chloride ([place] Nasal [place]) 1 sprays YADI TID [facility] Last Admin: 01/06/18 12:12 Dose: 1 unit Tamsulosin HCl (Flomax) 0.4 mg PO QPM [facility] Last Admin: 01/05/18 18:31 Dose: 0.4 mg - Labs Labs: 01/01/18 05:54 01/03/18 05:10 - Constitutional Appears: Non-toxic, No Acute Distress - Eye Exam Eye Exam: EOMI, PERRL - ENT Exam ENT Exam: Mucous Membranes Moist - Respiratory Exam Respiratory Exam: NORMAL BREATHING PATTERN. absent: Rales, Wheezes, Respiratory Distress, Stridor - Cardiovascular Exam Cardiovascular Exam: REGULAR RHYTHM, +S1, +S2. absent: Gallop - GI/Abdominal Exam GI & Abdominal Exam: Soft, Normal Bowel Sounds. absent: Tenderness, Rebound Additional comments: Wound clean and dry. Slightly superficial dehiscence of Sx woun in lower part. NO drainage appreciated - Extremities Exam Extremities Exam: absent: Calf Tenderness, Pedal Edema, Tenderness - Neurological Exam Neurological Exam: Alert, Awake, Oriented x3 - Psychiatric Exam Psychiatric exam: Normal Affect, Normal Mood - Skin Skin Exam: Warm Assessment and Plan - Assessment and Plan (Free Text) Assessment: Aspiration pneumonia likely resolved Finished IV abx and resp exam is unremarkable S/P Laparotomy for SBO Greg removed C/w PT Anticipated DC tomorrow
[2018-01-07] MEDS: Albuterol 0.083% Inhal Sol (2.5 mg/3 mL) UD INH SCH ×3 (04:07→11:26)
[2018-01-07] MEDS: Levothyroxine 75 MCG TAB PO SCH (05:41)
[2018-01-07 07:52] VITALS: BP 131/64; PULSE 81; TEMP 97.9; O2SAT 98
[2018-01-07] MEDS: Pantoprazole 40 mg EC Tab PO SCH (08:20)
[2018-01-07] MEDS: Nasal Spray(Ocean spray) NAS SCH ×2 (08:20→12:01)
[2018-01-07] MEDS: Metoprolol Succinate 25 mg XL Tab PO SCH (08:20)
--- NOTE | 2018-01-07 08:23 | CP.PCM.DIS ---
Provider - Provider Date of Admission: 12/30/17 15:26 Attending physician: Gareth Kent MD Consults: Surgery Pulmonology Time Spent in preparation of Discharge (in minutes): 35 Diagnosis - Discharge Diagnosis (1) Intestinal obstruction Status: Acute Comment: SBO (2) Pneumonia Status: Acute Comment: Poss aspiration pneumonia Hospital Course - Lab Results Lab Results: Most Recent Lab Values WBC 7.2 K/uL (4.8-10.8) 01/01/18 05:54 RBC 3.44 Mil/uL (4.40-5.90) L 01/01/18 05:54 Hgb 11.3 g/dL (12.0-18.0) L 01/01/18 05:54 Hct 33.6 % (35.0-51.0) L 01/01/18 05:54 MCV 97.6 fl (80.0-94.0) H 01/01/18 05:54 MCH 32.7 pg (27.0-31.0) H 01/01/18 05:54 MCHC 33.5 g/dL (33.0-37.0) 01/01/18 05:54 RDW 13.4 % (11.5-14.5) 01/01/18 05:54 Plt Count 162 K/uL (130-400) 01/01/18 05:54 MPV 8.5 fl (7.2-11.7) 01/01/18 05:54 Neut % (Auto) 73.6 % (50.0-75.0) 01/01/18 05:54 Lymph % (Auto) 12.0 % (20.0-40.0) L 01/01/18 05:54 [place] % (Auto) 10.5 % (0.0-10.0) H 01/01/18 05:54 Eos % (Auto) 3.6 % (0.0-4.0) 01/01/18 05:54 Baso % (Auto) 0.3 % (0.0-2.0) 01/01/18 05:54 Neut # (Auto) 5.3 K/uL (1.8-7.0) 01/01/18 05:54 Lymph # (Auto) 0.9 K/uL (1.0-4.3) L 01/01/18 05:54 [place] # (Auto) 0.8 K/uL (0.0-0.8) 01/01/18 05:54 Eos # (Auto) 0.3 K/uL (0.0-0.7) 01/01/18 05:54 Baso # (Auto) 0.0 K/uL (0.0-0.2) 01/01/18 05:54 Sodium 141 mmol/l (132-148) 01/03/18 05:10 Potassium 3.8 MMOL/L (3.6-5.0) 01/03/18 05:10 Chloride 105 mmol/L (98-107) 01/03/18 05:10 Carbon Dioxide 28 mmol/L (22-30) 01/03/18 05:10 Anion Gap 12 (10-20) 01/03/18 05:10 BUN 24 mg/dl (9-20) H 01/03/18 05:10 Creatinine 1.1 mg/dl (0.8-1.5) 01/03/18 05:10 Est GFR ( Amer) > 60 01/03/18 05:10 Est GFR (Non-Af Amer) > 60 01/03/18 05:10 Random Glucose 122 mg/dL (75-110) H 01/03/18 05:10 Calcium 7.9 mg/dL (8.4-10.2) L 01/03/18 05:10 - Hospital Course Hospital Course: 87 y/o M with Hx of prostate problems, a.fib, hypothyroid, dysarthria, and CKD was admitted to hosp for SBO, successfully underwent laparotomy by Srugery team for correction of the obstruction, while in hosp he developed SOB and imaging studies were suspicious for Pneumonia, he was treated for poss aspiration pneumonia and after stable moved to TU unit for PT and finishing IV abx treatment. Patient progressed well during his TCU stay and today he is being discharge home and will f/u as outpatient with Sx and PMD. Discharge Exam - Head Exam Head Exam: NORMAL INSPECTION - Eye Exam Eye Exam: PERRL Pupil Exam: PERRL - ENT Exam ENT Exam: Mucous Membranes Moist - Respiratory Exam Respiratory Exam: Clear to PA & Lateral, NORMAL BREATHING PATTERN, UNREMARKABLE. absent: Chest Wall Tenderness, Decreased Breath Sounds - Cardiovascular Exam Cardiovascular Exam: REGULAR RHYTHM, +S1, +S2. absent: Gallop - GI/Abdominal Exam GI & Abdominal Exam: Normal Bowel Sounds, Soft, Unremarkable. absent: Distended , Guarding, Rebound, Rigid, Tenderness Additional comments: Sx scar. Slight superficial dehiscence inferior, no drainage or celulitis - Neurological Exam Neurological exam: Alert, Oriented x3 - Psychiatric Exam Psychiatric exam: Normal Affect, Normal Mood - Skin Skin Exam: Normal Color, Warm Discharge Plan - Follow Up Plan Condition: STABLE Disposition: HOME/ ROUTINE Patient education suggested?: Yes Instructions: Pneumonia in Adults, Small Bowel Obstruction Referrals: Gareth Kent MD [Family Provider] - Sen Copeland MD [Medical Doctor] -
== END 2018-01-07 13:30 | disposition home or self-care (01) | DRG 949 ==
LOC: H.TCU 15:26
PROVIDERS: ADMIT Family Medicine; ATTEND Family Medicine
PROC: F07Z9FZ Gait Training/Functional Ambulation Treatment using Assistive, Adaptive, Supportive or Protective Equipment (ICD-10-PCS; principal; 2017-12-30)
PROC: F08Z1FZ Dressing Techniques Treatment using Assistive, Adaptive, Supportive or Protective Equipment (ICD-10-PCS; 2017-12-30)
PROC: F07L6ZZ Therapeutic Exercise Treatment of Musculoskeletal System - Lower Back / Lower Extremity (ICD-10-PCS; 2017-12-30)
PROC: 5A0955Z Assistance with Respiratory Ventilation, Greater than 96 Consecutive Hours (ICD-10-PCS; 2017-12-30)
DX: Z48.815 Encounter for surgical aftercare following surgery on the digestive system (principal); J69.0 Pneumonitis due to inhalation of food and vomit; I48.91 Unspecified atrial fibrillation; E03.9 Hypothyroidism, unspecified; I12.9 Hypertensive chronic kidney disease with stage 1 through stage 4 chronic kidney disease, or unspecified chronic kidney disease; N18.9 Chronic kidney disease, unspecified; Z87.891 Personal history of nicotine dependence; R33.8 Other retention of urine; J45.909 Unspecified asthma, uncomplicated; K21.9 Gastro-esophageal reflux disease without esophagitis; N40.1 Benign prostatic hyperplasia with lower urinary tract symptoms

== ENCOUNTER 2018-10-28 10:30 | Emergency (ER) | payer MEDICARE ==
[2018-10-28 10:30] VITALS: BMI 16.7
[2018-10-28 10:43] VITALS: RESP 18; TEMP 98.3
--- NOTE | 2018-10-28 11:25 | ED PDOC ---
HPI: Chest Pain Time Seen by Provider: 10/28/18 10:45 Chief Complaint (Nursing): Rib Injury Chief Complaint (Provider): rib pain History Per: Patient History/Exam Limitations: no limitations Additional Complaint(s): 88 yo M with ATRIAL FIB.), HTN, Hypothyroidism, Chronic Kidney Disease who presents with left sided rib pain. Pt states that he slipped in shower in 08/2018 and hit his left rib on the hand rail. He had pain for several days but eventually dissipated. He did not seek medical attention at the time. He was doing well until a few days ago when he reached in to the refrigerator to get something and had pain and heard/felt a click. He states that the pain only occurs when he presses on his left side or with twisting motions. Denies substernal chest pain, radiation of pain to arm or jaw, dizziness, palpitations, SOB, dysuria. He is currently not having pain. Past Medical History Reviewed: Historical Data, Nursing Documentation, Vital Signs Vital Signs: Last Vital Signs Temp 98.3 F 10/28/18 10:42 Pulse 70 10/28/18 10:42 Resp 18 10/28/18 10:42 BP 144/83 10/28/18 10:42 Pulse Ox 95 10/28/18 10:42 - Medical History PMH: Benign Prostatic Hyperplasia, Cardia Arrhythmia (ATRIAL FIB.), COPD, HTN, Hypercholesterolemia, Hypothyroidism, Chronic Kidney Disease Denies: Atrial Fibrillation, Bipolar Disorder, HIV - Surgical History Surgical History: Tonsillectomy - Family History Family History: States: Unknown Family Hx - Immunization History Hx Tetanus Toxoid Vaccination: No Hx Influenza Vaccination: Yes Hx Pneumococcal Vaccination: Yes - Home Medications Home Medications: Ambulatory Orders Medication Instructions Recorded Calcitriol [Rocaltrol] 0.25 mcg PO DAILY 10/18/16 Calcium Acetate [Phoslo] 667 mg PO TID 12/30/16 Folic Acid/Vit B Complex and C 1 tab PO DAILY 12/30/16 [Renal Vitamin Tablet] Levothyroxine [Synthroid] 75 mcg PO DAILY 12/30/16 Ergocalciferol (Vitamin D2) 50,000 unit PO QWK 12/25/17 [Vitamin D2] Finasteride [Proscar] 5 mg PO QPM 12/25/17 Metoprolol Succinate XL [Toprol XL] 25 mg PO DAILY 12/25/17 Tamsulosin [Flomax] 0.4 mg PO QPM 12/25/17 Albuterol/Ipratropium [Duoneb 3 3 ml IH TID PRN 01/07/18 MG/3 Ml-0.5 MG/3 Ml 3 Ml] Prednisone [Deltasone] 20 mg PO DAILY 01/07/18 Acetaminophen [Tylenol 325mg tab] 650 mg PO Q6 PRN 7 Days tab 10/28/18 Ibuprofen [Motrin Tab] 600 mg PO Q6 PRN 7 Days tab 10/28/18 - Allergies Allergies/Adverse Reactions: Allergies Allergy/AdvReac Type Severity Reaction Status Date / Time No Known Allergies Allergy Verified 12/30/17 15:23 Physical Exam - Reviewed Nursing Documentation Reviewed: Yes Vital Signs Reviewed: Yes - Physical Exam Appears: Positive for: Well Skin: Positive for: Normal Color Neck: Positive for: Normal Cardiovascular/Chest: Positive for: Regular Rate, Rhythm Respiratory: Positive for: Normal Breath Sounds, Other (+ tenderness and click felt on palpation of left lateral rib cage. No ecchymosis, swelling or deformity noted. ) Gastrointestinal/Abdominal: Positive for: Normal Exam Back: Negative for: L CVA Tenderness, R CVA Tenderness Neurologic/Psych: Positive for: Alert, Oriented - Laboratory Results Result Diagrams: 10/28/18 11:38 10/28/18 11:38 - ECG O2 Sat by Pulse Oximetry: 95 Medical Decision Making Medical Decision Making: EKG Rib and PA lateral CXR URine dip CBC CMP Ibuprofen 600mg PO x 1 EKG: sinus, HR 71, no ischemic change. Rib x-ray: Displaced posterolateral Left 11th rib fracture. No PTX. Lungs clear. Patient informed of rib fracture and advised to avoid twisting movements/movement that brought on pain. Return to ER with SOB and no further intervention required as rib must heal on it's own. Patient demonstrated understanding. Patient is feeling well and is in NAD. Stable for d/c home. Disposition - Clinical Impression Clinical Impression: Closed rib fracture - Patient ED Disposition Is Patient to be Admitted: No Counseled Patient/Family Regarding: Studies Performed, Diagnosis, Need For Followup, Rx Given - Disposition Referrals: Gareth Kent MD [Staff Provider] - Disposition: Routine/Home Disposition Time: 13:06 Condition: STABLE Additional Instructions: Take Tylenol and Ibuprofen for pain. Avoid twisting motions as much as possible. Return to ER if you start having trouble breathing. Prescriptions: Acetaminophen [Tylenol 325mg tab] 650 mg PO Q6 PRN 7 Days tab PRN Reason: Pain, Moderate (4-7) Ibuprofen [Motrin Tab] 600 mg PO Q6 PRN 7 Days tab PRN Reason: Pain, Moderate (4-7) Forms: [employer] (Portuguese) Print Language: SERBIAN
[2018-10-28 12:12] LABS: BASO % 0.3 % (0.0-2.0); EOS # 0.1 K/uL (0.0-0.7); EOS % 0.8 % (0.0-4.0); HEMOGLOBIN 13.2 g/dL (12.0-18.0); LYMPH # 0.9 K/uL (1.0-4.3); LYMPH % 12.9 % (20.0-40.0); MEAN CELL VOLUME 100.4 fl (80.0-94.0); MEAN CORPUSCULAR HGB CONC 32.9 g/dL (33.0-37.0); MEAN PLATELET VOLUME 8.4 fl (7.2-11.7); MONO # 0.9 K/uL (0.0-0.8); MONO % 11.9 % (0.0-10.0); NEUT # 5.4 K/uL (1.8-7.0); NEUT % 74.1 % (50.0-75.0); NRBC % 0.2 % (0.0-0.0); RED CELL DISTRIBUTION WIDTH 13.5 % (11.5-14.5); WHITE BLOOD COUNT 7.3 K/uL (4.8-10.8)
[2018-10-28 12:27] LABS: ALB/GLOB RATIO 1.4 (1.0-2.1); ALBUMIN 3.9 g/dL (3.5-5.0); ALT/SGPT 25 U/L (21-72); AST/SGOT 25 U/L (17-59); BLOOD UREA NITROGEN 30 mg/dl (9-20); CALCIUM 9.8 mg/dL (8.4-10.2); GFR NON-AFRICAN AMERICAN 52
--- NOTE | 2018-10-28 12:51 | RAD ---
Date of service: 10/28/2018 PROCEDURE: Radiographs of the Chest and Left Ribs. HISTORY: fall 08/2018, recurrent pain and click COMPARISON: None available. TECHNIQUE: Frontal radiograph of the chest and multiple oblique radiographs of the left ribs were obtained. FINDINGS: LEFT RIBS: Displaced posterior lateral left 11th rib fracture. Grady LUNGS: Clear. PLEURA: No pneumothorax or pleural fluid. CARDIOVASCULAR: Normal cardiac size. No pulmonary vascular congestion. Atherosclerotic calcifications identified primarily aortic arch. OTHER FINDINGS: None. IMPRESSION: Solitary displaced posterolateral left rib fracture.
[2018-10-28 13:29] VITALS: BP 140/80; PULSE 74; O2SAT 98
--- NOTE | 2018-10-29 00:22 | CARD ---
APPROVED REPORT Date of service: 10/28/2018 EKG Measurement Heart [id number] <Conclusion> Normal sinus rhythm Normal ECG CPT PVC's no longer present
== END 2018-10-28 13:25 | disposition home or self-care (01) ==
LOC: H.ER 10:30
DX: S22.32XA Fracture of one rib, left side, initial encounter for closed fracture (principal); X50.1XXA Overexertion from prolonged static or awkward postures, initial encounter; E78.00 Pure hypercholesterolemia, unspecified; E03.9 Hypothyroidism, unspecified; I12.9 Hypertensive chronic kidney disease with stage 1 through stage 4 chronic kidney disease, or unspecified chronic kidney disease; N18.9 Chronic kidney disease, unspecified; I48.91 Unspecified atrial fibrillation

== ENCOUNTER 2019-02-05 13:35 | Emergency (ER) | payer MEDICARE ==
[2019-02-05 13:35] VITALS: BMI 16.7
[2019-02-05 14:11] VITALS: BP 163/91; PULSE 78; RESP 20; TEMP 97.8; O2SAT 93
--- NOTE | 2019-02-05 14:39 | ED PDOC ---
Upper Extremity Pain/Injury Time Seen by Provider: 02/05/19 14:25 Chief Complaint (Nursing): Finger,Hand,&Wrist Chief Complaint (Provider): Finger,Hand,&Wrist History Per: Patient History/Exam Limitations: no limitations Onset/Duration Of Symptoms: Days Current Symptoms Are (Timing): Still Present Additional Complaint(s): 88 y/o male with a PMHx of rib fracture presents to the ED for evaluation of pain in his fingers with twisting his left wrist when placing an object in the cabinet. Patient additionally reports of developing shortness of breath due to nasal congestion. Otherwise, patient denies cough, fever and chest pain. PMD: Gareth Kent Past Medical History Reviewed: Historical Data, Nursing Documentation, Vital Signs Vital Signs: Last Vital Signs Temp 97.8 F 02/05/19 14:07 Pulse 78 02/05/19 14:07 Resp 20 02/05/19 14:07 BP 163/91 H 02/05/19 14:07 Pulse Ox 93 L 02/05/19 14:07 - Medical History PMH: Benign Prostatic Hyperplasia, Cardia Arrhythmia (ATRIAL FIB.), COPD, HTN, Hypercholesterolemia, Hypothyroidism, Chronic Kidney Disease Denies: Atrial Fibrillation, Bipolar Disorder, HIV - Surgical History Surgical History: Tonsillectomy - Family History Family History: States: Unknown Family Hx - Immunization History Hx Tetanus Toxoid Vaccination: No Hx Influenza Vaccination: Yes Hx Pneumococcal Vaccination: Yes - Home Medications Home Medications: Ambulatory Orders Medication Instructions Recorded Calcitriol [Rocaltrol] 0.25 mcg PO DAILY 10/18/16 Calcium Acetate [Phoslo] 667 mg PO TID 12/30/16 Folic Acid/Vit B Complex and C 1 tab PO DAILY 12/30/16 [Renal Vitamin Tablet] Levothyroxine [Synthroid] 75 mcg PO DAILY 12/30/16 Ergocalciferol (Vitamin D2) 50,000 unit PO QWK 12/25/17 [Vitamin D2] Finasteride [Proscar] 5 mg PO QPM 12/25/17 Metoprolol Succinate XL [Toprol XL] 25 mg PO DAILY 12/25/17 Tamsulosin [Flomax] 0.4 mg PO QPM 12/25/17 Albuterol/Ipratropium [Duoneb 3 3 ml IH TID PRN 01/07/18 MG/3 Ml-0.5 MG/3 Ml 3 Ml] Prednisone [Deltasone] 20 mg PO DAILY 01/07/18 Acetaminophen [Tylenol 325mg tab] 650 mg PO Q6 PRN 7 Days tab 10/28/18 Ibuprofen [Motrin Tab] 600 mg PO Q6 PRN 7 Days tab 10/28/18 - Allergies Allergies/Adverse Reactions: Allergies Allergy/AdvReac Type Severity Reaction Status Date / Time No Known Allergies Allergy Verified 02/05/19 14:07 Review of Systems ROS Statement: Except As Marked, All Systems Reviewed And Found Negative ENT: Positive for: Nose Congestion Respiratory: Positive for: Shortness of Breath Musculoskeletal: Positive for: Hand Pain Physical Exam - Reviewed Nursing Documentation Reviewed: Yes Vital Signs Reviewed: Yes - Physical Exam Appears: Positive for: No Acute Distress Head Exam: Positive for: ATRAUMATIC, NORMOCEPHALIC Skin: Positive for: Normal Color Eye Exam: Positive for: Normal appearance Cardiovascular/Chest: Positive for: Regular Rate, Rhythm. Negative for: Murmur Respiratory: Positive for: Normal Breath Sounds Extremity: Positive for: Normal ROM (Able to open and close fingers). Negative for: Tenderness, Other (loss of senstaion) Neurological/Psych: Positive for: Awake, Alert, Oriented (x3). Negative for: Motor/Sensory Deficits - ECG O2 Sat by Pulse Oximetry: 93 (RA) Pulse Ox Interpretation: Normal - Progress ED Course And Treament: xry of wrist left : no fx xry of chest: rib fx noted left side Placed in volar splint Medical Decision Making Medical Decision Making: Time: 1418 Impression: Hand Pain and shortness of breath. Plan: -- Vital signs reviewed, patient's O2 saturation is 93%. -- CXR -- Wrist, Left 3 Views XR Time: 1512 CXR RESULTS Date of service: 02/05/2019 HISTORY: ROUTINE COMPARISON: No prior. TECHNIQUE: Chest PA and lateral views FINDINGS: LUNGS: Hyperinflation, manifestations of COPD. No active pulmonary disease. PLEURA: No significant pleural effusion identified. No pneumothorax apparent. CARDIOVASCULAR: No aortic atherosclerotic calcification present. Normal cardiac size. No pulmonary vascular congestion. OSSEOUS STRUCTURES: No significant abnormalities. Healed posterior lateral left 11th rib fracture. VISUALIZED UPPER ABDOMEN: Normal. OTHER FINDINGS: None. IMPRESSION: No active disease. No significant interval change compared to the prior examination(s). Time: 1513 WRIST XR Date of service: 02/05/2019 PROCEDURE: Left Wrist Radiographs. HISTORY: LEFT WRIST INJURY COMPARISON: None. TECHNIQUE: 4 views obtained. FINDINGS: BONES: Normal. No fracture. 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 SOFT TISSUES: Normal. OTHER FINDINGS: None. IMPRESSION: No acute findings related to/ accounting for the clinical presentation Scribe Attestation: Documented by Alvino Espinosa, acting as a scribe for Omar Daniels PA-C. Provider Scribe Attestation: All medical record entries made by the Scribe were at my direction and personally dictated by me. I have reviewed the chart and agree that the record accurately reflects my personal performance of the history, physical exam, medical decision making, and the department course for this patient. I have also personally directed, reviewed, and agree with the discharge instructions and disposition. Disposition - Clinical Impression Clinical Impression: Left wrist sprain - Patient ED Disposition Is Patient to be Admitted: No - Disposition Disposition: Routine/Home Disposition Time: 15:34 Condition: FAIR Instructions: Wrist Sprain (DC)
--- NOTE | 2019-02-05 15:40 | RAD ---
Date of service: 02/05/2019 HISTORY: ROUTINE COMPARISON: No prior. TECHNIQUE: Chest PA and lateral views FINDINGS: LUNGS: Hyperinflation, manifestations of COPD. No active pulmonary disease. PLEURA: No significant pleural effusion identified. No pneumothorax apparent. CARDIOVASCULAR: No aortic atherosclerotic calcification present. Normal cardiac size. No pulmonary vascular congestion. OSSEOUS STRUCTURES: No significant abnormalities. Healed posterior lateral left 11th rib fracture. VISUALIZED UPPER ABDOMEN: Normal. OTHER FINDINGS: None. IMPRESSION: No active disease. No significant interval change compared to the prior examination(s).
--- NOTE | 2019-02-05 15:42 | RAD ---
Date of service: 02/05/2019 PROCEDURE: Left Wrist Radiographs. HISTORY: LEFT WRIST INJURY COMPARISON: None. TECHNIQUE: 4 views obtained. FINDINGS: BONES: Normal. No fracture. 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 SOFT TISSUES: Normal. OTHER FINDINGS: None. IMPRESSION: No acute findings related to/ accounting for the clinical presentation.
== END 2019-02-05 15:45 | disposition home or self-care (01) ==
LOC: H.ER 13:35
DX: S63.502A Unspecified sprain of left wrist, initial encounter (principal); X50.9XXA Other and unspecified overexertion or strenuous movements or postures, initial encounter; Y92.89 Other specified places as the place of occurrence of the external cause; R06.02 Shortness of breath